=== PATIENT | male | born 1950 | race Caucasian/White ===

== ENCOUNTER 2017-09-17 20:32 | Inpatient (IN) | payer MEDICARE, MEDICAID ==
[~2017-09-17] VITALS: Ht 195.6 cm; Wt 112.0 kg
[2017-09-17 21:03] LABS: BASO # 0.1 x10^3/uL (0.0-0.2); BASO % 1 % (0-3); EOS # 0.5 x10^3/uL (0.0-0.7); EOS % 5 % (0-3); HEMATOCRIT 42.5 % (39.0-53.0); HEMOGLOBIN 14.5 g/dL (13.0-17.5); LYMPH # 2.2 x10^3/uL (1.0-4.8); LYMPH % 23 % (24-48); MEAN CORPUSCULAR HEMOGLOBIN 31 pg (25-35); MEAN CORPUSCULAR HGB CONC 34 g/dL (31-37); MEAN CORPUSCULAR VOLUME 91 fL (79-100); MONO # 0.6 x10^3/uL (0.0-1.1); MONO % 7 % (0-9); NEUT # 6.3 x10^3uL (1.8-7.7); NEUT % 65 % (31-73); PLATELET COUNT 213 x10^3/uL (140-400); RED BLOOD COUNT 4.66 x10^6/uL (4.30-5.70); RED CELL DISTRIBUTION WIDTH 15.5 % (11.5-14.5); WHITE BLOOD COUNT 9.8 x10^3/uL (4.0-11.0)
[2017-09-17 21:14] LABS: ALBUMIN 2.9 g/dL (3.4-5.0); ALBUMIN/GLOBULIN RATIO 0.7 (1.0-1.7); CALCIUM 9.3 mg/dL (8.5-10.1); GFR 74.3; POTASSIUM 4.1 mmol/L (3.5-5.1); TOTAL BILIRUBIN 0.5 mg/dL (0.2-1.0); TOTAL PROTEIN 7.3 g/dL (6.4-8.2)
[2017-09-17] MEDS ORDERED: BISA10SU2 RC (21:20)
[2017-09-17] MEDS ORDERED: APIX5TAB3 PO (21:20)
[2017-09-17] MEDS ORDERED: QUET25TA5 PO (21:20)
[2017-09-17] MEDS ORDERED: CARV25TA PO (21:20)
[2017-09-17] MEDS ORDERED: LISI-338 PO (21:20)
[2017-09-17] MEDS ORDERED: TRAM50TA PO (21:20)
[2017-09-17] MEDS ORDERED: MELA3TAB2 PO (21:20)
[2017-09-17] MEDS ORDERED: ACET325T9 PO (21:20)
[2017-09-17] MEDS ORDERED: POLY17PO5 PO (21:20)
[2017-09-17] MEDS ORDERED: LEXAPRO10 MG PO (21:20)
[2017-09-17] MEDS ORDERED: NA P133E2 RC (21:20)
[2017-09-17] MEDS ORDERED: CLOP75TA PO (21:20)
[2017-09-17] MEDS ORDERED: BACL10TA PO (21:20)
[2017-09-17] MEDS ORDERED: NYST60PO TP (21:20)
[2017-09-17] MEDS ORDERED: MULT-114 PO (21:20)
[2017-09-17] MEDS ORDERED: HYDR-971 PO (21:20)
[2017-09-17] MEDS ORDERED: SENN1TAB7 PO (21:20)
[2017-09-17] MEDS ORDERED: NITR0.4T SL (21:20)
[2017-09-17] MEDS ORDERED: ATOR10TA60 PO (21:20)
[2017-09-17] MEDS ORDERED: POTA20TA4 PO (21:20)
[2017-09-17] MEDS ORDERED: ZINC220T PO (21:20)
[2017-09-17] MEDS ORDERED: MAG355OR11 PO (21:20)
[2017-09-17] MEDS ORDERED: MAGN2400 PO (21:20)
[2017-09-17] MEDS ORDERED: AMIT50TA PO (21:20)
[2017-09-17] MEDS ORDERED: prostat PO (21:20)
[2017-09-17] MEDS ORDERED: ALLO300T PO (21:20)
[2017-09-17] MEDS ORDERED: [UNRECOGNIZED DRUG - CODE] PO (21:20)
[2017-09-17] MEDS ORDERED: FURO40TA4 PO (21:20)
--- NOTE | 2017-09-17 21:32 | PHYS DOC ---
Past History Past Medical History: A-Fib, Depression, Diabetes, High Cholesterol, Heart Disease, Hypertension, P.U.D, Other Past Surgical History: Other Alcohol Use: None Drug Use: None Adult General Chief Complaint Chief Complaint: PSYCH EVALUATION HPI HPI Patient is a 59-year-old gentleman who has a history significant for psychosis, insomnia, atrial fibrillation, delusional disorder, CVA with left sided residual weakness, epileptic spasms, presents here today secondary to need for medical clearance for evaluation by [facility]. Patient was sent from his nursing facility secondary to inappropriate sexual comments, refusing treatment and meds, increased agitation since admission, and verbalizing suicidal ideation with no plan. The patient currently without any other complaints. Patient has any fevers shakes chills nausea vomiting diarrhea. Review of systems: Constitutional: Denies fever or chills Eyes: Denies change in visual acuity, redness, or eye pain HENT: Denies nasal congestion or sore throat All other review systems are negative except as documented in the history of present illness portion. Physical exam: Constitutional: Well developed, well nourished, no acute distress, non-toxic appearance. HENT: Normocephalic, atraumatic, bilateral external ears normal, nose normal. Eyes: EOMI, conjunctiva normal, no discharge. Neck: Normal range of motion, no tenderness, supple, no stridor. Cardiovascular: Irregular rhythm Lungs & Thorax: Bilateral breath sounds clear to auscultation no respiratory distress Abdomen: Bowel sounds normal, soft, no tenderness, no masses, no pulsatile masses. Obese Skin: Warm, dry, no erythema, no rash. Back: No tenderness, no CVA tenderness. Extremities: No tenderness, no cyanosis, Neurologic: Alert and oriented X 3, Psychologic: Affect normal 59-year-old gentleman who presents here today secondary to need for medical clearance for [facility]. Patient's clinically and hemodynamically stable. Patient will be cleared for evaluation by [facility]. Patient is CBC, CMP which are both normal. Patient will have a UA is on EKG evaluated. Current Patient Data Vital Signs Vital Signs Date Time Temp Pulse Resp B/P (MAP) Pulse Ox O2 Delivery O2 Flow Rate FiO2 09/17/17 20:32 97.6 87 16 98 Room Air Lab Results Laboratory Tests Test 09/17/17 20:39 White Blood Count 9.8 x10^3/uL (4.0-11.0) Red Blood Count 4.66 x10^6/uL (4.30-5.70) Hemoglobin 14.5 g/dL (13.0-17.5) Hematocrit 42.5 % (39.0-53.0) Mean Corpuscular Volume 91 fL (79-100) Mean Corpuscular Hemoglobin 31 pg (25-35) Mean Corpuscular Hemoglobin Concent 34 g/dL (31-37) Red Cell Distribution Width 15.5 % (11.5-14.5) H Platelet Count 213 x10^3/uL (140-400) Neutrophils (%) (Auto) 65 % (31-73) Lymphocytes (%) (Auto) 23 % (24-48) L Monocytes (%) (Auto) 7 % (0-9) Eosinophils (%) (Auto) 5 % (0-3) H Basophils (%) (Auto) 1 % (0-3) Neutrophils # (Auto) 6.3 x10^3uL (1.8-7.7) Lymphocytes # (Auto) 2.2 x10^3/uL (1.0-4.8) Monocytes # (Auto) 0.6 x10^3/uL (0.0-1.1) Eosinophils # (Auto) 0.5 x10^3/uL (0.0-0.7) Basophils # (Auto) 0.1 x10^3/uL (0.0-0.2) Sodium Level 138 mmol/L (136-145) Potassium Level 4.1 mmol/L (3.5-5.1) Chloride Level 101 mmol/L (98-107) Carbon Dioxide Level 25 mmol/L (21-32) Anion Gap 12 (6-14) Blood Urea Nitrogen 18 mg/dL (8-26) Creatinine 1.0 mg/dL (0.7-1.3) Estimated GFR (Cockcroft-Gault) 74.3 BUN/Creatinine Ratio 18 (6-20) Glucose Level 174 mg/dL (70-99) H Calcium Level 9.3 mg/dL (8.5-10.1) Magnesium Level 2.0 mg/dL (1.8-2.4) Total Bilirubin 0.5 mg/dL (0.2-1.0) Aspartate Amino Transferase (AST) 23 U/L (15-37) Alanine Aminotransferase (ALT) 23 U/L (16-63) Alkaline Phosphatase 132 U/L (46-116) H Total Protein 7.3 g/dL (6.4-8.2) Albumin 2.9 g/dL (3.4-5.0) L Albumin/Globulin Ratio 0.7 (1.0-1.7) L EKG EKG [] Radiology/Procedures Radiology/Procedures [] Course & Med Decision Making Course & Med Decision Making Pertinent Labs and Imaging studies reviewed. (See chart for details) [] Dragon Disclaimer Dragon Disclaimer This electronic medical record was generated, in whole or in part, using a voice recognition dictation system. Departure Departure: Impression: Primary Impression: Depression Additional Impressions: Suicidal ideation Agitation Disposition: ADMITTED INPATIENT Condition: LEFT WITHOUT BEING SEEN Problem Qualifiers MOLLY FULTON MD Sep 17, 2017 21:32
[2017-09-17 21:57] LABS: BACTERIA,URINE 0 /HPF (0-FEW); BILIRUBIN,URINE NEG (NEG); CLARITY,URINE HAZY; COLOR,URINE YELLOW; GLUCOSE,URINE NEG (NEG); NITRITE,URINE NEG (NEG); SQUAMOUS EPITHELIAL CELL,UR FEW /LPF; UROBILINOGEN,URINE 1 mg/dL (0.2 mg/dL)
[2017-09-17 21:58] LABS: HYALINE CASTS, URINE FEW /HPF; YEAST,URINE PRESENT /HPF
[2017-09-17] MEDS ORDERED: CIPROFLOXACIN HCL 500 MG TABLET PO ONE ×2 (22:15→23:00)
[2017-09-17] MEDS ORDERED: METHYL SALICYLATE/MENTHOL TOPICAL OINTMENT 29GM TUBE. TP PRN (22:45)
[2017-09-17 22:57] VITALS: BP 130/78
[2017-09-18] MEDS: traMADol 50 MG TABLET PO SCH ×2 (00:03→20:58)
--- NOTE | 2017-09-18 00:57 | EKG ---
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
[2017-09-18] MEDS: MELATONIN 3 MG TABLET PO PRN ×2 (02:17→20:57)
[2017-09-18 05:52] VITALS: BP 129/70
[2017-09-18] MEDS ORDERED: BACLOFEN 10 MG TABLET PO PRN (08:15)
[2017-09-18] MEDS ORDERED: NYSTATIN TOPICAL POWDER 15GM BOTTLE. TP PRN (08:15)
[2017-09-18] MEDS ORDERED: NITROGLYCERIN SUBLINGUAL 0.4 MG BOTTLE OF 25. SL PRN (08:15)
[2017-09-18] MEDS ORDERED: SENNOSIDES/DOCUSATE 8.6/50MG TABLET. PO PRN (08:15)
[2017-09-18] MEDS ORDERED: SODIUM PHOSPHATES 19/7GM 133 ML ENEMA. RC PRN (08:15)
[2017-09-18] MEDS ORDERED: BISACODYL 10 MG SUPP.RECT RC PRN (08:15)
[2017-09-18] MEDS: APIXABAN 5 MG TABLET. PO SCH ×2 (09:58→17:08)
[2017-09-18] MEDS: CARVEDILOL 12.5 MG TABLET PO SCH ×2 (09:59→17:00)
[2017-09-18] MEDS: CLOPIDOGREL BISULFATE 75 MG TABLET PO SCH (09:59)
[2017-09-18] MEDS: FUROSEMIDE 40 MG TABLET PO SCH (09:59)
[2017-09-18] MEDS: QUEtiapine 25 MG TABLET. PO SCH ×2 (09:59→20:55)
[2017-09-18] MEDS: CITALOPRAM 20 MG TABLET. PO SCH (09:59)
[2017-09-18] MEDS: POLYETHYLENE GLYCOL 3350 17 GM PACKET. PO SCH (10:00)
[2017-09-18] MEDS: POTASSIUM CHLORIDE 20 MEQ TABLET.ER. PO SCH (10:00)
[2017-09-18] MEDS: ZINC SULFATE 220 MG CAPSULE. PO SCH (10:00)
[2017-09-18] MEDS: ALLOPURINOL 300 MG TABLET. PO SCH (10:00)
[2017-09-18] MEDS: LISINOPRIL 5 MG TABLET. PO SCH (10:00)
[2017-09-18] MEDS: ASCORBIC ACID 500 MG TABLET PO SCH (10:01)
[2017-09-18] MEDS: HYDROcodone/APAP 5/325MG 1 TAB TABLET PO PRN (10:30)
--- NOTE | 2017-09-18 11:50 | PDOC1 ---
History of Present Illness Reason for Visit: Behaviors History of Present Illness Pt sent from [facility] ER for evaluation in [facility] unit due to worsening depression, suicidal thoughts, inappropriate sexual comments. Pt has an extensive medical history. He is a max assist, wheelchair bound, and has a non stageable wound on his left heel and a wound on his sacral area as well (which pt says causes him quite a bit of pain). Pt has a hx of PE in June and afib, is on anticoagulation. Pt denies chest pain, SOA, coughing up blood, blood in stool, blood in urine, sore throat, dizziness, GARDNER, vision changes, abd pain, difficult swallowing, or skin rash. He tells me "I don't care what you do, but you're not cutting my toes or foot off, that's never happening." Chief Complaint: PSYCH EVALUATION Allergies: Coded Allergies: levofloxacin (Verified Allergy, Intermediate, 09/17/17) Past Medical History Cardiac: AFIB, HTN Pulmonary: Pulmonary embolus Psych: Depression Infectious disease: Human papilloma virus Dermatology: Other (Non-healing wounds) Past Surgical History: No pertinent history Family History: No pertinent hx Past Social History Smoke: No Lives: Detention Review of Systems Review Of Systems Fourteen system , review of systems has been reviewed. See HPI for pertinent positives and negative responses, other ortez all other systems are negative, non pertinent or non contributory Allergies: Coded Allergies: levofloxacin (Verified Allergy, Intermediate, 09/17/17) Medications Current Medications Ciprofloxacin (Cipro) 500 mg 1X ONCE PO ; Start 09/17/17 at 22:15; Stop at 22:30; Status DC Ciprofloxacin (Cipro) 500 mg 1X ONCE PO Last administered on 09/18/17at 00:08; Start 09/17/17 at 23:00; Stop 09/17/17 at 23:01; Status DC Multi-Ingredient Ointment (Analgesic [place]) 1 bob PRN QID PRN TP MUSCLE PAIN; Start 09/17/17 at 22:45 Amitriptyline HCl (Elavil) 50 mg HS PO ; Start 09/18/17 at 21:00 Quetiapine Fumarate (SEROquel) 25 mg BID PO Last administered on 09/18/17at 09: 59; Start 09/18/17 at 09:00 Citalopram Hydrobromide (CeleXA) 20 mg DAILY PO Last administered on 09/18/17at 09:59; Start 09/18/17 at 09:00 Melatonin 3 mg PRN QHS PRN PO INSOMNIA Last administered on 09/18/17at 02:17; Start 09/17/17 at 23:00 Tramadol HCl (Ultram) 100 mg QHS PO Last administered on 09/18/17at 00:03; Start 09/17/17 at 23:00 Acetaminophen (Tylenol) 650 mg PRN Q6HRS PRN PO PAIN / TEMP; Start 09/18/17 at 08:15 Allopurinol (Zyloprim) 300 mg DAILY PO Last administered on 09/18/17at 10:00; Start 09/18/17 at 09:00 Apixaban (Eliquis) 5 mg BIDWMEALS PO Last administered on 09/18/17at 09:58; Start 09/18/17 at 08:00 Ascorbic Acid (Vitamin C) 500 mg DAILY PO Last administered on 09/18/17at 10:01 ; Start 09/18/17 at 09:00 Atorvastatin Calcium (Lipitor) 10 mg QHS PO ; Start 09/18/17 at 21:00 Baclofen (Lioresal) 10 mg PRN Q6HRS PRN PO Epileptic Spasms; Start 09/18/17 at 08:15 Bisacodyl (Dulcolax Supp) 10 mg PRN DAILY PRN RC CONSTIPATION; Start 09/18/17 at 08:15 Clopidogrel Bisulfate (Plavix) 75 mg DAILY PO Last administered on 09/18/17at 09 :59; Start 09/18/17 at 09:00 Furosemide (Lasix) 40 mg DAILY PO Last administered on 09/18/17at 09:59; Start 09/18/17 at 09:00 Acetaminophen/ Hydrocodone Bitart (Lortab 5/325) 1 tab PRN Q6HRS PRN PO PAIN Last administered on 09/18/17at 10:30; Start 09/18/17 at 08:15 Lisinopril (Prinivil) 5 mg DAILY PO Last administered on 09/18/17at 10:00; Start 09/18/17 at 09:00 Sodium Biphosphate/ Sodium Phosphate (Fleet Adult) 133 ml PRN DAILY PRN RC CONSTIPATION; Start 09/18/17 at 08:15 Nitroglycerin (Nitrostat) 0.4 mg PRN Q5MIN PRN SL Unstable Angina; Start at 08:15 Nystatin (Nystop) 1 bob PRN BID PRN TP RASH; Start 09/18/17 at 08:15 Polyethylene Glycol (miraLAX) 17 gm DAILY PO Last administered on 09/18/17at 10: 00; Start 09/18/17 at 09:00 Potassium Chloride (Klor-Con) 20 meq DAILY PO Last administered on 09/18/17at 10 :00; Start 09/18/17 at 09:00 Senna/Docusate Sodium (Senna Plus) 2 tab PRN QHS PRN PO CONSTIPATION; Start at 08:15 Carvedilol (Coreg) 25 mg BIDWMEALS PO Last administered on 09/18/17at 09:59; Start 09/18/17 at 09:00 Zinc Sulfate (Orazinc) 220 mg DAILY PO Last administered on 09/18/17at 10:00; Start 09/18/17 at 09:00 Non-Formulary Medication ([prostat] ) 30 ml BIDWMEALS PO ; Start 09/18/17 at 17: 00; Status UNV Active Scripts Active Reported Furosemide 40 Mg Tablet 40 Mg PO DAILY Clopidogrel (Clopidogrel Bisulfate) 75 Mg Tablet 75 Mg PO DAILY Zinc Sulfate 220 Mg Tablet 220 Mg PO DAILY C-500 (Ascorbic Acid) 500 Mg Tablet 500 Mg PO DAILY Tylenol (Acetaminophen) 325 Mg Tablet 650 Mg PO PRN Q6HRS PRN Tramadol Hcl (Tramadol HCl) 50 Mg Tablet 100 Mg PO QHS Seroquel (Quetiapine Fumarate) 25 Mg Tablet 25 Mg PO BID Senna-Docusate Sodium Tablet (Sennosides/Docusate Sodium) 1 Each Tablet 2 Tab PO PRN QHS PRN [prostat] 30 Ml PO BIDWMEALS Klor-Con M20 (Potassium Chloride) 20 Meq Tab.er.prt 20 Meq PO DAILY Nystop (Nystatin) 60 Gm Powder 1 Bob TP PRN BID PRN [place] 5-325 Tablet (Hydrocodone Bit/Acetaminophen) 1 Each Tablet 1 Tab PO PRN Q6HRS PRN Nitrostat (Nitroglycerin) 0.4 Mg Tab.subl 0.4 Mg SL PRN Q5MIN PRN Maalox Advanced Suspension (Mag Hydrox/Aluminum Hyd/Simeth) 355 Ml Oral.susp 30 Ml PO PRN QID PRN Multivitamins With Minerals (Multivitamin With Minerals) 1 Each Tablet 1 Tab PO DAILY Miralax (Polyethylene Glycol 3350) 17 Gm Powd.pack 17 Gm PO DAILY Milk Of Magnesia (Magnesium Hydroxide) 2,400 Mg/10 Ml Oral.susp 2,400 Mg PO PRN QID PRN Melatonin 3 Mg Tablet 3 Mg PO PRN QHS PRN Lisinopril 5 Mg Tablet 5 Mg PO DAILY Lexapro (Escitalopram Oxalate) 10 Mg Tablet 10 Mg PO DAILY Fleet Enema (Na Phos,M-B/Na Phos,Di-Ba) 133 Ml Enema 133 Ml RC PRN DAILY PRN Eliquis (Apixaban) 5 Mg Tablet 5 Mg PO BIDWMEALS Coreg (Carvedilol) 25 Mg Tablet 25 Mg PO BIDWMEALS Bisacodyl 10 Mg Supp.rect 10 Mg RC PRN DAILY PRN Baclofen 10 Mg Tablet 10 Mg PO PRN Q6HRS PRN Atorvastatin Calcium 10 Mg Tablet 10 Mg PO QHS Amitriptyline Hcl 50 Mg Tablet 50 Mg PO HS Allopurinol 300 Mg Tablet 300 Mg PO DAILY Exam Vital Signs Vital Signs Date Time Temp Pulse Resp B/P (MAP) Pulse Ox O2 Delivery O2 Flow Rate FiO2 09/18/17 10:30 96 09/18/17 10:00 80 129/70 09/18/17 05:52 98.2 16 09/18/17 01:03 Room Air General Appearance: Alert, Oriented X3, Cooperative, No acute distress HEENT: Atraumatic, PERRLA, EOMI, Mucous membr. moist/pink, Other (Sclerae anicteric; Neck supple, no JVD, no LAD, ROM normal) Respiratory: Clear to auscultation, Normal air movement Heart: Other (Irregularly irregular, no murmur) Cardiac: AFIB Abdominal: Normal bowel sounds, Soft, No tenderness, No hepatospenomegaly, No masses Extremities: No edema, Other (DP pulses palpable but diminished bilaterally) Skin: No rashes (Wounds documented in chart, heel wound on left leg non stageable) Neuro: Normal speech, Cranial nerves 3-12 NL, Other (WC-bound) Psych/Mental Status: Other (Depressed, seems oriented) Assessment/Plan Assessment/Plan 1. Depression w/ abnormal behaviors/psychosis: Per Dr. Bell. 2. Afib: Rate controlled. COnt home meds. Cont NOAC for anticoagulation, pt high risk of stroke. 3. PE, hx oF: Cont NOAC. Monitor labs periodically. 4. Unstageable pressure ulcer left lower extremity: Wound care consult. padded heel cover. Pt w/ hx of osteomyelitis, unclear how long ago. Recently on Augmentin. WBC normal. Check ESR. Check left foot xray. 5. Sacral ulcer: Wound care consult. Frequent turning. padded chair. 6. Pyuria: 11-20 WBC's on UA but neg nitrite and 0 bacteria. No indication for abx. Pt given Cipro in ER, will not continue. COURSE Allergies Coded Allergies Type Severity Reaction Last Updated Verified levofloxacin Allergy Intermediate 09/17/17 Yes Laboratory Tests Test 09/17/17 20:39 09/17/17 20:57 09/18/17 07:48 White Blood Count 9.8 x10^3/uL (4.0-11.0) Red Blood Count 4.66 x10^6/uL (4.30-5.70) Hemoglobin 14.5 g/dL (13.0-17.5) Hematocrit 42.5 % (39.0-53.0) Mean Corpuscular Volume 91 fL (79-100) Mean Corpuscular Hemoglobin 31 pg (25-35) Mean Corpuscular Hemoglobin Concent 34 g/dL (31-37) Red Cell Distribution Width 15.5 % (11.5-14.5) Platelet Count 213 x10^3/uL (140-400) Neutrophils (%) (Auto) 65 % (31-73) Lymphocytes (%) (Auto) 23 % (24-48) Monocytes (%) (Auto) 7 % (0-9) Eosinophils (%) (Auto) 5 % (0-3) Basophils (%) (Auto) 1 % (0-3) Neutrophils # (Auto) 6.3 x10^3uL (1.8-7.7) Lymphocytes # (Auto) 2.2 x10^3/uL (1.0-4.8) Monocytes # (Auto) 0.6 x10^3/uL (0.0-1.1) Eosinophils # (Auto) 0.5 x10^3/uL (0.0-0.7) Basophils # (Auto) 0.1 x10^3/uL (0.0-0.2) Sodium Level 138 mmol/L (136-145) Potassium Level 4.1 mmol/L (3.5-5.1) Chloride Level 101 mmol/L (98-107) Carbon Dioxide Level 25 mmol/L (21-32) Anion Gap 12 (6-14) Blood Urea Nitrogen 18 mg/dL (8-26) Creatinine 1.0 mg/dL (0.7-1.3) Estimated GFR (Cockcroft-Gault) 74.3 BUN/Creatinine Ratio 18 (6-20) Glucose Level 174 mg/dL (70-99) Calcium Level 9.3 mg/dL (8.5-10.1) Magnesium Level 2.0 mg/dL (1.8-2.4) Total Bilirubin 0.5 mg/dL (0.2-1.0) Aspartate Amino Transf (AST/SGOT) 23 U/L (15-37) Alanine Aminotransferase (ALT/SGPT) 23 U/L (16-63) Alkaline Phosphatase 132 U/L (46-116) Total Protein 7.3 g/dL (6.4-8.2) Albumin 2.9 g/dL (3.4-5.0) Albumin/Globulin Ratio 0.7 (1.0-1.7) Urine Collection Type Unknown Urine Color Yellow Urine Clarity Hazy Urine pH 6.5 Urine Specific [place] 1.015 Urine Protein Trace (NEG-TRACE) Urine Glucose (UA) Neg mg/dL (NEG) Urine Ketones (Stick) Neg mg/dL (NEG) Urine Blood Neg (NEG) Urine Nitrite Neg (NEG) Urine Bilirubin Neg (NEG) Urine Urobilinogen Dipstick 1 mg/dL (0.2 mg/dL) Urine Leukocyte Esterase Trace (NEG) Urine RBC 1-2 /HPF (0-2) Urine WBC 11-20 /HPF (0-4) Urine Squamous Epithelial Cells Few /LPF Urine Bacteria 0 /HPF (0-FEW) Urine Hyaline Casts Few /HPF Urine Mucus Mod /LPF Urine Yeast Present /HPF Glucose (Fingerstick) 124 mg/dL (70-99) Current Medications Medications (Trade) Dose Ordered Sig/Shira Route PRN Reason Start Time Stop Time Status Last Admin Dose Admin Ciprofloxacin (Cipro) 500 mg 1X ONCE PO 09/17/17 22:15 09/17/17 22:30 DC Ciprofloxacin (Cipro) 500 mg 1X ONCE PO 09/17/17 23:00 09/17/17 23:01 DC 09/18/17 00:08 Multi-Ingredient Ointment (Analgesic [place]) 1 bob PRN QID PRN TP MUSCLE PAIN 09/17/17 22:45 Amitriptyline HCl (Elavil) 50 mg HS PO 09/18/17 21:00 Quetiapine Fumarate (SEROquel) 25 mg BID PO 09/18/17 09:00 09/18/17 09:59 Citalopram Hydrobromide (CeleXA) 20 mg DAILY PO 09/18/17 09:00 09/18/17 09:59 Melatonin 3 mg PRN QHS PRN PO INSOMNIA 09/17/17 23:00 09/18/17 02:17 Tramadol HCl (Ultram) 100 mg QHS PO 09/17/17 23:00 09/18/17 00:03 Acetaminophen (Tylenol) 650 mg PRN Q6HRS PRN PO PAIN / TEMP 09/18/17 08:15 Allopurinol (Zyloprim) 300 mg DAILY PO 09/18/17 09:00 09/18/17 10:00 Apixaban (Eliquis) 5 mg BIDWMEALS PO 09/18/17 08:00 09/18/17 09:58 Ascorbic Acid (Vitamin C) 500 mg DAILY PO 09/18/17 09:00 09/18/17 10:01 Atorvastatin Calcium (Lipitor) 10 mg QHS PO 09/18/17 21:00 Baclofen (Lioresal) 10 mg PRN Q6HRS PRN PO Epileptic Spasms 09/18/17 08:15 Bisacodyl (Dulcolax Supp) 10 mg PRN DAILY PRN RC CONSTIPATION 09/18/17 08:15 Clopidogrel Bisulfate (Plavix) 75 mg DAILY PO 09/18/17 09:00 09/18/17 09:59 Furosemide (Lasix) 40 mg DAILY PO 09/18/17 09:00 09/18/17 09:59 Acetaminophen/ Hydrocodone Bitart (Lortab 5/325) 1 tab PRN Q6HRS PRN PO PAIN 09/18/17 08:15 09/18/17 10:30 Lisinopril (Prinivil) 5 mg DAILY PO 09/18/17 09:00 09/18/17 10:00 Sodium Biphosphate/ Sodium Phosphate (Fleet Adult) 133 ml PRN DAILY PRN RC CONSTIPATION 09/18/17 08:15 Nitroglycerin (Nitrostat) 0.4 mg PRN Q5MIN PRN SL Unstable Angina 09/18/17 08:15 Nystatin (Nystop) 1 bob PRN BID PRN TP RASH 09/18/17 08:15 Polyethylene Glycol (miraLAX) 17 gm DAILY PO 09/18/17 09:00 09/18/17 10:00 Potassium Chloride (Klor-Con) 20 meq DAILY PO 09/18/17 09:00 09/18/17 10:00 Senna/Docusate Sodium (Senna Plus) 2 tab PRN QHS PRN PO CONSTIPATION 09/18/17 08:15 Carvedilol (Coreg) 25 mg BIDWMEALS PO 09/18/17 09:00 09/18/17 09:59 Zinc Sulfate (Orazinc) 220 mg DAILY PO 09/18/17 09:00 09/18/17 10:00 Non-Formulary Medication ([prostat] ) 30 ml BIDWMEALS PO 09/18/17 17:00 UNV Vital Signs Date Time Temp Pulse Resp B/P (MAP) Pulse Ox O2 Delivery O2 Flow Rate FiO2 09/18/17 10:30 96 09/18/17 10:00 80 129/70 09/18/17 05:52 98.2 16 09/18/17 01:03 Room Air EKG: Afib, no acute ischemia JUAN ABURTO MD Sep 18, 2017 11:50
[2017-09-18 12:16] LABS: THYROID STIM HORMONE (TSH) 0.634 uIU/mL (0.358-3.740)
[2017-09-18 16:03] VITALS: BP 92/58
--- NOTE | 2017-09-18 16:13 | RAD ---
Left foot, 3 views, 09/18/2017: History: Heel ulcer, infection, possible osteomyelitis Moderate patchy bony demineralization is evident. There is a mild hallux valgus deformity with moderate degenerative change at the first MTP joint. There are additional moderate scattered degenerative changes at interphalangeal joints and the midfoot level. No acute fracture or destructive bony lesion is seen. Extensive arterial calcifications are present. Surgical clips are evident medially at the ankle level. IMPRESSION: 1. Patchy bony demineralization. 2. Moderate degenerative changes. 3. No acute bony abnormality is detected.
[2017-09-18] MEDS ORDERED: PROSTAT PO SCH (17:00)
[2017-09-18 17:40] VITALS: BP 101/62
[2017-09-18 19:10] LABS: T3 TOTAL 88 ng/dL (71-180); THYROXINE 6.8 ug/dL (4.5-12.0)
[2017-09-18] MEDS: AMITRIPTYLINE HCL 50 MG TABLET PO SCH (20:57)
[2017-09-18] MEDS: ATORVASTATIN CALCIUM 10 MG TABLET. PO SCH (20:57)
--- NOTE | 2017-09-18 20:58 | PDOC ---
Exam Note: Bon Note: Please also refer to the separate dictated note~for this date of service dictated separately.~Patient seen individually. Discussed the patient with Nursing staff reviewed the chart.~Reviewed interim history and current functioning. Reviewed vital signs,~Labs/ Radiology~and current medications noted below. Continue current treatment with the changes noted in the dictated addendum note Assessment: Vital Signs: Vital Signs Date Time Temp Pulse Resp B/P (MAP) Pulse Ox O2 Delivery O2 Flow Rate FiO2 09/18/17 17:40 56 20 101/62 (75) Room Air 09/18/17 16:03 97.5 97 Labs: Laboratory Tests Test 09/18/17 07:48 09/18/17 15:40 Glucose (Fingerstick) 124 mg/dL (70-99) H Erythrocyte Sedimentation Rate 24 (0-15) H Current Medications: Meds: Current Medications Ciprofloxacin (Cipro) 500 mg 1X ONCE PO ; Start 09/17/17 at 22:15; Stop at 22:30; Status DC Ciprofloxacin (Cipro) 500 mg 1X ONCE PO Last administered on 09/18/17at 00:08; Start 09/17/17 at 23:00; Stop 09/17/17 at 23:01; Status DC Multi-Ingredient Ointment (Analgesic [place]) 1 bob PRN QID PRN TP MUSCLE PAIN; Start 09/17/17 at 22:45 Amitriptyline HCl (Elavil) 50 mg HS PO ; Start 09/18/17 at 21:00 Quetiapine Fumarate (SEROquel) 25 mg BID PO Last administered on 09/18/17at 09: 59; Start 09/18/17 at 09:00 Citalopram Hydrobromide (CeleXA) 20 mg DAILY PO Last administered on 09/18/17at 09:59; Start 09/18/17 at 09:00 Melatonin 3 mg PRN QHS PRN PO INSOMNIA Last administered on 09/18/17at 02:17; Start 09/17/17 at 23:00 Tramadol HCl (Ultram) 100 mg QHS PO Last administered on 09/18/17at 00:03; Start 09/17/17 at 23:00 Acetaminophen (Tylenol) 650 mg PRN Q6HRS PRN PO PAIN / TEMP; Start 09/18/17 at 08:15 Allopurinol (Zyloprim) 300 mg DAILY PO Last administered on 09/18/17at 10:00; Start 09/18/17 at 09:00 Apixaban (Eliquis) 5 mg BIDWMEALS PO Last administered on 09/18/17at 17:08; Start 09/18/17 at 08:00 Ascorbic Acid (Vitamin C) 500 mg DAILY PO Last administered on 09/18/17at 10:01 ; Start 09/18/17 at 09:00 Atorvastatin Calcium (Lipitor) 10 mg QHS PO ; Start 09/18/17 at 21:00 Baclofen (Lioresal) 10 mg PRN Q6HRS PRN PO Epileptic Spasms; Start 09/18/17 at 08:15 Bisacodyl (Dulcolax Supp) 10 mg PRN DAILY PRN RC CONSTIPATION; Start 09/18/17 at 08:15 Clopidogrel Bisulfate (Plavix) 75 mg DAILY PO Last administered on 09/18/17at 09 :59; Start 09/18/17 at 09:00 Furosemide (Lasix) 40 mg DAILY PO Last administered on 09/18/17at 09:59; Start 09/18/17 at 09:00 Acetaminophen/ Hydrocodone Bitart (Lortab 5/325) 1 tab PRN Q6HRS PRN PO PAIN Last administered on 09/18/17at 10:30; Start 09/18/17 at 08:15 Lisinopril (Prinivil) 5 mg DAILY PO Last administered on 09/18/17at 10:00; Start 09/18/17 at 09:00 Sodium Biphosphate/ Sodium Phosphate (Fleet Adult) 133 ml PRN DAILY PRN RC CONSTIPATION; Start 09/18/17 at 08:15 Nitroglycerin (Nitrostat) 0.4 mg PRN Q5MIN PRN SL Unstable Angina; Start at 08:15 Nystatin (Nystop) 1 bob PRN BID PRN TP RASH; Start 09/18/17 at 08:15 Polyethylene Glycol (miraLAX) 17 gm DAILY PO Last administered on 09/18/17at 10: 00; Start 09/18/17 at 09:00 Potassium Chloride (Klor-Con) 20 meq DAILY PO Last administered on 09/18/17at 10 :00; Start 09/18/17 at 09:00 Senna/Docusate Sodium (Senna Plus) 2 tab PRN QHS PRN PO CONSTIPATION; Start at 08:15 Carvedilol (Coreg) 25 mg BIDWMEALS PO Last administered on 09/18/17at 09:59; Start 09/18/17 at 09:00 Zinc Sulfate (Orazinc) 220 mg DAILY PO Last administered on 09/18/17at 10:00; Start 09/18/17 at 09:00 Non-Formulary Medication ([prostat] ) 30 ml BIDWMEALS PO ; Start 09/18/17 at 17: 00; Status UNV Active Scripts Active Reported Furosemide 40 Mg Tablet 40 Mg PO DAILY Clopidogrel (Clopidogrel Bisulfate) 75 Mg Tablet 75 Mg PO DAILY Zinc Sulfate 220 Mg Tablet 220 Mg PO DAILY C-500 (Ascorbic Acid) 500 Mg Tablet 500 Mg PO DAILY Tylenol (Acetaminophen) 325 Mg Tablet 650 Mg PO PRN Q6HRS PRN Tramadol Hcl (Tramadol HCl) 50 Mg Tablet 100 Mg PO QHS Seroquel (Quetiapine Fumarate) 25 Mg Tablet 25 Mg PO BID Senna-Docusate Sodium Tablet (Sennosides/Docusate Sodium) 1 Each Tablet 2 Tab PO PRN QHS PRN [prostat] 30 Ml PO BIDWMEALS Klor-Con M20 (Potassium Chloride) 20 Meq Tab.er.prt 20 Meq PO DAILY Nystop (Nystatin) 60 Gm Powder 1 Bob TP PRN BID PRN [place] 5-325 Tablet (Hydrocodone Bit/Acetaminophen) 1 Each Tablet 1 Tab PO PRN Q6HRS PRN Nitrostat (Nitroglycerin) 0.4 Mg Tab.subl 0.4 Mg SL PRN Q5MIN PRN Maalox Advanced Suspension (Mag Hydrox/Aluminum Hyd/Simeth) 355 Ml Oral.susp 30 Ml PO PRN QID PRN Multivitamins With Minerals (Multivitamin With Minerals) 1 Each Tablet 1 Tab PO DAILY Miralax (Polyethylene Glycol 3350) 17 Gm Powd.pack 17 Gm PO DAILY Milk Of Magnesia (Magnesium Hydroxide) 2,400 Mg/10 Ml Oral.susp 2,400 Mg PO PRN QID PRN Melatonin 3 Mg Tablet 3 Mg PO PRN QHS PRN Lisinopril 5 Mg Tablet 5 Mg PO DAILY Lexapro (Escitalopram Oxalate) 10 Mg Tablet 10 Mg PO DAILY Fleet Enema (Na Phos,M-B/Na Phos,Di-Ba) 133 Ml Enema 133 Ml RC PRN DAILY PRN Eliquis (Apixaban) 5 Mg Tablet 5 Mg PO BIDWMEALS Coreg (Carvedilol) 25 Mg Tablet 25 Mg PO BIDWMEALS Bisacodyl 10 Mg Supp.rect 10 Mg RC PRN DAILY PRN Baclofen 10 Mg Tablet 10 Mg PO PRN Q6HRS PRN Atorvastatin Calcium 10 Mg Tablet 10 Mg PO QHS Amitriptyline Hcl 50 Mg Tablet 50 Mg PO HS Allopurinol 300 Mg Tablet 300 Mg PO DAILY I have reviewed the current psychotropics carefully including drug interactions. Risk benefit ratio favors no change other than as noted in my dictated progress note. Diagnosis: Problems: (1) Anxiety disorder (2) Major depressive disorder, recurrent episode (3) Mild cognitive impairment MARILY LARSON MD Sep 18, 2017 20:58
[2017-09-19 03:18] LABS: HEMOGLOBIN A1C 5.3 % (4.8-5.6)
[2017-09-19 05:52] VITALS: BP 108/59
[2017-09-19] MEDS: ASCORBIC ACID 500 MG TABLET PO SCH (07:47)
[2017-09-19] MEDS: QUEtiapine 25 MG TABLET. PO SCH ×2 (07:47→19:57)
[2017-09-19] MEDS: POLYETHYLENE GLYCOL 3350 17 GM PACKET. PO SCH (07:47)
[2017-09-19] MEDS: CITALOPRAM 20 MG TABLET. PO SCH (07:49)
[2017-09-19] MEDS: CLOPIDOGREL BISULFATE 75 MG TABLET PO SCH (07:49)
[2017-09-19] MEDS: ZINC SULFATE 220 MG CAPSULE. PO SCH (07:49)
[2017-09-19] MEDS: FUROSEMIDE 40 MG TABLET PO SCH (07:49)
[2017-09-19] MEDS: ALLOPURINOL 300 MG TABLET. PO SCH (07:50)
[2017-09-19] MEDS: POTASSIUM CHLORIDE 20 MEQ TABLET.ER. PO SCH (07:50)
[2017-09-19] MEDS: APIXABAN 5 MG TABLET. PO SCH ×2 (07:50→17:36)
[2017-09-19] MEDS: LISINOPRIL 5 MG TABLET. PO SCH (08:25)
[2017-09-19] MEDS: CARVEDILOL 12.5 MG TABLET PO SCH ×2 (08:26→17:36)
[2017-09-19 08:27] VITALS: BP 125/70
--- NOTE | 2017-09-19 09:49 | HP ---
ADMIT DATE: 09/17/2017 This is a late entry of 09/18/2017 covers elements not covered in my initial note 09/18/2017. IDENTIFYING DATA: The patient is a 67-year-old male referred to us from [facility] by Dr. Hema Bonilla, his primary care physician and Dr. Sebastian, his psychiatrist on account of worsening suicidal ideation within the context of increased symptoms of depression, refusing medications and cares, being sexually inappropriate in his comments to staff. Agitation was increasing. He was unmanageable. The stress appeared to be possible suicide or accidental of his only son after the son fell off a scaffolding at the [employer] and the patient refuses to accept what they alleged was a suicide by the son. CHIEF COMPLAINT: "Yes, I am very depressed. I can't handle it. There is no point of living." HISTORY OF PRESENT ILLNESS: The patient has a history of worsening symptoms of depression for the past several weeks, much worse in the past several days. As noted, he admits to feeling helpless, hopeless, worthless with a suicidal repetitive thinking but without a plan. He admits to sleep and appetite changes, increased irritability, feeling there is nothing to look forward to. He is refusing his cares and treatments with worsening medical condition as a consequence of this including with respect to his wound care. He has also had worsening short term memory deficits. No clear symptoms of bipolar disorder or homicidal ideation. PAST PSYCHIATRIC HISTORY: As above. MEDICAL HISTORY: History of pulmonary embolism in 06/2017, history of BPH, hypertension, hyperlipidemia, osteomyelitis, status post TIA, CVA with left-sided weakness, diabetes mellitus, seizure disorder, atrial fibrillation, chronic pain, gout, dermatitis, malnutrition, ischemic cardiomyopathy, peripheral vascular disease, peripheral neuropathy, angina pectoris, pressure ulcer left heel which is unstageable. Accu-Cheks a.c. and at bedtime. CODE STATUS: DNR. ALLERGIES: LEVAQUIN. DIET: Regular, ADA. MEDICATIONS: Takes his medication whole when he does. Ambulates and wheelchair transfers needs ____ assist. No weightbearing on the left foot. UA was positive, 09/17/2017 in the ER, given Cipro x 1. The patient on the unit has been on a Broda chair and needs Clifford lift. CURRENT PSYCHOTROPICS: Amitriptyline 50 mg daily, melatonin 3 mg at bedtime p.r.n., Seroquel 25 mg b.i.d., melatonin p.r.n. In addition dietary as recommended, glucose control Boost in the morning and night in addition to his other diet prescribed. FAMILY HISTORY: Noncontributory. SOCIAL HISTORY: No alcohol, drug abuse, physical, sexual or elder abuse history is noted. He is not known to be a perpetrator, but has been making sexually inappropriate comments to nursing staff recently as noted above. 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 MENTAL STATUS EXAM: The patient was seen individually evening of 09/18/2017. He is in a Broda chair, oriented to self and situation, felt he had been here for 3 days whereas in fact he was admitted the previous evening. Speech has some latency, coherent. Abstraction fair, computation impaired, language function intact. Mood and affect is depressed. Admits to feeling helpless, hopeless and worthless. Denies active intent to hurt himself. Short-term memory is impaired. REVIEW OF SYSTEMS: Ambulation impaired, discomfort in his heel area. No CV, , pulmonary, eye system symptoms on review. IMPRESSION: Major depressive disorder, recurrent, severe with suicidal ideation. Major neurocognitive disorder, early vascular with depression, anxiety disorder unspecified, impulse control disorder unspecified. Rest unchanged from above. PLAN: Admit to Geropsychiatry unit at [facility]. I will see the patient daily individually from a psychiatric standpoint, medical followup per Dr. Dyer/Dr. Wellington. In fact, Dr. Bowman is covering this week. Continue current psychotropics, change the amitriptyline to bedtime, starting 09/19/2017 we will add Wellbutrin-XL 150 mg a day and increase gradually. Adjust further as clinically indicated. MAN Tatiana LARSON MD DR: ALEXSANDER/ana maria JOB#: [id number] / [id number]
[2017-09-19 16:11] VITALS: BP 112/68
[2017-09-19] MEDS: buPROPion XL 150 MG TAB.ER.24H PO SCH (17:36)
[2017-09-19] MEDS: ATORVASTATIN CALCIUM 10 MG TABLET. PO SCH (19:56)
[2017-09-19] MEDS: AMITRIPTYLINE HCL 50 MG TABLET PO SCH (19:56)
[2017-09-19] MEDS: traMADol 50 MG TABLET PO SCH (19:58)
--- NOTE | 2017-09-19 20:59 | PDOC ---
Exam Note: Bon Note: Please also refer to the separate dictated note~for this date of service dictated separately.~Patient seen individually. Discussed the patient with Nursing staff reviewed the chart.~Reviewed interim history and current functioning. Reviewed vital signs,~Labs/ Radiology~and current medications noted below. Continue current treatment with the changes noted in the dictated addendum note Assessment: Vital Signs: Vital Signs Date Time Temp Pulse Resp B/P (MAP) Pulse Ox O2 Delivery O2 Flow Rate FiO2 09/19/17 19:58 18 97 Room Air 09/19/17 17:36 66 112/68 09/19/17 16:11 97.7 I&O Intake and Output 09/19/17 07:00 Intake Total 1040 ml Balance 1040 ml Intake Oral 1040 ml Labs: Laboratory Tests Test 09/19/17 07:23 Glucose (Fingerstick) 117 mg/dL (70-99) H Current Medications: Meds: Current Medications Ciprofloxacin (Cipro) 500 mg 1X ONCE PO ; Start 09/17/17 at 22:15; Stop at 22:30; Status DC Ciprofloxacin (Cipro) 500 mg 1X ONCE PO Last administered on 09/18/17at 00:08; Start 09/17/17 at 23:00; Stop 09/17/17 at 23:01; Status DC Multi-Ingredient Ointment (Analgesic Mcgrann) 1 bob PRN QID PRN TP MUSCLE PAIN; Start 09/17/17 at 22:45 Amitriptyline HCl (Elavil) 50 mg HS PO Last administered on 09/19/17at 19:56; Start 09/18/17 at 21:00 Quetiapine Fumarate (SEROquel) 25 mg BID PO Last administered on 09/19/17at 19: 57; Start 09/18/17 at 09:00 Citalopram Hydrobromide (CeleXA) 20 mg DAILY PO Last administered on 09/19/17at 07:49; Start 09/18/17 at 09:00 Melatonin 3 mg PRN QHS PRN PO INSOMNIA Last administered on 09/18/17at 20:57; Start 09/17/17 at 23:00 Tramadol HCl (Ultram) 100 mg QHS PO Last administered on 09/19/17at 19:58; Start 09/17/17 at 23:00 Acetaminophen (Tylenol) 650 mg PRN Q6HRS PRN PO PAIN / TEMP; Start 09/18/17 at 08:15 Allopurinol (Zyloprim) 300 mg DAILY PO Last administered on 09/19/17 07:50; Start 09/18/17 at 09:00 Apixaban (Eliquis) 5 mg BIDWMEALS PO Last administered on 09/19/17 17:36; Start 09/18/17 at 08:00 Ascorbic Acid (Vitamin C) 500 mg DAILY PO Last administered on 09/19/17 07:47 ; Start 09/18/17 at 09:00 Atorvastatin Calcium (Lipitor) 10 mg QHS PO Last administered on 09/19/17 19: 56; Start 09/18/17 at 21:00 Baclofen (Lioresal) 10 mg PRN Q6HRS PRN PO Epileptic Spasms; Start 09/18/17 at 08:15 Bisacodyl (Dulcolax Supp) 10 mg PRN DAILY PRN RC CONSTIPATION; Start 09/18/17 at 08:15 Clopidogrel Bisulfate (Plavix) 75 mg DAILY PO Last administered on 09/19/17 07 :49; Start 09/18/17 at 09:00 Furosemide (Lasix) 40 mg DAILY PO Last administered on 09/19/17 07:49; Start 09/18/17 at 09:00 Acetaminophen/ Hydrocodone Bitart (Lortab 5/325) 1 tab PRN Q6HRS PRN PO PAIN Last administered on 09/18/17 10:30; Start 09/18/17 at 08:15 Lisinopril (Prinivil) 5 mg DAILY PO Last administered on 09/19/17at 08:25; Start 09/18/17 at 09:00 Sodium Biphosphate/ Sodium Phosphate (Fleet Adult) 133 ml PRN DAILY PRN RC CONSTIPATION; Start 09/18/17 at 08:15 Nitroglycerin (Nitrostat) 0.4 mg PRN Q5MIN PRN SL Unstable Angina; Start at 08:15 Nystatin (Nystop) 1 bob PRN BID PRN TP RASH; Start 09/18/17 at 08:15 Polyethylene Glycol (miraLAX) 17 gm DAILY PO Last administered on 09/19/17 07: 47; Start 09/18/17 at 09:00 Potassium Chloride (Klor-Con) 20 meq DAILY PO Last administered on 09/19/17at 07 :50; Start 09/18/17 at 09:00 Senna/Docusate Sodium (Senna Plus) 2 tab PRN QHS PRN PO CONSTIPATION; Start at 08:15 Carvedilol (Coreg) 25 mg BIDWMEALS PO Last administered on 09/19/17at 17:36; Start 09/18/17 at 09:00 Zinc Sulfate (Orazinc) 220 mg DAILY PO Last administered on 09/19/17at 07:49; Start 09/18/17 at 09:00 Non-Formulary Medication ([prostat] ) 30 ml BIDWMEALS PO ; Start 09/18/17 at 17: 00; Status UNV Bupropion HCl (Wellbutrin Xl) 150 mg DAILY PO Last administered on 09/19/17at 17 :36; Start 09/19/17 at 14:00 Active Scripts Active Reported Furosemide 40 Mg Tablet 40 Mg PO DAILY Clopidogrel (Clopidogrel Bisulfate) 75 Mg Tablet 75 Mg PO DAILY Zinc Sulfate 220 Mg Tablet 220 Mg PO DAILY C-500 (Ascorbic Acid) 500 Mg Tablet 500 Mg PO DAILY Tylenol (Acetaminophen) 325 Mg Tablet 650 Mg PO PRN Q6HRS PRN Tramadol Hcl (Tramadol HCl) 50 Mg Tablet 100 Mg PO QHS Seroquel (Quetiapine Fumarate) 25 Mg Tablet 25 Mg PO BID Senna-Docusate Sodium Tablet (Sennosides/Docusate Sodium) 1 Each Tablet 2 Tab PO PRN QHS PRN [prostat] 30 Ml PO BIDWMEALS Klor-Con M20 (Potassium Chloride) 20 Meq Tab.er.prt 20 Meq PO DAILY Nystop (Nystatin) 60 Gm Powder 1 Bob TP PRN BID PRN [place] 5-325 Tablet (Hydrocodone Bit/Acetaminophen) 1 Each Tablet 1 Tab PO PRN Q6HRS PRN Nitrostat (Nitroglycerin) 0.4 Mg Tab.subl 0.4 Mg SL PRN Q5MIN PRN Maalox Advanced Suspension (Mag Hydrox/Aluminum Hyd/Simeth) 355 Ml Oral.susp 30 Ml PO PRN QID PRN Multivitamins With Minerals (Multivitamin With Minerals) 1 Each Tablet 1 Tab PO DAILY Miralax (Polyethylene Glycol 3350) 17 Gm Powd.pack 17 Gm PO DAILY Milk Of Magnesia (Magnesium Hydroxide) 2,400 Mg/10 Ml Oral.susp 2,400 Mg PO PRN QID PRN Melatonin 3 Mg Tablet 3 Mg PO PRN QHS PRN Lisinopril 5 Mg Tablet 5 Mg PO DAILY Lexapro (Escitalopram Oxalate) 10 Mg Tablet 10 Mg PO DAILY Fleet Enema (Na Phos,M-B/Na Phos,Di-Ba) 133 Ml Enema 133 Ml RC PRN DAILY PRN Eliquis (Apixaban) 5 Mg Tablet 5 Mg PO BIDWMEALS Coreg (Carvedilol) 25 Mg Tablet 25 Mg PO BIDWMEALS Bisacodyl 10 Mg Supp.rect 10 Mg RC PRN DAILY PRN Baclofen 10 Mg Tablet 10 Mg PO PRN Q6HRS PRN Atorvastatin Calcium 10 Mg Tablet 10 Mg PO QHS Amitriptyline Hcl 50 Mg Tablet 50 Mg PO HS Allopurinol 300 Mg Tablet 300 Mg PO DAILY I have reviewed the current psychotropics carefully including drug interactions. Risk benefit ratio favors no change other than as noted in my dictated progress note. Diagnosis: Problems: (1) Anxiety disorder (2) Major depressive disorder, recurrent episode (3) Mild cognitive impairment MARILY LARSON MD Sep 19, 2017 20:59
[2017-09-20 05:49] VITALS: BP 110/67
[2017-09-20 07:01] LABS: BASO # 0.1 x10^3/uL (0.0-0.2); BASO % 1 % (0-3); EOS % 10 % (0-3); HEMOGLOBIN 13.9 g/dL (13.0-17.5); LYMPH # 2.2 x10^3/uL (1.0-4.8); LYMPH % 23 % (24-48); MEAN CORPUSCULAR HEMOGLOBIN 31 pg (25-35); MEAN CORPUSCULAR HGB CONC 34 g/dL (31-37); MEAN CORPUSCULAR VOLUME 90 fL (79-100); MONO # 0.7 x10^3/uL (0.0-1.1); MONO % 7 % (0-9); NEUT # 5.9 x10^3uL (1.8-7.7); NEUT % 60 % (31-73); PLATELET COUNT 196 x10^3/uL (140-400); RED BLOOD COUNT 4.54 x10^6/uL (4.30-5.70); RED CELL DISTRIBUTION WIDTH 15.2 % (11.5-14.5); WHITE BLOOD COUNT 9.9 x10^3/uL (4.0-11.0)
[2017-09-20 07:15] LABS: ALBUMIN/GLOBULIN RATIO 0.7 (1.0-1.7); CALCIUM 9.5 mg/dL (8.5-10.1); CREATININE 0.9 mg/dL (0.7-1.3); GFR 83.9; POTASSIUM 3.9 mmol/L (3.5-5.1); TOTAL BILIRUBIN 0.4 mg/dL (0.2-1.0); TOTAL PROTEIN 7.2 g/dL (6.4-8.2)
[2017-09-20] MEDS: POLYETHYLENE GLYCOL 3350 17 GM PACKET. PO SCH (07:35)
[2017-09-20] MEDS: ASCORBIC ACID 500 MG TABLET PO SCH (07:36)
[2017-09-20] MEDS: FUROSEMIDE 40 MG TABLET PO SCH (07:36)
[2017-09-20] MEDS: ZINC SULFATE 220 MG CAPSULE. PO SCH (07:36)
[2017-09-20] MEDS: CARVEDILOL 12.5 MG TABLET PO SCH ×2 (07:36→17:00)
[2017-09-20] MEDS: CLOPIDOGREL BISULFATE 75 MG TABLET PO SCH (07:36)
[2017-09-20] MEDS: LISINOPRIL 5 MG TABLET. PO SCH (07:36)
[2017-09-20] MEDS: ALLOPURINOL 300 MG TABLET. PO SCH (07:36)
[2017-09-20] MEDS: CITALOPRAM 20 MG TABLET. PO SCH (07:37)
[2017-09-20] MEDS: buPROPion XL 150 MG TAB.ER.24H PO SCH (07:37)
[2017-09-20] MEDS: APIXABAN 5 MG TABLET. PO SCH ×2 (07:37→17:52)
[2017-09-20] MEDS: QUEtiapine 25 MG TABLET. PO SCH ×2 (07:37→19:15)
[2017-09-20] MEDS: POTASSIUM CHLORIDE 20 MEQ TABLET.ER. PO SCH (07:37)
[2017-09-20 16:03] VITALS: BP 103/55
--- NOTE | 2017-09-20 17:56 | PN ---
DATE: 09/19/2017 PSYCHIATRIC PROGRESS NOTE This late entry 09/19/2017 covers elements not covered in my initial note of 09/19/2017. SUBJECTIVE: Met with the patient in the evening of 09/19/2017. Overall, the patient is doing a little better somewhat brighter in his affect and interactions. During the individual visit, he talked about the loss of her son and what it means to him very insightful. Oriented to month and year, but somewhat confused, believes he is here for his foot, dressing, and wound care, compliant with medications. REVIEW OF SYSTEMS: Ambulation is impaired, in Broda chair. No CV, , pulmonary, eye system symptoms on review. MENTAL STATUS EXAM: Reasonably oriented. Speech is coherent, has some latency. Abstraction fair, computation is impaired, language function intact, attention span short. Mood and affect still somewhat depressed. IMPRESSION: Major depressive disorder, recurrent, severe. Rest unchanged. PLAN: Continue Wellbutrin XL 150 mg a day, may increase gradually. Rest unchanged from initial note. MAN Tatiana LARSON MD DR: ALEXSANDER/ana maria JOB#: [id number] / [id number]
[2017-09-20] MEDS: ATORVASTATIN CALCIUM 10 MG TABLET. PO SCH (19:15)
[2017-09-20] MEDS: traMADol 50 MG TABLET PO SCH (19:15)
[2017-09-20] MEDS: AMITRIPTYLINE HCL 50 MG TABLET PO SCH (19:15)
[2017-09-20] MEDS: MELATONIN 3 MG TABLET PO PRN (19:16)
--- NOTE | 2017-09-20 22:02 | PDOC ---
Exam Note: Bon Note: Please also refer to the separate dictated note~for this date of service dictated separately.~Patient seen individually. Discussed the patient with Nursing staff reviewed the chart.~Reviewed interim history and current functioning. Reviewed vital signs,~Labs/ Radiology~and current medications noted below. Continue current treatment with the changes noted in the dictated addendum note Assessment: Vital Signs: Vital Signs Date Time Temp Pulse Resp B/P (MAP) Pulse Ox O2 Delivery O2 Flow Rate FiO2 09/20/17 17:00 81 103/55 09/20/17 16:03 97.7 18 97 09/19/17 20:58 Room Air I&O Intake and Output 09/20/17 07:00 Intake Total 1320 ml Balance 1320 ml Intake Oral 1320 ml Labs: Laboratory Tests Test 09/20/17 06:38 09/20/17 07:40 White Blood Count 9.9 x10^3/uL (4.0-11.0) Red Blood Count 4.54 x10^6/uL (4.30-5.70) Hemoglobin 13.9 g/dL (13.0-17.5) Hematocrit 41.0 % (39.0-53.0) Mean Corpuscular Volume 90 fL (79-100) Mean Corpuscular Hemoglobin 31 pg (25-35) Mean Corpuscular Hemoglobin Concent 34 g/dL (31-37) Red Cell Distribution Width 15.2 % (11.5-14.5) H Platelet Count 196 x10^3/uL (140-400) Neutrophils (%) (Auto) 60 % (31-73) Lymphocytes (%) (Auto) 23 % (24-48) L Monocytes (%) (Auto) 7 % (0-9) Eosinophils (%) (Auto) 10 % (0-3) H Basophils (%) (Auto) 1 % (0-3) Neutrophils # (Auto) 5.9 x10^3uL (1.8-7.7) Lymphocytes # (Auto) 2.2 x10^3/uL (1.0-4.8) Monocytes # (Auto) 0.7 x10^3/uL (0.0-1.1) Eosinophils # (Auto) 1.0 x10^3/uL (0.0-0.7) H Basophils # (Auto) 0.1 x10^3/uL (0.0-0.2) Sodium Level 140 mmol/L (136-145) Potassium Level 3.9 mmol/L (3.5-5.1) Chloride Level 103 mmol/L (98-107) Carbon Dioxide Level 29 mmol/L (21-32) Anion Gap 8 (6-14) Blood Urea Nitrogen 21 mg/dL (8-26) Creatinine 0.9 mg/dL (0.7-1.3) Estimated GFR (Cockcroft-Gault) 83.9 BUN/Creatinine Ratio 23 (6-20) H Glucose Level 115 mg/dL (70-99) H Calcium Level 9.5 mg/dL (8.5-10.1) Total Bilirubin 0.4 mg/dL (0.2-1.0) Aspartate Amino Transferase (AST) 19 U/L (15-37) Alanine Aminotransferase (ALT) 26 U/L (16-63) Alkaline Phosphatase 133 U/L (46-116) H Total Protein 7.2 g/dL (6.4-8.2) Albumin 3.0 g/dL (3.4-5.0) L Albumin/Globulin Ratio 0.7 (1.0-1.7) L Glucose (Fingerstick) 137 mg/dL (70-99) H Current Medications: Meds: Current Medications Ciprofloxacin (Cipro) 500 mg 1X ONCE PO ; Start 09/17/17 at 22:15; Stop at 22:30; Status DC Ciprofloxacin (Cipro) 500 mg 1X ONCE PO Last administered on 09/18/17at 00:08; Start 09/17/17 at 23:00; Stop 09/17/17 at 23:01; Status DC Multi-Ingredient Ointment (Analgesic Presto) 1 bob PRN QID PRN TP MUSCLE PAIN; Start 09/17/17 at 22:45 Amitriptyline HCl (Elavil) 50 mg HS PO Last administered on 09/20/17at 19:15; Start 09/18/17 at 21:00 Quetiapine Fumarate (SEROquel) 25 mg BID PO Last administered on 09/20/17at 19: 15; Start 09/18/17 at 09:00 Citalopram Hydrobromide (CeleXA) 20 mg DAILY PO Last administered on 09/20/17 07:37; Start 09/18/17 at 09:00 Melatonin 3 mg PRN QHS PRN PO INSOMNIA Last administered on 09/20/17 19:16; Start 09/17/17 at 23:00 Tramadol HCl (Ultram) 100 mg QHS PO Last administered on 09/20/17 19:15; Start 09/17/17 at 23:00 Acetaminophen (Tylenol) 650 mg PRN Q6HRS PRN PO PAIN / TEMP; Start 09/18/17 at 08:15 Allopurinol (Zyloprim) 300 mg DAILY PO Last administered on 09/20/17 07:36; Start 09/18/17 at 09:00 Apixaban (Eliquis) 5 mg BIDWMEALS PO Last administered on 09/20/17 17:52; Start 09/18/17 at 08:00 Ascorbic Acid (Vitamin C) 500 mg DAILY PO Last administered on 09/20/17 07:36 ; Start 09/18/17 at 09:00 Atorvastatin Calcium (Lipitor) 10 mg QHS PO Last administered on 09/20/17 19: 15; Start 09/18/17 at 21:00 Baclofen (Lioresal) 10 mg PRN Q6HRS PRN PO Epileptic Spasms; Start 09/18/17 at 08:15 Bisacodyl (Dulcolax Supp) 10 mg PRN DAILY PRN RC CONSTIPATION; Start 09/18/17 at 08:15 Clopidogrel Bisulfate (Plavix) 75 mg DAILY PO Last administered on 09/20/17 07 :36; Start 09/18/17 at 09:00 Furosemide (Lasix) 40 mg DAILY PO Last administered on 09/20/17 07:36; Start 09/18/17 at 09:00 Acetaminophen/ Hydrocodone Bitart (Lortab 5/325) 1 tab PRN Q6HRS PRN PO PAIN Last administered on 09/18/17 10:30; Start 09/18/17 at 08:15 Lisinopril (Prinivil) 5 mg DAILY PO Last administered on 09/20/17 07:36; Start 09/18/17 at 09:00 Sodium Biphosphate/ Sodium Phosphate (Fleet Adult) 133 ml PRN DAILY PRN RC CONSTIPATION; Start 09/18/17 at 08:15 Nitroglycerin (Nitrostat) 0.4 mg PRN Q5MIN PRN SL Unstable Angina; Start at 08:15 Nystatin (Nystop) 1 bob PRN BID PRN TP RASH; Start 09/18/17 at 08:15 Polyethylene Glycol (miraLAX) 17 gm DAILY PO Last administered on 09/20/17at 07: 35; Start 09/18/17 at 09:00 Potassium Chloride (Klor-Con) 20 meq DAILY PO Last administered on 09/20/17at 07 :37; Start 09/18/17 at 09:00 Senna/Docusate Sodium (Senna Plus) 2 tab PRN QHS PRN PO CONSTIPATION; Start at 08:15 Carvedilol (Coreg) 25 mg BIDWMEALS PO Last administered on 09/20/17at 07:36; Start 09/18/17 at 09:00 Zinc Sulfate (Orazinc) 220 mg DAILY PO Last administered on 09/20/17at 07:36; Start 09/18/17 at 09:00 Non-Formulary Medication ([prostat] ) 30 ml BIDWMEALS PO ; Start 09/18/17 at 17: 00; Status UNV Bupropion HCl (Wellbutrin Xl) 150 mg DAILY PO Last administered on 09/20/17at 07 :37; Start 09/19/17 at 14:00 Active Scripts Active Reported Furosemide 40 Mg Tablet 40 Mg PO DAILY Clopidogrel (Clopidogrel Bisulfate) 75 Mg Tablet 75 Mg PO DAILY Zinc Sulfate 220 Mg Tablet 220 Mg PO DAILY C-500 (Ascorbic Acid) 500 Mg Tablet 500 Mg PO DAILY Tylenol (Acetaminophen) 325 Mg Tablet 650 Mg PO PRN Q6HRS PRN Tramadol Hcl (Tramadol HCl) 50 Mg Tablet 100 Mg PO QHS Seroquel (Quetiapine Fumarate) 25 Mg Tablet 25 Mg PO BID Senna-Docusate Sodium Tablet (Sennosides/Docusate Sodium) 1 Each Tablet 2 Tab PO PRN QHS PRN [prostat] 30 Ml PO BIDWMEALS Klor-Con M20 (Potassium Chloride) 20 Meq Tab.er.prt 20 Meq PO DAILY Nystop (Nystatin) 60 Gm Powder 1 Bob TP PRN BID PRN [place] 5-325 Tablet (Hydrocodone Bit/Acetaminophen) 1 Each Tablet 1 Tab PO PRN Q6HRS PRN Nitrostat (Nitroglycerin) 0.4 Mg Tab.subl 0.4 Mg SL PRN Q5MIN PRN Maalox Advanced Suspension (Mag Hydrox/Aluminum Hyd/Simeth) 355 Ml Oral.susp 30 Ml PO PRN QID PRN Multivitamins With Minerals (Multivitamin With Minerals) 1 Each Tablet 1 Tab PO DAILY Miralax (Polyethylene Glycol 3350) 17 Gm Powd.pack 17 Gm PO DAILY Milk Of Magnesia (Magnesium Hydroxide) 2,400 Mg/10 Ml Oral.susp 2,400 Mg PO PRN QID PRN Melatonin 3 Mg Tablet 3 Mg PO PRN QHS PRN Lisinopril 5 Mg Tablet 5 Mg PO DAILY Lexapro (Escitalopram Oxalate) 10 Mg Tablet 10 Mg PO DAILY Fleet Enema (Na Phos,M-B/Na Phos,Di-Ba) 133 Ml Enema 133 Ml RC PRN DAILY PRN Eliquis (Apixaban) 5 Mg Tablet 5 Mg PO BIDWMEALS Coreg (Carvedilol) 25 Mg Tablet 25 Mg PO BIDWMEALS Bisacodyl 10 Mg Supp.rect 10 Mg RC PRN DAILY PRN Baclofen 10 Mg Tablet 10 Mg PO PRN Q6HRS PRN Atorvastatin Calcium 10 Mg Tablet 10 Mg PO QHS Amitriptyline Hcl 50 Mg Tablet 50 Mg PO HS Allopurinol 300 Mg Tablet 300 Mg PO DAILY I have reviewed the current psychotropics carefully including drug interactions. Risk benefit ratio favors no change other than as noted in my dictated progress note. Diagnosis: Problems: (1) Anxiety disorder (2) Major depressive disorder, recurrent episode (3) Mild cognitive impairment MARILY LARSON MD Sep 20, 2017 22:02
[2017-09-21] MEDS: HYDROcodone/APAP 5/325MG 1 TAB TABLET PO PRN ×2 (01:31→17:42)
[2017-09-21 05:50] VITALS: BP 111/54
[2017-09-21] MEDS: CARVEDILOL 12.5 MG TABLET PO SCH ×2 (07:58→17:00)
[2017-09-21] MEDS: CLOPIDOGREL BISULFATE 75 MG TABLET PO SCH (07:59)
[2017-09-21] MEDS: ZINC SULFATE 220 MG CAPSULE. PO SCH (07:59)
[2017-09-21] MEDS: POTASSIUM CHLORIDE 20 MEQ TABLET.ER. PO SCH (07:59)
[2017-09-21] MEDS: ASCORBIC ACID 500 MG TABLET PO SCH (07:59)
[2017-09-21] MEDS: QUEtiapine 25 MG TABLET. PO SCH ×2 (07:59→20:16)
[2017-09-21] MEDS: LISINOPRIL 5 MG TABLET. PO SCH (08:00)
[2017-09-21] MEDS: POLYETHYLENE GLYCOL 3350 17 GM PACKET. PO SCH (08:00)
[2017-09-21] MEDS: APIXABAN 5 MG TABLET. PO SCH ×2 (08:00→17:29)
[2017-09-21] MEDS: ALLOPURINOL 300 MG TABLET. PO SCH (08:00)
[2017-09-21] MEDS: CITALOPRAM 20 MG TABLET. PO SCH (08:00)
[2017-09-21] MEDS: buPROPion XL 150 MG TAB.ER.24H PO SCH (08:00)
[2017-09-21] MEDS: FUROSEMIDE 40 MG TABLET PO SCH (08:00)
[2017-09-21 16:08] VITALS: BP 98/64
[2017-09-21] MEDS: ATORVASTATIN CALCIUM 10 MG TABLET. PO SCH (20:16)
[2017-09-21] MEDS: AMITRIPTYLINE HCL 50 MG TABLET PO SCH (20:16)
[2017-09-21] MEDS: traMADol 50 MG TABLET PO SCH (20:25)
--- NOTE | 2017-09-21 21:00 | PDOC ---
Exam Note: Bon Note: Please also refer to the separate dictated note~for this date of service dictated separately.~Patient seen individually. Discussed the patient with Nursing staff reviewed the chart.~Reviewed interim history and current functioning. Reviewed vital signs,~Labs/ Radiology~and current medications noted below. Continue current treatment with the changes noted in the dictated addendum note Assessment: Vital Signs: Vital Signs Date Time Temp Pulse Resp B/P (MAP) Pulse Ox O2 Delivery O2 Flow Rate FiO2 09/21/17 18:51 18 92 Room Air 09/21/17 17:00 76 98/64 09/21/17 16:08 97.0 I&O Intake and Output 09/21/17 07:00 Intake Total 1560 ml Output Total 800 ml Balance 760 ml Intake Oral 1560 ml Output Urine Total 800 ml # Voids 1 Labs: Laboratory Tests Test 09/21/17 07:13 Glucose (Fingerstick) 101 mg/dL (70-99) H Current Medications: Meds: Current Medications Ciprofloxacin (Cipro) 500 mg 1X ONCE PO ; Start 09/17/17 at 22:15; Stop at 22:30; Status DC Ciprofloxacin (Cipro) 500 mg 1X ONCE PO Last administered on 09/18/17at 00:08; Start 09/17/17 at 23:00; Stop 09/17/17 at 23:01; Status DC Multi-Ingredient Ointment (Analgesic [place]) 1 bob PRN QID PRN TP MUSCLE PAIN; Start 09/17/17 at 22:45 Amitriptyline HCl (Elavil) 50 mg HS PO Last administered on 09/21/17at 20:16; Start 09/18/17 at 21:00 Quetiapine Fumarate (SEROquel) 25 mg BID PO Last administered on 09/21/17at 20: 16; Start 09/18/17 at 09:00 Citalopram Hydrobromide (CeleXA) 20 mg DAILY PO Last administered on 09/21/17at 08:00; Start 09/18/17 at 09:00 Melatonin 3 mg PRN QHS PRN PO INSOMNIA Last administered on 09/20/17at 19:16; Start 09/17/17 at 23:00 Tramadol HCl (Ultram) 100 mg QHS PO Last administered on 09/21/17at 20:25; Start 09/17/17 at 23:00 Acetaminophen (Tylenol) 650 mg PRN Q6HRS PRN PO PAIN / TEMP; Start 09/18/17 at 08:15 Allopurinol (Zyloprim) 300 mg DAILY PO Last administered on 09/21/17 08:00; Start 09/18/17 at 09:00 Apixaban (Eliquis) 5 mg BIDWMEALS PO Last administered on 09/21/17 17:29; Start 09/18/17 at 08:00 Ascorbic Acid (Vitamin C) 500 mg DAILY PO Last administered on 09/21/17 07:59 ; Start 09/18/17 at 09:00 Atorvastatin Calcium (Lipitor) 10 mg QHS PO Last administered on 09/21/17 20: 16; Start 09/18/17 at 21:00 Baclofen (Lioresal) 10 mg PRN Q6HRS PRN PO Epileptic Spasms; Start 09/18/17 at 08:15 Bisacodyl (Dulcolax Supp) 10 mg PRN DAILY PRN RC CONSTIPATION; Start 09/18/17 at 08:15 Clopidogrel Bisulfate (Plavix) 75 mg DAILY PO Last administered on 09/21/17 07 :59; Start 09/18/17 at 09:00 Furosemide (Lasix) 40 mg DAILY PO Last administered on 09/21/17 08:00; Start 09/18/17 at 09:00 Acetaminophen/ Hydrocodone Bitart (Lortab 5/325) 1 tab PRN Q6HRS PRN PO PAIN Last administered on 09/21/17 17:42; Start 09/18/17 at 08:15 Lisinopril (Prinivil) 5 mg DAILY PO Last administered on 09/21/17 08:00; Start 09/18/17 at 09:00 Sodium Biphosphate/ Sodium Phosphate (Fleet Adult) 133 ml PRN DAILY PRN RC CONSTIPATION; Start 09/18/17 at 08:15 Nitroglycerin (Nitrostat) 0.4 mg PRN Q5MIN PRN SL Unstable Angina; Start at 08:15 Nystatin (Nystop) 1 bob PRN BID PRN TP RASH; Start 09/18/17 at 08:15 Polyethylene Glycol (miraLAX) 17 gm DAILY PO Last administered on 09/21/17 08: 00; Start 09/18/17 at 09:00 Potassium Chloride (Klor-Con) 20 meq DAILY PO Last administered on 09/21/17at 07 :59; Start 09/18/17 at 09:00 Senna/Docusate Sodium (Senna Plus) 2 tab PRN QHS PRN PO CONSTIPATION; Start at 08:15 Carvedilol (Coreg) 25 mg BIDWMEALS PO Last administered on 09/21/17at 07:58; Start 09/18/17 at 09:00 Zinc Sulfate (Orazinc) 220 mg DAILY PO Last administered on 09/21/17 07:59; Start 09/18/17 at 09:00 Non-Formulary Medication ([prostat] ) 30 ml BIDWMEALS PO ; Start 09/18/17 at 17: 00; Status UNV Bupropion HCl (Wellbutrin Xl) 150 mg DAILY PO Last administered on 09/21/17at 08 :00; Start 09/19/17 at 14:00 Active Scripts Active Reported Furosemide 40 Mg Tablet 40 Mg PO DAILY Clopidogrel (Clopidogrel Bisulfate) 75 Mg Tablet 75 Mg PO DAILY Zinc Sulfate 220 Mg Tablet 220 Mg PO DAILY C-500 (Ascorbic Acid) 500 Mg Tablet 500 Mg PO DAILY Tylenol (Acetaminophen) 325 Mg Tablet 650 Mg PO PRN Q6HRS PRN Tramadol Hcl (Tramadol HCl) 50 Mg Tablet 100 Mg PO QHS Seroquel (Quetiapine Fumarate) 25 Mg Tablet 25 Mg PO BID Senna-Docusate Sodium Tablet (Sennosides/Docusate Sodium) 1 Each Tablet 2 Tab PO PRN QHS PRN [prostat] 30 Ml PO BIDWMEALS Klor-Con M20 (Potassium Chloride) 20 Meq Tab.er.prt 20 Meq PO DAILY Nystop (Nystatin) 60 Gm Powder 1 Bob TP PRN BID PRN [place] 5-325 Tablet (Hydrocodone Bit/Acetaminophen) 1 Each Tablet 1 Tab PO PRN Q6HRS PRN Nitrostat (Nitroglycerin) 0.4 Mg Tab.subl 0.4 Mg SL PRN Q5MIN PRN Maalox Advanced Suspension (Mag Hydrox/Aluminum Hyd/Simeth) 355 Ml Oral.susp 30 Ml PO PRN QID PRN Multivitamins With Minerals (Multivitamin With Minerals) 1 Each Tablet 1 Tab PO DAILY Miralax (Polyethylene Glycol 3350) 17 Gm Powd.pack 17 Gm PO DAILY Milk Of Magnesia (Magnesium Hydroxide) 2,400 Mg/10 Ml Oral.susp 2,400 Mg PO PRN QID PRN Melatonin 3 Mg Tablet 3 Mg PO PRN QHS PRN Lisinopril 5 Mg Tablet 5 Mg PO DAILY Lexapro (Escitalopram Oxalate) 10 Mg Tablet 10 Mg PO DAILY Fleet Enema (Na Phos,M-B/Na Phos,Di-Ba) 133 Ml Enema 133 Ml RC PRN DAILY PRN Eliquis (Apixaban) 5 Mg Tablet 5 Mg PO BIDWMEALS Coreg (Carvedilol) 25 Mg Tablet 25 Mg PO BIDWMEALS Bisacodyl 10 Mg Supp.rect 10 Mg RC PRN DAILY PRN Baclofen 10 Mg Tablet 10 Mg PO PRN Q6HRS PRN Atorvastatin Calcium 10 Mg Tablet 10 Mg PO QHS Amitriptyline Hcl 50 Mg Tablet 50 Mg PO HS Allopurinol 300 Mg Tablet 300 Mg PO DAILY I have reviewed the current psychotropics carefully including drug interactions. Risk benefit ratio favors no change other than as noted in my dictated progress note. Diagnosis: Problems: (1) Anxiety disorder (2) Major depressive disorder, recurrent episode (3) Mild cognitive impairment MARILY LARSON MD Sep 21, 2017 21:00
[2017-09-22 06:02] VITALS: BP 97/56
[2017-09-22] MEDS: ASCORBIC ACID 500 MG TABLET PO SCH (08:21)
[2017-09-22] MEDS: POLYETHYLENE GLYCOL 3350 17 GM PACKET. PO SCH (08:21)
[2017-09-22] MEDS: CLOPIDOGREL BISULFATE 75 MG TABLET PO SCH (08:21)
[2017-09-22] MEDS: QUEtiapine 25 MG TABLET. PO SCH ×2 (08:22→19:49)
[2017-09-22] MEDS: buPROPion XL 150 MG TAB.ER.24H PO SCH (08:22)
[2017-09-22] MEDS: APIXABAN 5 MG TABLET. PO SCH ×2 (08:22→17:23)
[2017-09-22] MEDS: CITALOPRAM 20 MG TABLET. PO SCH (08:22)
[2017-09-22] MEDS: POTASSIUM CHLORIDE 20 MEQ TABLET.ER. PO SCH (08:22)
[2017-09-22] MEDS: ALLOPURINOL 300 MG TABLET. PO SCH (08:22)
[2017-09-22] MEDS: ZINC SULFATE 220 MG CAPSULE. PO SCH (08:23)
[2017-09-22] MEDS: FUROSEMIDE 40 MG TABLET PO SCH (08:23)
[2017-09-22] MEDS: CARVEDILOL 12.5 MG TABLET PO SCH ×2 (08:25→17:23)
[2017-09-22] MEDS: LISINOPRIL 5 MG TABLET. PO SCH (08:26)
[2017-09-22] MEDS: HYDROcodone/APAP 5/325MG 1 TAB TABLET PO PRN (08:28)
[2017-09-22] MEDS: MAGNESIUM HYDROXIDE 2,400 MG/30 ML ORAL.SUSP. PO PRN (14:06)
[2017-09-22 16:07] VITALS: BP 106/70
[2017-09-22] MEDS: traMADol 50 MG TABLET PO SCH (19:49)
[2017-09-22] MEDS: ATORVASTATIN CALCIUM 10 MG TABLET. PO SCH (19:49)
[2017-09-22] MEDS: traZODone 100 MG TABLET. PO SCH (19:49)
[2017-09-22] MEDS: AMITRIPTYLINE HCL 50 MG TABLET PO SCH (19:49)
--- NOTE | 2017-09-22 20:57 | PDOC ---
Exam Note: Bon Note: Please also refer to the separate dictated note~for this date of service dictated separately.~Patient seen individually. Discussed the patient with Nursing staff reviewed the chart.~Reviewed interim history and current functioning. Reviewed vital signs,~Labs/ Radiology~and current medications noted below. Continue current treatment with the changes noted in the dictated addendum note Assessment: Vital Signs: Vital Signs Date Time Temp Pulse Resp B/P (MAP) Pulse Ox O2 Delivery O2 Flow Rate FiO2 09/22/17 19:49 92 09/22/17 17:23 70 106/70 09/22/17 16:07 97.9 18 09/22/17 09:40 Room Air I&O Intake and Output 09/22/17 07:00 Intake Total 1440 ml Balance 1440 ml Intake Oral 1440 ml Labs: Laboratory Tests Test 09/22/17 07:21 Glucose (Fingerstick) 116 mg/dL (70-99) H Current Medications: Meds: Current Medications Ciprofloxacin (Cipro) 500 mg 1X ONCE PO ; Start 09/17/17 at 22:15; Stop at 22:30; Status DC Ciprofloxacin (Cipro) 500 mg 1X ONCE PO Last administered on 09/18/17at 00:08; Start 09/17/17 at 23:00; Stop 09/17/17 at 23:01; Status DC Multi-Ingredient Ointment (Analgesic [place]) 1 bob PRN QID PRN TP MUSCLE PAIN; Start 09/17/17 at 22:45 Amitriptyline HCl (Elavil) 50 mg HS PO Last administered on 09/22/17 19:49; Start 09/18/17 at 21:00 Quetiapine Fumarate (SEROquel) 25 mg BID PO Last administered on 09/22/17 19: 49; Start 09/18/17 at 09:00 Citalopram Hydrobromide (CeleXA) 20 mg DAILY PO Last administered on 09/22/17at 08:22; Start 09/18/17 at 09:00 Melatonin 3 mg PRN QHS PRN PO INSOMNIA Last administered on 09/20/17 19:16; Start 09/17/17 at 23:00 Tramadol HCl (Ultram) 100 mg QHS PO Last administered on 09/22/17at 19:49; Start 09/17/17 at 23:00 Acetaminophen (Tylenol) 650 mg PRN Q6HRS PRN PO PAIN / TEMP; Start 09/18/17 at 08:15 Allopurinol (Zyloprim) 300 mg DAILY PO Last administered on 09/22/17 08:22; Start 09/18/17 at 09:00 Apixaban (Eliquis) 5 mg BIDWMEALS PO Last administered on 09/22/17 17:23; Start 09/18/17 at 08:00 Ascorbic Acid (Vitamin C) 500 mg DAILY PO Last administered on 09/22/17 08:21 ; Start 09/18/17 at 09:00 Atorvastatin Calcium (Lipitor) 10 mg QHS PO Last administered on 09/22/17 19: 49; Start 09/18/17 at 21:00 Baclofen (Lioresal) 10 mg PRN Q6HRS PRN PO Epileptic Spasms; Start 09/18/17 at 08:15 Bisacodyl (Dulcolax Supp) 10 mg PRN DAILY PRN RC CONSTIPATION; Start 09/18/17 at 08:15 Clopidogrel Bisulfate (Plavix) 75 mg DAILY PO Last administered on 09/22/17 08 :21; Start 09/18/17 at 09:00 Furosemide (Lasix) 40 mg DAILY PO Last administered on 09/22/17 08:23; Start 09/18/17 at 09:00 Acetaminophen/ Hydrocodone Bitart (Lortab 5/325) 1 tab PRN Q6HRS PRN PO PAIN Last administered on 09/22/17 08:28; Start 09/18/17 at 08:15 Lisinopril (Prinivil) 5 mg DAILY PO Last administered on 09/22/17 08:26; Start 09/18/17 at 09:00 Sodium Biphosphate/ Sodium Phosphate (Fleet Adult) 133 ml PRN DAILY PRN RC CONSTIPATION; Start 09/18/17 at 08:15 Nitroglycerin (Nitrostat) 0.4 mg PRN Q5MIN PRN SL Unstable Angina; Start at 08:15 Nystatin (Nystop) 1 bob PRN BID PRN TP RASH; Start 09/18/17 at 08:15 Polyethylene Glycol (miraLAX) 17 gm DAILY PO Last administered on 3/26/18at 08: 21; Start 09/18/17 at 09:00 Potassium Chloride (Klor-Con) 20 meq DAILY PO Last administered on 09/22/17at 08 :22; Start 09/18/17 at 09:00 Senna/Docusate Sodium (Senna Plus) 2 tab PRN QHS PRN PO CONSTIPATION; Start at 08:15 Carvedilol (Coreg) 25 mg BIDWMEALS PO Last administered on 09/22/17at 17:23; Start 09/18/17 at 09:00 Zinc Sulfate (Orazinc) 220 mg DAILY PO Last administered on 09/22/17 08:23; Start 09/18/17 at 09:00 Non-Formulary Medication ([prostat] ) 30 ml BIDWMEALS PO ; Start 09/18/17 at 17: 00; Status UNV Bupropion HCl (Wellbutrin Xl) 150 mg DAILY PO Last administered on 09/22/17at 08 :22; Start 09/19/17 at 14:00; Stop 09/22/17 at 18:55; Status DC Magnesium Hydroxide (Milk Of Magnesia) 2,400 mg PRN DAILY PRN PO CONSTIPATION Last administered on 09/22/17at 14:06; Start 09/22/17 at 13:00 Multivitamins/ Minerals ([place]) 1 tab DAILY PO ; Start 09/23/17 at 09:00 Bupropion HCl (Wellbutrin Xl) 300 mg DAILY PO ; Start 09/23/17 at 09:00 Trazodone HCl (Desyrel) 100 mg QHS PO Last administered on 09/22/17at 19:49; Start 09/22/17 at 21:00 Active Scripts Active Reported Furosemide 40 Mg Tablet 40 Mg PO DAILY Clopidogrel (Clopidogrel Bisulfate) 75 Mg Tablet 75 Mg PO DAILY Zinc Sulfate 220 Mg Tablet 220 Mg PO DAILY C-500 (Ascorbic Acid) 500 Mg Tablet 500 Mg PO DAILY Tylenol (Acetaminophen) 325 Mg Tablet 650 Mg PO PRN Q6HRS PRN Tramadol Hcl (Tramadol HCl) 50 Mg Tablet 100 Mg PO QHS Seroquel (Quetiapine Fumarate) 25 Mg Tablet 25 Mg PO BID Senna-Docusate Sodium Tablet (Sennosides/Docusate Sodium) 1 Each Tablet 2 Tab PO PRN QHS PRN [prostat] 30 Ml PO BIDWMEALS Klor-Con M20 (Potassium Chloride) 20 Meq Tab.er.prt 20 Meq PO DAILY Nystop (Nystatin) 60 Gm Powder 1 Bob TP PRN BID PRN [place] 5-325 Tablet (Hydrocodone Bit/Acetaminophen) 1 Each Tablet 1 Tab PO PRN Q6HRS PRN Nitrostat (Nitroglycerin) 0.4 Mg Tab.subl 0.4 Mg SL PRN Q5MIN PRN Maalox Advanced Suspension (Mag Hydrox/Aluminum Hyd/Simeth) 355 Ml Oral.susp 30 Ml PO PRN QID PRN Multivitamins With Minerals (Multivitamin With Minerals) 1 Each Tablet 1 Tab PO DAILY Miralax (Polyethylene Glycol 3350) 17 Gm Powd.pack 17 Gm PO DAILY Milk Of Magnesia (Magnesium Hydroxide) 2,400 Mg/10 Ml Oral.susp 2,400 Mg PO PRN QID PRN Melatonin 3 Mg Tablet 3 Mg PO PRN QHS PRN Lisinopril 5 Mg Tablet 5 Mg PO DAILY Lexapro (Escitalopram Oxalate) 10 Mg Tablet 10 Mg PO DAILY Fleet Enema (Na Phos,M-B/Na Phos,Di-Ba) 133 Ml Enema 133 Ml RC PRN DAILY PRN Eliquis (Apixaban) 5 Mg Tablet 5 Mg PO BIDWMEALS Coreg (Carvedilol) 25 Mg Tablet 25 Mg PO BIDWMEALS Bisacodyl 10 Mg Supp.rect 10 Mg RC PRN DAILY PRN Baclofen 10 Mg Tablet 10 Mg PO PRN Q6HRS PRN Atorvastatin Calcium 10 Mg Tablet 10 Mg PO QHS Amitriptyline Hcl 50 Mg Tablet 50 Mg PO HS Allopurinol 300 Mg Tablet 300 Mg PO DAILY I have reviewed the current psychotropics carefully including drug interactions. Risk benefit ratio favors no change other than as noted in my dictated progress note. Diagnosis: Problems: (1) Anxiety disorder (2) Major depressive disorder, recurrent episode (3) Mild cognitive impairment MARILY LARSON MD Sep 22, 2017 20:57
--- NOTE | 2017-09-22 22:45 | PN ---
DATE: 09/20/2017 This is a late entry for 09/20/2017 and covers the elements not covered in my initial note of 09/20/2017. SUBJECTIVE: I met with the patient in the evening of 09/20/2017. The patient slept 4-1/4 hours previous evening and does have short term memory deficits, remains depressed, but more interactive, verbal about the loss of his son. Gets somewhat delusional at night per nursing report. REVIEW OF SYSTEMS: Ambulation impaired. No CV, , pulmonary, eye system symptoms on review. MENTAL STATUS EXAM: Oriented to himself and situation. Speech has some latency, coherent. He is otherwise pleasant, interactive, abstraction fair, computation impaired, language function intact, attention span short. Mood and affect remains depressed, but improving. LABORATORY DATA: Reviewed. IMPRESSION: Major depressive disorder with possible psychotic features; cognitive disorder, unspecified. Rest unchanged. PLAN: Wellbutrin-XL start at 150 mg a day. We will increase gradually, remains on amitriptyline 50 mg at bedtime, Seroquel 25 mg b.i.d., melatonin p.r.n., adjust as indicated clinically. MAN Ttaiana LARSON MD DR: ALEXSANDER/ana maria JOB#: [id number] / [id number]
--- NOTE | 2017-09-22 23:32 | PN ---
DATE: 09/21/2017 This is a late entry for 09/21/2017 covers elements not covered in my initial note of 09/21/2017. SUBJECTIVE: I met with the patient in the evening of 09/21/2017. Overall, per nursing report, the patient is somewhat sexually inappropriate with female nursing staff. He has been talking about his mother dying, wanting to make a telephone call to a family member. In fact, as I entered the patient's room to visit with him, he was on the telephone with his ex- and wanted me to talk to his ex-. At the patient's request, I did talk to her and she wanted to know about how he was doing in his treatment and we addressed this and she will call the social service staff on 09/22/2017 for further information. REVIEW OF SYSTEMS: Ambulation impaired. No CV, , pulmonary, eye system symptoms on review. MENTAL STATUS EXAM: Reasonably oriented. Speech is coherent, abstraction fair, computation impaired, language function intact, attention span short. Mood and affect remains somewhat withdrawn, but less so than before. No active suicidal ideation. LABORATORY DATA: Reviewed. IMPRESSION: Major depressive disorder, recurrent, severe, in partial remission; anxiety disorder, unspecified; cognitive disorder, unspecified. PLAN: Continue current psychotropics, Wellbutrin-XL 150 mg a day. We will need to increase gradually. Rest unchanged from initial note. MAN Tatiana LARSON MD DR: ALEXSANDER/ana maria JOB#: [id number] / [id number]
[2017-09-23] MEDS: ALLOPURINOL 300 MG TABLET. PO SCH (05:42)
[2017-09-23 06:03] VITALS: BP 101/62
[2017-09-23] MEDS: HYDROcodone/APAP 5/325MG 1 TAB TABLET PO PRN ×2 (06:13→12:04)
[2017-09-23] MEDS: CLOPIDOGREL BISULFATE 75 MG TABLET PO SCH (08:18)
[2017-09-23] MEDS: POLYETHYLENE GLYCOL 3350 17 GM PACKET. PO SCH (08:18)
[2017-09-23] MEDS: QUEtiapine 25 MG TABLET. PO SCH ×2 (08:18→20:24)
[2017-09-23] MEDS: CITALOPRAM 20 MG TABLET. PO SCH (08:18)
[2017-09-23] MEDS: ZINC SULFATE 220 MG CAPSULE. PO SCH (08:19)
[2017-09-23] MEDS: LISINOPRIL 5 MG TABLET. PO SCH (08:19)
[2017-09-23] MEDS: APIXABAN 5 MG TABLET. PO SCH ×2 (08:19→16:37)
[2017-09-23] MEDS: FUROSEMIDE 40 MG TABLET PO SCH (08:19)
[2017-09-23] MEDS: POTASSIUM CHLORIDE 20 MEQ TABLET.ER. PO SCH (08:19)
[2017-09-23] MEDS: CARVEDILOL 12.5 MG TABLET PO SCH ×2 (08:19→16:53)
[2017-09-23] MEDS: ASCORBIC ACID 500 MG TABLET PO SCH (08:20)
[2017-09-23] MEDS: buPROPion XL 300 MG TAB.ER.24H. PO SCH (08:21)
[2017-09-23] MEDS: MULTIVITAMIN I-VITE TABLET. PO SCH (08:21)
[2017-09-23 16:08] VITALS: BP 91/60
[2017-09-23 16:52] VITALS: BP 108/68
[2017-09-23] MEDS: traZODone 100 MG TABLET. PO SCH (20:24)
[2017-09-23] MEDS: AMITRIPTYLINE HCL 50 MG TABLET PO SCH (20:24)
[2017-09-23] MEDS: ATORVASTATIN CALCIUM 10 MG TABLET. PO SCH (20:24)
[2017-09-23] MEDS: traMADol 50 MG TABLET PO SCH (20:26)
--- NOTE | 2017-09-23 20:50 | PDOC ---
Exam Note: Bon Note: Please also refer to the separate dictated note~for this date of service dictated separately.~Patient seen individually. Discussed the patient with Nursing staff reviewed the chart.~Reviewed interim history and current functioning. Reviewed vital signs,~Labs/ Radiology~and current medications noted below. Continue current treatment with the changes noted in the dictated addendum note Assessment: Vital Signs: Vital Signs Date Time Temp Pulse Resp B/P (MAP) Pulse Ox O2 Delivery O2 Flow Rate FiO2 09/23/17 20:26 18 98 Room Air 09/23/17 16:53 65 108/68 09/23/17 16:08 97.9 I&O Intake and Output 09/23/17 07:00 Intake Total 1080 ml Balance 1080 ml Intake Oral 1080 ml Labs: Laboratory Tests Test 09/23/17 07:12 Glucose (Fingerstick) 94 mg/dL (70-99) Current Medications: Meds: Current Medications Ciprofloxacin (Cipro) 500 mg 1X ONCE PO ; Start 09/17/17 at 22:15; Stop at 22:30; Status DC Ciprofloxacin (Cipro) 500 mg 1X ONCE PO Last administered on 09/18/17at 00:08; Start 09/17/17 at 23:00; Stop 09/17/17 at 23:01; Status DC Multi-Ingredient Ointment (Analgesic [place]) 1 bob PRN QID PRN TP MUSCLE PAIN; Start 09/17/17 at 22:45 Amitriptyline HCl (Elavil) 50 mg HS PO Last administered on 09/23/17at 20:24; Start 09/18/17 at 21:00 Quetiapine Fumarate (SEROquel) 25 mg BID PO Last administered on 09/23/17at 20: 24; Start 09/18/17 at 09:00 Citalopram Hydrobromide (CeleXA) 20 mg DAILY PO Last administered on 09/23/17at 08:18; Start 09/18/17 at 09:00 Melatonin 3 mg PRN QHS PRN PO INSOMNIA Last administered on 09/20/17at 19:16; Start 09/17/17 at 23:00 Tramadol HCl (Ultram) 100 mg QHS PO Last administered on 09/23/17at 20:26; Start 09/17/17 at 23:00 Acetaminophen (Tylenol) 650 mg PRN Q6HRS PRN PO PAIN / TEMP; Start 09/18/17 at 08:15 Allopurinol (Zyloprim) 300 mg DAILY PO Last administered on 09/23/17at 05:42; Start 09/18/17 at 09:00 Apixaban (Eliquis) 5 mg BIDWMEALS PO Last administered on 09/23/17 16:37; Start 09/18/17 at 08:00 Ascorbic Acid (Vitamin C) 500 mg DAILY PO Last administered on 09/23/17 08:20 ; Start 09/18/17 at 09:00 Atorvastatin Calcium (Lipitor) 10 mg QHS PO Last administered on 09/23/17at 20: 24; Start 09/18/17 at 21:00 Baclofen (Lioresal) 10 mg PRN Q6HRS PRN PO Epileptic Spasms; Start 09/18/17 at 08:15 Bisacodyl (Dulcolax Supp) 10 mg PRN DAILY PRN RC CONSTIPATION; Start 09/18/17 at 08:15 Clopidogrel Bisulfate (Plavix) 75 mg DAILY PO Last administered on 09/23/17at 08 :18; Start 09/18/17 at 09:00 Furosemide (Lasix) 40 mg DAILY PO Last administered on 09/23/17 08:19; Start 09/18/17 at 09:00 Acetaminophen/ Hydrocodone Bitart (Lortab 5/325) 1 tab PRN Q6HRS PRN PO PAIN Last administered on 09/23/17at 12:04; Start 09/18/17 at 08:15 Lisinopril (Prinivil) 5 mg DAILY PO Last administered on 09/23/17 08:19; Start 09/18/17 at 09:00 Sodium Biphosphate/ Sodium Phosphate (Fleet Adult) 133 ml PRN DAILY PRN RC CONSTIPATION; Start 09/18/17 at 08:15 Nitroglycerin (Nitrostat) 0.4 mg PRN Q5MIN PRN SL Unstable Angina; Start at 08:15 Nystatin (Nystop) 1 bob PRN BID PRN TP RASH; Start 09/18/17 at 08:15 Polyethylene Glycol (miraLAX) 17 gm DAILY PO Last administered on 09/23/17at 08: 18; Start 09/18/17 at 09:00 Potassium Chloride (Klor-Con) 20 meq DAILY PO Last administered on 09/23/17 08 :19; Start 09/18/17 at 09:00 Senna/Docusate Sodium (Senna Plus) 2 tab PRN QHS PRN PO CONSTIPATION; Start at 08:15 Carvedilol (Coreg) 25 mg BIDWMEALS PO Last administered on 09/23/17at 16:53; Start 09/18/17 at 09:00 Zinc Sulfate (Orazinc) 220 mg DAILY PO Last administered on 09/23/17 08:19; Start 09/18/17 at 09:00 Non-Formulary Medication ([prostat] ) 30 ml BIDWMEALS PO ; Start 09/18/17 at 17: 00; Status UNV Bupropion HCl (Wellbutrin Xl) 150 mg DAILY PO Last administered on 09/22/17at 08 :22; Start 09/19/17 at 14:00; Stop 09/22/17 at 18:55; Status DC Magnesium Hydroxide (Milk Of Magnesia) 2,400 mg PRN DAILY PRN PO CONSTIPATION Last administered on 09/22/17at 14:06; Start 09/22/17 at 13:00 Multivitamins/ Minerals ([place]) 1 tab DAILY PO Last administered on 09/23/17 08:21; Start 09/23/17 at 09:00 Bupropion HCl (Wellbutrin Xl) 300 mg DAILY PO Last administered on 09/23/17at 08 :21; Start 09/23/17 at 09:00; Stop 09/28/17 at 08:59 Trazodone HCl (Desyrel) 100 mg QHS PO Last administered on 09/23/17at 20:24; Start 09/22/17 at 21:00 Bupropion HCl (Wellbutrin Xl) 450 mg DAILY PO ; Start 09/28/17 at 09:00 Active Scripts Active Reported Furosemide 40 Mg Tablet 40 Mg PO DAILY Clopidogrel (Clopidogrel Bisulfate) 75 Mg Tablet 75 Mg PO DAILY Zinc Sulfate 220 Mg Tablet 220 Mg PO DAILY C-500 (Ascorbic Acid) 500 Mg Tablet 500 Mg PO DAILY Tylenol (Acetaminophen) 325 Mg Tablet 650 Mg PO PRN Q6HRS PRN Tramadol Hcl (Tramadol HCl) 50 Mg Tablet 100 Mg PO QHS Seroquel (Quetiapine Fumarate) 25 Mg Tablet 25 Mg PO BID Senna-Docusate Sodium Tablet (Sennosides/Docusate Sodium) 1 Each Tablet 2 Tab PO PRN QHS PRN [prostat] 30 Ml PO BIDWMEALS Klor-Con M20 (Potassium Chloride) 20 Meq Tab.er.prt 20 Meq PO DAILY Nystop (Nystatin) 60 Gm Powder 1 Bob TP PRN BID PRN [place] 5-325 Tablet (Hydrocodone Bit/Acetaminophen) 1 Each Tablet 1 Tab PO PRN Q6HRS PRN Nitrostat (Nitroglycerin) 0.4 Mg Tab.subl 0.4 Mg SL PRN Q5MIN PRN Maalox Advanced Suspension (Mag Hydrox/Aluminum Hyd/Simeth) 355 Ml Oral.susp 30 Ml PO PRN QID PRN Multivitamins With Minerals (Multivitamin With Minerals) 1 Each Tablet 1 Tab PO DAILY Miralax (Polyethylene Glycol 3350) 17 Gm Powd.pack 17 Gm PO DAILY Milk Of Magnesia (Magnesium Hydroxide) 2,400 Mg/10 Ml Oral.susp 2,400 Mg PO PRN QID PRN Melatonin 3 Mg Tablet 3 Mg PO PRN QHS PRN Lisinopril 5 Mg Tablet 5 Mg PO DAILY Lexapro (Escitalopram Oxalate) 10 Mg Tablet 10 Mg PO DAILY Fleet Enema (Na Phos,M-B/Na Phos,Di-Ba) 133 Ml Enema 133 Ml RC PRN DAILY PRN Eliquis (Apixaban) 5 Mg Tablet 5 Mg PO BIDWMEALS Coreg (Carvedilol) 25 Mg Tablet 25 Mg PO BIDWMEALS Bisacodyl 10 Mg Supp.rect 10 Mg RC PRN DAILY PRN Baclofen 10 Mg Tablet 10 Mg PO PRN Q6HRS PRN Atorvastatin Calcium 10 Mg Tablet 10 Mg PO QHS Amitriptyline Hcl 50 Mg Tablet 50 Mg PO HS Allopurinol 300 Mg Tablet 300 Mg PO DAILY I have reviewed the current psychotropics carefully including drug interactions. Risk benefit ratio favors no change other than as noted in my dictated progress note. Diagnosis: Problems: (1) Anxiety disorder (2) Major depressive disorder, recurrent episode (3) Mild cognitive impairment MARILY LARSON MD Sep 23, 2017 20:50
--- NOTE | 2017-09-24 02:21 | PN ---
DATE: 09/22/2017 PSYCHIATRIC PROGRESS NOTE This late entry 09/22/2017 covers elements not covered in my initial note of 09/22/2017. SUBJECTIVE: Met with the patient in the evening of 09/22/2017. The patient slept 2-3/4 hours previous evening, somewhat confused, feels he is here for his wound problems. Nursing report indicates he has lost 16 pounds since being here. Diet is no added salt, may contribute to some of this. We will refer to dietitian to make recommendations. REVIEW OF SYSTEMS: Ambulation is impaired, in Broda chair. No CV, , pulmonary, eye system symptoms on review. Complains of some discomfort from wound on his left foot and complains of some discomfort in bottom area. Discussed with nursing staff. MENTAL STATUS EXAM: Oriented to himself, situation. Speech has some latency, coherent. Abstraction fair, computation is impaired, language function intact, attention span short. Mood and affect remains somewhat depressed, anxious. Denies active suicidal ideation. LABORATORY DATA: Reviewed. IMPRESSION: Major depressive disorder with psychotic features; cognitive disorder, unspecified. Rest unchanged. PLAN: Start trazodone 100 mg at bedtime scheduled, october repeat x 1 p.r.n. insomnia. Increase Wellbutrin XL to 300 mg a day after he has been on 150 mg for 3 days. Rest unchanged per initial note. Wound Care is following the patient. MAN Tatiana LARSON MD DR: ALEXSANDER/ana maria JOB#: [id number] / [id number]
[2017-09-24] MEDS: HYDROcodone/APAP 5/325MG 1 TAB TABLET PO PRN ×2 (05:40→11:39)
[2017-09-24 06:02] VITALS: BP 97/56
[2017-09-24 06:03] VITALS: BP 97/56
[2017-09-24] MEDS: QUEtiapine 25 MG TABLET. PO SCH ×2 (08:12→19:26)
[2017-09-24] MEDS: APIXABAN 5 MG TABLET. PO SCH ×2 (08:12→17:20)
[2017-09-24] MEDS: CITALOPRAM 20 MG TABLET. PO SCH (08:12)
[2017-09-24] MEDS: buPROPion XL 300 MG TAB.ER.24H. PO SCH (08:12)
[2017-09-24] MEDS: CLOPIDOGREL BISULFATE 75 MG TABLET PO SCH (08:13)
[2017-09-24] MEDS: FUROSEMIDE 40 MG TABLET PO SCH (08:13)
[2017-09-24] MEDS: ASCORBIC ACID 500 MG TABLET PO SCH (08:13)
[2017-09-24] MEDS: ALLOPURINOL 300 MG TABLET. PO SCH (08:14)
[2017-09-24] MEDS: MULTIVITAMIN I-VITE TABLET. PO SCH (08:14)
[2017-09-24] MEDS: POLYETHYLENE GLYCOL 3350 17 GM PACKET. PO SCH (08:15)
[2017-09-24] MEDS: ZINC SULFATE 220 MG CAPSULE. PO SCH (08:15)
[2017-09-24] MEDS: POTASSIUM CHLORIDE 20 MEQ TABLET.ER. PO SCH (08:15)
[2017-09-24] MEDS: LISINOPRIL 5 MG TABLET. PO SCH (08:16)
[2017-09-24] MEDS: CARVEDILOL 12.5 MG TABLET PO SCH ×2 (08:17→17:20)
[2017-09-24] MEDS: ACETAMINOPHEN 325 MG TABLET PO PRN (09:29)
[2017-09-24] MEDS: MAGNESIUM HYDROXIDE 2,400 MG/30 ML ORAL.SUSP. PO PRN (12:06)
[2017-09-24 16:27] VITALS: BP 113/60
--- NOTE | 2017-09-24 17:13 | RAD ---
Indication: Left heel diabetic ulcer Technique: Grayscale, color Doppler and spectral waveform images of the left lower activity arteries. Comparison: None Findings: Biphasic waveform is seen in the BIOLOGY LECTURER with velocity of 54 cm/s. Biphasic waveform is seen in the profunda femoris artery with velocity of 47 cm/s. Biphasic waveform is seen in the proximal SFA with velocity of 57 cm/s. Triphasic waveform seen in the mid SFA with a velocity of 82 cm/s. Monophasic waveform is seen in the distal SFA with velocity of 64 cm/s. Monophasic waveform is seen in the popliteal artery with velocity of 48 cm/s. Monophasic waveform is seen in the anterior tibial artery with velocity of 41 cm/s. Monophasic waveform is seen in the dorsalis pedis artery with velocity of 31 cm/s. Monophasic waveform is seen in the posterior tibial artery with velocity of 41 cm/s. Impression: Diffuse atherosclerotic disease of the left lower extremity arteries without focal elevated velocity to suggest focal high-grade stenosis. Findings are likely secondary to diffuse peripheral vascular disease especially in the infrapopliteal arteries.
[2017-09-24] MEDS: ATORVASTATIN CALCIUM 10 MG TABLET. PO SCH (19:26)
[2017-09-24] MEDS: traZODone 100 MG TABLET. PO SCH (19:26)
[2017-09-24] MEDS: AMITRIPTYLINE HCL 50 MG TABLET PO SCH (19:26)
[2017-09-24] MEDS: traMADol 50 MG TABLET PO SCH (19:27)
--- NOTE | 2017-09-24 20:58 | PDOC ---
Exam Note: Bon Note: Please also refer to the separate dictated note~for this date of service dictated separately.~Patient seen individually. Discussed the patient with Nursing staff reviewed the chart.~Reviewed interim history and current functioning. Reviewed vital signs,~Labs/ Radiology~and current medications noted below. Continue current treatment with the changes noted in the dictated addendum note Assessment: Vital Signs: Vital Signs Date Time Temp Pulse Resp B/P (MAP) Pulse Ox O2 Delivery O2 Flow Rate FiO2 09/24/17 20:28 99 Room Air 09/24/17 19:27 18 09/24/17 17:20 70 113/60 09/24/17 16:27 97.7 I&O Intake and Output 09/24/17 07:00 Intake Total 1320 ml Output Total 300 ml Balance 1020 ml Intake Oral 1320 ml Output Urine Total 300 ml Labs: Laboratory Tests Test 09/24/17 07:18 Glucose (Fingerstick) 101 mg/dL (70-99) H Current Medications: Meds: Current Medications Ciprofloxacin (Cipro) 500 mg 1X ONCE PO ; Start 09/17/17 at 22:15; Stop at 22:30; Status DC Ciprofloxacin (Cipro) 500 mg 1X ONCE PO Last administered on 09/18/17at 00:08; Start 09/17/17 at 23:00; Stop 09/17/17 at 23:01; Status DC Multi-Ingredient Ointment (Analgesic [place]) 1 bob PRN QID PRN TP MUSCLE PAIN; Start 09/17/17 at 22:45 Amitriptyline HCl (Elavil) 50 mg HS PO Last administered on 09/24/17 19:26; Start 09/18/17 at 21:00 Quetiapine Fumarate (SEROquel) 25 mg BID PO Last administered on 09/24/17 19: 26; Start 09/18/17 at 09:00 Citalopram Hydrobromide (CeleXA) 20 mg DAILY PO Last administered on 09/24/17at 08:12; Start 09/18/17 at 09:00 Melatonin 3 mg PRN QHS PRN PO INSOMNIA Last administered on 09/20/17 19:16; Start 09/17/17 at 23:00 Tramadol HCl (Ultram) 100 mg QHS PO Last administered on 09/24/17 19:27; Start 09/17/17 at 23:00 Acetaminophen (Tylenol) 650 mg PRN Q6HRS PRN PO PAIN / TEMP; Start 09/18/17 at 08:15 Allopurinol (Zyloprim) 300 mg DAILY PO Last administered on 09/24/17 08:14; Start 09/18/17 at 09:00 Apixaban (Eliquis) 5 mg BIDWMEALS PO Last administered on 09/24/17 17:20; Start 09/18/17 at 08:00 Ascorbic Acid (Vitamin C) 500 mg DAILY PO Last administered on 09/24/17 08:13 ; Start 09/18/17 at 09:00 Atorvastatin Calcium (Lipitor) 10 mg QHS PO Last administered on 09/24/17 19: 26; Start 09/18/17 at 21:00 Baclofen (Lioresal) 10 mg PRN Q6HRS PRN PO Epileptic Spasms; Start 09/18/17 at 08:15 Bisacodyl (Dulcolax Supp) 10 mg PRN DAILY PRN RC CONSTIPATION; Start 09/18/17 at 08:15 Clopidogrel Bisulfate (Plavix) 75 mg DAILY PO Last administered on 09/24/17 08 :13; Start 09/18/17 at 09:00 Furosemide (Lasix) 40 mg DAILY PO Last administered on 09/24/17 08:13; Start 09/18/17 at 09:00 Acetaminophen/ Hydrocodone Bitart (Lortab 5/325) 1 tab PRN Q6HRS PRN PO PAIN Last administered on 09/24/17at 11:39; Start 09/18/17 at 08:15; Stop 09/24/17 at 15:38; Status DC Lisinopril (Prinivil) 5 mg DAILY PO Last administered on 09/24/17 08:16; Start 09/18/17 at 09:00 Sodium Biphosphate/ Sodium Phosphate (Fleet Adult) 133 ml PRN DAILY PRN RC CONSTIPATION; Start 09/18/17 at 08:15 Nitroglycerin (Nitrostat) 0.4 mg PRN Q5MIN PRN SL Unstable Angina; Start at 08:15 Nystatin (Nystop) 1 bob PRN BID PRN TP RASH; Start 09/18/17 at 08:15 Polyethylene Glycol (miraLAX) 17 gm DAILY PO Last administered on 09/24/17 08: 15; Start 09/18/17 at 09:00 Potassium Chloride (Klor-Con) 20 meq DAILY PO Last administered on 09/24/17 08 :15; Start 09/18/17 at 09:00 Senna/Docusate Sodium (Senna Plus) 2 tab PRN QHS PRN PO CONSTIPATION; Start at 08:15 Carvedilol (Coreg) 25 mg BIDWMEALS PO Last administered on 09/24/17 17:20; Start 09/18/17 at 09:00 Zinc Sulfate (Orazinc) 220 mg DAILY PO Last administered on 09/24/17 08:15; Start 09/18/17 at 09:00 Non-Formulary Medication ([prostat] ) 30 ml BIDWMEALS PO ; Start 09/18/17 at 17: 00; Status UNV Bupropion HCl (Wellbutrin Xl) 150 mg DAILY PO Last administered on 09/22/17 08 :22; Start 09/19/17 at 14:00; Stop 09/22/17 at 18:55; Status DC Magnesium Hydroxide (Milk Of Magnesia) 2,400 mg PRN DAILY PRN PO CONSTIPATION Last administered on 09/24/17 12:06; Start 09/22/17 at 13:00 Multivitamins/ Minerals ([place]) 1 tab DAILY PO Last administered on 09/24/17 08:14; Start 09/23/17 at 09:00 Bupropion HCl (Wellbutrin Xl) 300 mg DAILY PO Last administered on 09/24/17 08 :12; Start 09/23/17 at 09:00; Stop 09/28/17 at 08:59 Trazodone HCl (Desyrel) 100 mg QHS PO Last administered on 09/24/17 19:26; Start 09/22/17 at 21:00 Bupropion HCl (Wellbutrin Xl) 450 mg DAILY PO ; Start 09/28/17 at 09:00 Acetaminophen/ Hydrocodone Bitart (Lortab 5/325) 1 tab PRN Q4HRS PRN PO PAIN; Start 09/24/17 at 15:45 Active Scripts Active Reported Furosemide 40 Mg Tablet 40 Mg PO DAILY Clopidogrel (Clopidogrel Bisulfate) 75 Mg Tablet 75 Mg PO DAILY Zinc Sulfate 220 Mg Tablet 220 Mg PO DAILY C-500 (Ascorbic Acid) 500 Mg Tablet 500 Mg PO DAILY Tylenol (Acetaminophen) 325 Mg Tablet 650 Mg PO PRN Q6HRS PRN Tramadol Hcl (Tramadol HCl) 50 Mg Tablet 100 Mg PO QHS Seroquel (Quetiapine Fumarate) 25 Mg Tablet 25 Mg PO BID Senna-Docusate Sodium Tablet (Sennosides/Docusate Sodium) 1 Each Tablet 2 Tab PO PRN QHS PRN [prostat] 30 Ml PO BIDWMEALS Klor-Con M20 (Potassium Chloride) 20 Meq Tab.er.prt 20 Meq PO DAILY Nystop (Nystatin) 60 Gm Powder 1 Bob TP PRN BID PRN [place] 5-325 Tablet (Hydrocodone Bit/Acetaminophen) 1 Each Tablet 1 Tab PO PRN Q6HRS PRN Nitrostat (Nitroglycerin) 0.4 Mg Tab.subl 0.4 Mg SL PRN Q5MIN PRN Maalox Advanced Suspension (Mag Hydrox/Aluminum Hyd/Simeth) 355 Ml Oral.susp 30 Ml PO PRN QID PRN Multivitamins With Minerals (Multivitamin With Minerals) 1 Each Tablet 1 Tab PO DAILY Miralax (Polyethylene Glycol 3350) 17 Gm Powd.pack 17 Gm PO DAILY Milk Of Magnesia (Magnesium Hydroxide) 2,400 Mg/10 Ml Oral.susp 2,400 Mg PO PRN QID PRN Melatonin 3 Mg Tablet 3 Mg PO PRN QHS PRN Lisinopril 5 Mg Tablet 5 Mg PO DAILY Lexapro (Escitalopram Oxalate) 10 Mg Tablet 10 Mg PO DAILY Fleet Enema (Na Phos,M-B/Na Phos,Di-Ba) 133 Ml Enema 133 Ml RC PRN DAILY PRN Eliquis (Apixaban) 5 Mg Tablet 5 Mg PO BIDWMEALS Coreg (Carvedilol) 25 Mg Tablet 25 Mg PO BIDWMEALS Bisacodyl 10 Mg Supp.rect 10 Mg RC PRN DAILY PRN Baclofen 10 Mg Tablet 10 Mg PO PRN Q6HRS PRN Atorvastatin Calcium 10 Mg Tablet 10 Mg PO QHS Amitriptyline Hcl 50 Mg Tablet 50 Mg PO HS Allopurinol 300 Mg Tablet 300 Mg PO DAILY I have reviewed the current psychotropics carefully including drug interactions. Risk benefit ratio favors no change other than as noted in my dictated progress note. Diagnosis: Problems: (1) Anxiety disorder (2) Major depressive disorder, recurrent episode (3) Mild cognitive impairment MARILY LARSON MD Sep 24, 2017 20:58
--- NOTE | 2017-09-24 21:45 | PN ---
DATE: 09/23/2017 This late entry 09/23/2017 covers elements not covered in my initial note of 09/23/2017. I met with the patient evening of 09/23/2017. SUBJECTIVE: The patient slept 5-1/2 hours previous evening. He has been fairly pleasant, somewhat forgetful, attended exercise groups. He gets a little confused, felt he had been at the hospital for about 4 months and remarked to me. He was surprised to hear he had been just at the hospital for one week. REVIEW OF SYSTEMS: Ambulation impaired, in Broda chair. No CV, , pulmonary, eye, ENT system symptoms on review. Does have some complaints of discomfort in his lower extremity wound and coccyx area, nursing staff addressing this. MENTAL STATUS EXAM: Oriented to himself and situation. Speech has some latency, coherent. Abstraction fair, computation impaired, language function intact. Mood and affect showing improvement. He was very verbal, interactive as I met with him. Denies active suicidal ideation. LABORATORY DATA: Reviewed. IMPRESSION: Major depressive disorder, recurrent, major neurocognitive disorder, early Alzheimer, vascular with depression. Rest unchanged. PLAN: Gradually increase the Wellbutrin-XL to 450 mg a day after he has been on 300 mg a day for 5 days. Continue Rest unchanged per initial note. MARILY LARSON MD DR: ALEXSANDER/ana maria JOB#: [id number] / [id number]
[2017-09-25 05:42] VITALS: BP 102/52
[2017-09-25] MEDS: CARVEDILOL 12.5 MG TABLET PO SCH ×2 (07:52→17:13)
[2017-09-25] MEDS: POLYETHYLENE GLYCOL 3350 17 GM PACKET. PO SCH (07:52)
[2017-09-25] MEDS: ASCORBIC ACID 500 MG TABLET PO SCH (07:52)
[2017-09-25] MEDS: APIXABAN 5 MG TABLET. PO SCH ×2 (07:52→17:13)
[2017-09-25] MEDS: ALLOPURINOL 300 MG TABLET. PO SCH (07:52)
[2017-09-25] MEDS: FUROSEMIDE 40 MG TABLET PO SCH (07:52)
[2017-09-25] MEDS: CITALOPRAM 20 MG TABLET. PO SCH (07:52)
[2017-09-25] MEDS: QUEtiapine 25 MG TABLET. PO SCH ×2 (07:53→20:55)
[2017-09-25] MEDS: POTASSIUM CHLORIDE 20 MEQ TABLET.ER. PO SCH (07:53)
[2017-09-25] MEDS: CLOPIDOGREL BISULFATE 75 MG TABLET PO SCH (07:53)
[2017-09-25] MEDS: ZINC SULFATE 220 MG CAPSULE. PO SCH (07:53)
[2017-09-25] MEDS: buPROPion XL 300 MG TAB.ER.24H. PO SCH (07:53)
[2017-09-25] MEDS: MULTIVITAMIN I-VITE TABLET. PO SCH (07:54)
[2017-09-25] MEDS: LISINOPRIL 5 MG TABLET. PO SCH (07:54)
[2017-09-25] MEDS: HYDROcodone/APAP 5/325MG 1 TAB TABLET PO PRN (15:09)
[2017-09-25 16:02] VITALS: BP 122/67
--- NOTE | 2017-09-25 20:51 | PDOC ---
Exam Note: Bon Note: Please also refer to the separate dictated note~for this date of service dictated separately.~Patient seen individually. Discussed the patient with Nursing staff reviewed the chart.~Reviewed interim history and current functioning. Reviewed vital signs,~Labs/ Radiology~and current medications noted below. Continue current treatment with the changes noted in the dictated addendum note Assessment: Vital Signs: Vital Signs Date Time Temp Pulse Resp B/P (MAP) Pulse Ox O2 Delivery O2 Flow Rate FiO2 09/25/17 17:13 69 122/67 09/25/17 16:30 18 98 Room Air 09/25/17 16:02 97.9 I&O Intake and Output 09/25/17 07:00 Intake Total 1200 ml Balance 1200 ml Intake Oral 1200 ml Labs: Laboratory Tests Test 09/25/17 07:50 Glucose (Fingerstick) 121 mg/dL (70-99) H Current Medications: Meds: Current Medications Ciprofloxacin (Cipro) 500 mg 1X ONCE PO ; Start 09/17/17 at 22:15; Stop at 22:30; Status DC Ciprofloxacin (Cipro) 500 mg 1X ONCE PO Last administered on 09/18/17at 00:08; Start 09/17/17 at 23:00; Stop 09/17/17 at 23:01; Status DC Multi-Ingredient Ointment (Analgesic [place]) 1 bob PRN QID PRN TP MUSCLE PAIN; Start 09/17/17 at 22:45 Amitriptyline HCl (Elavil) 50 mg HS PO Last administered on 09/24/17at 19:26; Start 09/18/17 at 21:00 Quetiapine Fumarate (SEROquel) 25 mg BID PO Last administered on 09/25/17at 07: 53; Start 09/18/17 at 09:00 Citalopram Hydrobromide (CeleXA) 20 mg DAILY PO Last administered on 09/25/17at 07:52; Start 09/18/17 at 09:00 Melatonin 3 mg PRN QHS PRN PO INSOMNIA Last administered on 09/20/17at 19:16; Start 09/17/17 at 23:00 Tramadol HCl (Ultram) 100 mg QHS PO Last administered on 09/24/17at 19:27; Start 09/17/17 at 23:00 Acetaminophen (Tylenol) 650 mg PRN Q6HRS PRN PO PAIN / TEMP; Start 09/18/17 at 08:15 Allopurinol (Zyloprim) 300 mg DAILY PO Last administered on 09/25/17at 07:52; Start 09/18/17 at 09:00 Apixaban (Eliquis) 5 mg BIDWMEALS PO Last administered on 09/25/17 17:13; Start 09/18/17 at 08:00 Ascorbic Acid (Vitamin C) 500 mg DAILY PO Last administered on 09/25/17 07:52 ; Start 09/18/17 at 09:00 Atorvastatin Calcium (Lipitor) 10 mg QHS PO Last administered on 09/24/17at 19: 26; Start 09/18/17 at 21:00 Baclofen (Lioresal) 10 mg PRN Q6HRS PRN PO Epileptic Spasms; Start 09/18/17 at 08:15 Bisacodyl (Dulcolax Supp) 10 mg PRN DAILY PRN RC CONSTIPATION Last administered on 09/25/17at 10:15; Start 09/18/17 at 08:15 Clopidogrel Bisulfate (Plavix) 75 mg DAILY PO Last administered on 09/25/17at 07 :53; Start 09/18/17 at 09:00 Furosemide (Lasix) 40 mg DAILY PO Last administered on 09/25/17 07:52; Start 09/18/17 at 09:00 Acetaminophen/ Hydrocodone Bitart (Lortab 5/325) 1 tab PRN Q6HRS PRN PO PAIN Last administered on 09/24/17at 11:39; Start 09/18/17 at 08:15; Stop 09/24/17 at 15:38; Status DC Lisinopril (Prinivil) 5 mg DAILY PO Last administered on 09/25/17at 07:54; Start 09/18/17 at 09:00 Sodium Biphosphate/ Sodium Phosphate (Fleet Adult) 133 ml PRN DAILY PRN RC CONSTIPATION; Start 09/18/17 at 08:15 Nitroglycerin (Nitrostat) 0.4 mg PRN Q5MIN PRN SL Unstable Angina; Start at 08:15 Nystatin (Nystop) 1 bob PRN BID PRN TP RASH; Start 09/18/17 at 08:15 Polyethylene Glycol (miraLAX) 17 gm DAILY PO Last administered on 09/25/17 07: 52; Start 09/18/17 at 09:00 Potassium Chloride (Klor-Con) 20 meq DAILY PO Last administered on 09/25/17 07 :53; Start 09/18/17 at 09:00 Senna/Docusate Sodium (Senna Plus) 2 tab PRN QHS PRN PO CONSTIPATION; Start at 08:15 Carvedilol (Coreg) 25 mg BIDWMEALS PO Last administered on 09/25/17 17:13; Start 09/18/17 at 09:00 Zinc Sulfate (Orazinc) 220 mg DAILY PO Last administered on 09/25/17 07:53; Start 09/18/17 at 09:00 Non-Formulary Medication ([prostat] ) 30 ml BIDWMEALS PO ; Start 09/18/17 at 17: 00; Status UNV Bupropion HCl (Wellbutrin Xl) 150 mg DAILY PO Last administered on 09/22/17 08 :22; Start 09/19/17 at 14:00; Stop 09/22/17 at 18:55; Status DC Magnesium Hydroxide (Milk Of Magnesia) 2,400 mg PRN DAILY PRN PO CONSTIPATION Last administered on 09/24/17 12:06; Start 09/22/17 at 13:00 Multivitamins/ Minerals ([place]) 1 tab DAILY PO Last administered on 09/25/17 07:54; Start 09/23/17 at 09:00 Bupropion HCl (Wellbutrin Xl) 300 mg DAILY PO Last administered on 09/25/17 07 :53; Start 09/23/17 at 09:00; Stop 09/28/17 at 08:59 Trazodone HCl (Desyrel) 100 mg QHS PO Last administered on 09/24/17 19:26; Start 09/22/17 at 21:00 Bupropion HCl (Wellbutrin Xl) 450 mg DAILY PO ; Start 09/28/17 at 09:00 Acetaminophen/ Hydrocodone Bitart (Lortab 5/325) 1 tab PRN Q4HRS PRN PO PAIN Last administered on 09/25/17 15:09; Start 09/24/17 at 15:45 Active Scripts Active Reported Furosemide 40 Mg Tablet 40 Mg PO DAILY Clopidogrel (Clopidogrel Bisulfate) 75 Mg Tablet 75 Mg PO DAILY Zinc Sulfate 220 Mg Tablet 220 Mg PO DAILY C-500 (Ascorbic Acid) 500 Mg Tablet 500 Mg PO DAILY Tylenol (Acetaminophen) 325 Mg Tablet 650 Mg PO PRN Q6HRS PRN Tramadol Hcl (Tramadol HCl) 50 Mg Tablet 100 Mg PO QHS Seroquel (Quetiapine Fumarate) 25 Mg Tablet 25 Mg PO BID Senna-Docusate Sodium Tablet (Sennosides/Docusate Sodium) 1 Each Tablet 2 Tab PO PRN QHS PRN [prostat] 30 Ml PO BIDWMEALS Klor-Con M20 (Potassium Chloride) 20 Meq Tab.er.prt 20 Meq PO DAILY Nystop (Nystatin) 60 Gm Powder 1 Bob TP PRN BID PRN [place] 5-325 Tablet (Hydrocodone Bit/Acetaminophen) 1 Each Tablet 1 Tab PO PRN Q6HRS PRN Nitrostat (Nitroglycerin) 0.4 Mg Tab.subl 0.4 Mg SL PRN Q5MIN PRN Maalox Advanced Suspension (Mag Hydrox/Aluminum Hyd/Simeth) 355 Ml Oral.susp 30 Ml PO PRN QID PRN Multivitamins With Minerals (Multivitamin With Minerals) 1 Each Tablet 1 Tab PO DAILY Miralax (Polyethylene Glycol 3350) 17 Gm Powd.pack 17 Gm PO DAILY Milk Of Magnesia (Magnesium Hydroxide) 2,400 Mg/10 Ml Oral.susp 2,400 Mg PO PRN QID PRN Melatonin 3 Mg Tablet 3 Mg PO PRN QHS PRN Lisinopril 5 Mg Tablet 5 Mg PO DAILY Lexapro (Escitalopram Oxalate) 10 Mg Tablet 10 Mg PO DAILY Fleet Enema (Na Phos,M-B/Na Phos,Di-Ba) 133 Ml Enema 133 Ml RC PRN DAILY PRN Eliquis (Apixaban) 5 Mg Tablet 5 Mg PO BIDWMEALS Coreg (Carvedilol) 25 Mg Tablet 25 Mg PO BIDWMEALS Bisacodyl 10 Mg Supp.rect 10 Mg RC PRN DAILY PRN Baclofen 10 Mg Tablet 10 Mg PO PRN Q6HRS PRN Atorvastatin Calcium 10 Mg Tablet 10 Mg PO QHS Amitriptyline Hcl 50 Mg Tablet 50 Mg PO HS Allopurinol 300 Mg Tablet 300 Mg PO DAILY I have reviewed the current psychotropics carefully including drug interactions. Risk benefit ratio favors no change other than as noted in my dictated progress note. Diagnosis: Problems: (1) Anxiety disorder (2) Major depressive disorder, recurrent episode (3) Mild cognitive impairment MARILY LARSON MD Sep 25, 2017 20:51
[2017-09-25] MEDS: traZODone 100 MG TABLET. PO SCH (20:55)
[2017-09-25] MEDS: AMITRIPTYLINE HCL 50 MG TABLET PO SCH (20:55)
[2017-09-25] MEDS: ATORVASTATIN CALCIUM 10 MG TABLET. PO SCH (20:55)
[2017-09-25] MEDS: traMADol 50 MG TABLET PO SCH (20:56)
[2017-09-26 06:07] VITALS: BP 95/56
[2017-09-26] MEDS: HYDROcodone/APAP 5/325MG 1 TAB TABLET PO PRN ×3 (08:46→16:35)
[2017-09-26] MEDS: APIXABAN 5 MG TABLET. PO SCH ×2 (08:46→16:52)
[2017-09-26] MEDS: buPROPion XL 300 MG TAB.ER.24H. PO SCH (08:46)
[2017-09-26] MEDS: QUEtiapine 25 MG TABLET. PO SCH ×2 (08:47→19:58)
[2017-09-26] MEDS: CITALOPRAM 20 MG TABLET. PO SCH (08:47)
[2017-09-26] MEDS: CARVEDILOL 12.5 MG TABLET PO SCH ×2 (08:47→16:52)
[2017-09-26] MEDS: CLOPIDOGREL BISULFATE 75 MG TABLET PO SCH (08:47)
[2017-09-26] MEDS: MULTIVITAMIN I-VITE TABLET. PO SCH (08:47)
[2017-09-26] MEDS: ASCORBIC ACID 500 MG TABLET PO SCH (08:47)
[2017-09-26] MEDS: ZINC SULFATE 220 MG CAPSULE. PO SCH (08:48)
[2017-09-26] MEDS: LISINOPRIL 5 MG TABLET. PO SCH (08:48)
[2017-09-26] MEDS: POLYETHYLENE GLYCOL 3350 17 GM PACKET. PO SCH (08:48)
[2017-09-26] MEDS: FUROSEMIDE 40 MG TABLET PO SCH (08:48)
[2017-09-26] MEDS: POTASSIUM CHLORIDE 20 MEQ TABLET.ER. PO SCH (08:48)
[2017-09-26] MEDS: ALLOPURINOL 300 MG TABLET. PO SCH (08:48)
[2017-09-26 16:16] VITALS: BP 99/66
[2017-09-26] MEDS: CHOLECALCIFEROL (VITAMIN D3) 50,000 UNIT CAPSULE PO SCH (16:35)
[2017-09-26] MEDS ORDERED: LORazepam 0.5 MG TABLET PO PRN (18:15)
[2017-09-26] MEDS: traZODone 100 MG TABLET. PO SCH (19:55)
[2017-09-26] MEDS: ATORVASTATIN CALCIUM 10 MG TABLET. PO SCH (19:57)
[2017-09-26] MEDS: traMADol 50 MG TABLET PO SCH (19:57)
[2017-09-26] MEDS: AMITRIPTYLINE HCL 50 MG TABLET PO SCH (19:59)
--- NOTE | 2017-09-26 20:55 | PDOC ---
Exam Note: Bon Note: Please also refer to the separate dictated note~for this date of service dictated separately.~Patient seen individually. Discussed the patient with Nursing staff reviewed the chart.~Reviewed interim history and current functioning. Reviewed vital signs,~Labs/ Radiology~and current medications noted below. Continue current treatment with the changes noted in the dictated addendum note Assessment: Vital Signs: Vital Signs Date Time Temp Pulse Resp B/P (MAP) Pulse Ox O2 Delivery O2 Flow Rate FiO2 09/26/17 19:57 18 09/26/17 18:23 96 Room Air 09/26/17 16:52 71 99/66 09/26/17 16:16 97.3 I&O Intake and Output 09/26/17 07:00 Intake Total 1680 ml Output Total 600 ml Balance 1080 ml Intake Oral 1680 ml Output Urine Total 600 ml # Bowel Movements 1 Labs: Laboratory Tests Test 09/26/17 07:28 Glucose (Fingerstick) 95 mg/dL (70-99) Current Medications: Meds: Current Medications Ciprofloxacin (Cipro) 500 mg 1X ONCE PO ; Start 09/17/17 at 22:15; Stop at 22:30; Status DC Ciprofloxacin (Cipro) 500 mg 1X ONCE PO Last administered on 09/18/17at 00:08; Start 09/17/17 at 23:00; Stop 09/17/17 at 23:01; Status DC Multi-Ingredient Ointment (Analgesic [place]) 1 bob PRN QID PRN TP MUSCLE PAIN; Start 09/17/17 at 22:45 Amitriptyline HCl (Elavil) 50 mg HS PO Last administered on 09/26/17at 19:59; Start 09/18/17 at 21:00 Quetiapine Fumarate (SEROquel) 25 mg BID PO Last administered on 09/26/17at 19: 58; Start 09/18/17 at 09:00 Citalopram Hydrobromide (CeleXA) 20 mg DAILY PO Last administered on 09/26/17at 08:47; Start 09/18/17 at 09:00 Melatonin 3 mg PRN QHS PRN PO INSOMNIA Last administered on 09/20/17 19:16; Start 09/17/17 at 23:00 Tramadol HCl (Ultram) 100 mg QHS PO Last administered on 09/26/17 19:57; Start 09/17/17 at 23:00 Acetaminophen (Tylenol) 650 mg PRN Q6HRS PRN PO PAIN / TEMP; Start 09/18/17 at 08:15 Allopurinol (Zyloprim) 300 mg DAILY PO Last administered on 09/26/17 08:48; Start 09/18/17 at 09:00 Apixaban (Eliquis) 5 mg BIDWMEALS PO Last administered on 09/26/17 16:52; Start 09/18/17 at 08:00 Ascorbic Acid (Vitamin C) 500 mg DAILY PO Last administered on 09/26/17 08:47 ; Start 09/18/17 at 09:00 Atorvastatin Calcium (Lipitor) 10 mg QHS PO Last administered on 09/26/17 19: 57; Start 09/18/17 at 21:00 Baclofen (Lioresal) 10 mg PRN Q6HRS PRN PO Epileptic Spasms; Start 09/18/17 at 08:15 Bisacodyl (Dulcolax Supp) 10 mg PRN DAILY PRN RC CONSTIPATION Last administered on 09/25/17 10:15; Start 09/18/17 at 08:15 Clopidogrel Bisulfate (Plavix) 75 mg DAILY PO Last administered on 09/26/17 08 :47; Start 09/18/17 at 09:00 Furosemide (Lasix) 40 mg DAILY PO Last administered on 09/26/17 08:48; Start 09/18/17 at 09:00 Acetaminophen/ Hydrocodone Bitart (Lortab 5/325) 1 tab PRN Q6HRS PRN PO PAIN Last administered on 09/24/17 11:39; Start 09/18/17 at 08:15; Stop 09/24/17 at 15:38; Status DC Lisinopril (Prinivil) 5 mg DAILY PO Last administered on 09/26/17 08:48; Start 09/18/17 at 09:00 Sodium Biphosphate/ Sodium Phosphate (Fleet Adult) 133 ml PRN DAILY PRN RC CONSTIPATION; Start 09/18/17 at 08:15 Nitroglycerin (Nitrostat) 0.4 mg PRN Q5MIN PRN SL Unstable Angina; Start at 08:15 Nystatin (Nystop) 1 bob PRN BID PRN TP RASH; Start 09/18/17 at 08:15 Polyethylene Glycol (miraLAX) 17 gm DAILY PO Last administered on 09/26/17 08: 48; Start 09/18/17 at 09:00 Potassium Chloride (Klor-Con) 20 meq DAILY PO Last administered on 09/26/17 08 :48; Start 09/18/17 at 09:00 Senna/Docusate Sodium (Senna Plus) 2 tab PRN QHS PRN PO CONSTIPATION; Start at 08:15 Carvedilol (Coreg) 25 mg BIDWMEALS PO Last administered on 09/26/17 16:52; Start 09/18/17 at 09:00 Zinc Sulfate (Orazinc) 220 mg DAILY PO Last administered on 09/26/17 08:48; Start 09/18/17 at 09:00 Non-Formulary Medication ([prostat] ) 30 ml BIDWMEALS PO ; Start 09/18/17 at 17: 00; Status UNV Bupropion HCl (Wellbutrin Xl) 150 mg DAILY PO Last administered on 09/22/17 08 :22; Start 09/19/17 at 14:00; Stop 09/22/17 at 18:55; Status DC Magnesium Hydroxide (Milk Of Magnesia) 2,400 mg PRN DAILY PRN PO CONSTIPATION Last administered on 09/24/17 12:06; Start 09/22/17 at 13:00 Multivitamins/ Minerals ([place]) 1 tab DAILY PO Last administered on 09/26/17 08:47; Start 09/23/17 at 09:00 Bupropion HCl (Wellbutrin Xl) 300 mg DAILY PO Last administered on 09/26/17 08 :46; Start 09/23/17 at 09:00; Stop 09/28/17 at 08:59 Trazodone HCl (Desyrel) 100 mg QHS PO Last administered on 09/26/17 19:55; Start 09/22/17 at 21:00 Bupropion HCl (Wellbutrin Xl) 450 mg DAILY PO ; Start 09/28/17 at 09:00 Acetaminophen/ Hydrocodone Bitart (Lortab 5/325) 1 tab PRN Q4HRS PRN PO PAIN Last administered on 3/30/18at 16:35; Start 09/24/17 at 15:45 Vitamin D (Vitamin D3) 50,000 unit WEEKLY PO Last administered on 09/26/17at 16: 35; Start 09/26/17 at 16:00 Lorazepam (Ativan) 0.25 mg PRN Q4HRS PRN PO ANXIETY / AGITATION; Start at 18:15 Active Scripts Active Reported Furosemide 40 Mg Tablet 40 Mg PO DAILY Clopidogrel (Clopidogrel Bisulfate) 75 Mg Tablet 75 Mg PO DAILY Zinc Sulfate 220 Mg Tablet 220 Mg PO DAILY C-500 (Ascorbic Acid) 500 Mg Tablet 500 Mg PO DAILY Tylenol (Acetaminophen) 325 Mg Tablet 650 Mg PO PRN Q6HRS PRN Tramadol Hcl (Tramadol HCl) 50 Mg Tablet 100 Mg PO QHS Seroquel (Quetiapine Fumarate) 25 Mg Tablet 25 Mg PO BID Senna-Docusate Sodium Tablet (Sennosides/Docusate Sodium) 1 Each Tablet 2 Tab PO PRN QHS PRN [prostat] 30 Ml PO BIDWMEALS Klor-Con M20 (Potassium Chloride) 20 Meq Tab.er.prt 20 Meq PO DAILY Nystop (Nystatin) 60 Gm Powder 1 Bob TP PRN BID PRN [place] 5-325 Tablet (Hydrocodone Bit/Acetaminophen) 1 Each Tablet 1 Tab PO PRN Q6HRS PRN Nitrostat (Nitroglycerin) 0.4 Mg Tab.subl 0.4 Mg SL PRN Q5MIN PRN Maalox Advanced Suspension (Mag Hydrox/Aluminum Hyd/Simeth) 355 Ml Oral.susp 30 Ml PO PRN QID PRN Multivitamins With Minerals (Multivitamin With Minerals) 1 Each Tablet 1 Tab PO DAILY Miralax (Polyethylene Glycol 3350) 17 Gm Powd.pack 17 Gm PO DAILY Milk Of Magnesia (Magnesium Hydroxide) 2,400 Mg/10 Ml Oral.susp 2,400 Mg PO PRN QID PRN Melatonin 3 Mg Tablet 3 Mg PO PRN QHS PRN Lisinopril 5 Mg Tablet 5 Mg PO DAILY Lexapro (Escitalopram Oxalate) 10 Mg Tablet 10 Mg PO DAILY Fleet Enema (Na Phos,M-B/Na Phos,Di-Ba) 133 Ml Enema 133 Ml RC PRN DAILY PRN Eliquis (Apixaban) 5 Mg Tablet 5 Mg PO BIDWMEALS Coreg (Carvedilol) 25 Mg Tablet 25 Mg PO BIDWMEALS Bisacodyl 10 Mg Supp.rect 10 Mg RC PRN DAILY PRN Baclofen 10 Mg Tablet 10 Mg PO PRN Q6HRS PRN Atorvastatin Calcium 10 Mg Tablet 10 Mg PO QHS Amitriptyline Hcl 50 Mg Tablet 50 Mg PO HS Allopurinol 300 Mg Tablet 300 Mg PO DAILY I have reviewed the current psychotropics carefully including drug interactions. Risk benefit ratio favors no change other than as noted in my dictated progress note. Diagnosis: Problems: (1) Anxiety disorder (2) Major depressive disorder, recurrent episode (3) Mild cognitive impairment MARILY LARSON MD Sep 26, 2017 20:55
--- NOTE | 2017-09-26 23:49 | PN ---
DATE: 09/25/2017 PSYCHIATRIC PROGRESS NOTE This late entry 09/25/2017 covers elements not covered in my initial note of 09/25/2017. SUBJECTIVE: Met with the patient in the evening of 09/25/2017. The patient has done better during the day. Has complained of some pain in his bottom area, making some sexually inappropriate comments. Remains somewhat forgetful. He received Lortab for the pain per Dr. [place]. Not been aggressive. He is somewhat confused about the date. Doppler was done. Lower extremity is unremarkable. REVIEW OF SYSTEMS: Ambulation impaired, in Broda chair. No CV, , pulmonary, eye system symptoms on review. Complains of pain in coccygeal area. MENTAL STATUS EXAM: Oriented to himself and situation. Speech is coherent, has some latency. Abstraction fair, computation is impaired, language function intact, attention span short. Mood and affect is still somewhat depressed, but showing improvement. LABORATORY DATA: Reviewed. IMPRESSION: Major depressive disorder with psychotic features; anxiety disorder, unspecified; cognitive disorder, unspecified. PLAN: Continue current psychotropics, increase Wellbutrin XL to 450 mg a day after he has been on 300 mg a day for 5 days. Rest to be continued unchanged. MARILY LARSON MD DR: ALEXSANDER/ana maria JOB#: [id number] / [id number]
--- NOTE | 2017-09-27 01:19 | PN ---
DATE: 09/25/2017 This late entry 09/25/2017 covers elements not covered in my initial note 09/25/2017. Met with the patient in the evening of 09/25/2017. Staffed at a treatment team meeting with the entire team morning of 09/25/2017. Appetite 100%, sleeping average 5 hours, slept 6 hours previous evening, compliant with medications, pleasant, has a sense of humor, funny at times. He is quite insistent on going home when he is discharged. Given his level of functioning, this is of concern, but he states he will get the people from [facility] to help him. Discussed at treatment team meeting that we should invite the people from [facility] that would be helping him to come here and look at him and see if they would be able to provide adequately for him at home as he expects them to. He will also be given a printed list of his medications and given the responsibility of getting to the nursing staff to ask for his medications at the appropriate time following the list. All of this in an attempt to see if he can really function at home by himself, which seems somewhat tenuous and we addressed this with social service staff. There is also some contact with his ex-, but he is not available to assist him around the clock at home, however. REVIEW OF SYSTEMS: Ambulation impaired, in wheelchair and states his wheelchair is too small for him. Physical therapy staffs are addressing this. No CV, , pulmonary, eye, ENT system symptoms on review. MENTAL STATUS EXAM: Oriented to himself and situation. Speech has some latency, coherent. Abstraction fair, computation impaired, language function intact, attention span short. Mood and affect still somewhat depressed, withdrawn. No suicidal ideation. LABORATORY DATA: Reviewed. IMPRESSION: Major depressive disorder with psychotic features in partial remission; cognitive disorder, unspecified. Rest unchanged from initial note. PLAN: Continue psychotropics mentioned in my initial note. We will adjust further as clinically indicated. MAN Tatiana LARSON MD DR: ALEXSANDER/ana maria JOB#: [id number] / [id number]
[2017-09-27 05:53] VITALS: BP 110/67
[2017-09-27 07:13] LABS: BASO # 0.1 x10^3/uL (0.0-0.2); BASO % 1 % (0-3); EOS # 0.9 x10^3/uL (0.0-0.7); EOS % 10 % (0-3); HEMATOCRIT 38.8 % (39.0-53.0); LYMPH # 1.9 x10^3/uL (1.0-4.8); LYMPH % 22 % (24-48); MEAN CORPUSCULAR HEMOGLOBIN 30 pg (25-35); MEAN CORPUSCULAR HGB CONC 34 g/dL (31-37); MEAN CORPUSCULAR VOLUME 90 fL (79-100); MONO # 0.6 x10^3/uL (0.0-1.1); MONO % 7 % (0-9); NEUT # 5.3 x10^3uL (1.8-7.7); NEUT % 61 % (31-73); PLATELET COUNT 140 x10^3/uL (140-400); RED BLOOD COUNT 4.29 x10^6/uL (4.30-5.70); RED CELL DISTRIBUTION WIDTH 15.4 % (11.5-14.5); WHITE BLOOD COUNT 8.8 x10^3/uL (4.0-11.0)
[2017-09-27 07:27] LABS: ALBUMIN 2.8 g/dL (3.4-5.0); ALBUMIN/GLOBULIN RATIO 0.8 (1.0-1.7); CALCIUM 9.2 mg/dL (8.5-10.1); CREATININE 0.9 mg/dL (0.7-1.3); GFR 83.9; TOTAL BILIRUBIN 0.3 mg/dL (0.2-1.0); TOTAL PROTEIN 6.5 g/dL (6.4-8.2)
[2017-09-27] MEDS: QUEtiapine 25 MG TABLET. PO SCH ×2 (07:56→19:37)
[2017-09-27] MEDS: ASCORBIC ACID 500 MG TABLET PO SCH (07:56)
[2017-09-27] MEDS: CITALOPRAM 20 MG TABLET. PO SCH (07:56)
[2017-09-27] MEDS: ZINC SULFATE 220 MG CAPSULE. PO SCH (07:56)
[2017-09-27] MEDS: POTASSIUM CHLORIDE 20 MEQ TABLET.ER. PO SCH (07:56)
[2017-09-27] MEDS: buPROPion XL 300 MG TAB.ER.24H. PO SCH (07:57)
[2017-09-27] MEDS: FUROSEMIDE 40 MG TABLET PO SCH (07:57)
[2017-09-27] MEDS: APIXABAN 5 MG TABLET. PO SCH ×2 (07:57→17:28)
[2017-09-27] MEDS: CARVEDILOL 12.5 MG TABLET PO SCH ×2 (07:57→17:00)
[2017-09-27] MEDS: CLOPIDOGREL BISULFATE 75 MG TABLET PO SCH (07:58)
[2017-09-27] MEDS: LISINOPRIL 5 MG TABLET. PO SCH (07:58)
[2017-09-27] MEDS: ALLOPURINOL 300 MG TABLET. PO SCH (07:58)
[2017-09-27] MEDS: POLYETHYLENE GLYCOL 3350 17 GM PACKET. PO SCH (07:58)
[2017-09-27] MEDS: MULTIVITAMIN I-VITE TABLET. PO SCH (07:58)
[2017-09-27] MEDS: HYDROcodone/APAP 5/325MG 1 TAB TABLET PO PRN (09:12)
[2017-09-27 15:46] VITALS: BP 97/50
[2017-09-27] MEDS: ATORVASTATIN CALCIUM 10 MG TABLET. PO SCH (19:36)
[2017-09-27] MEDS: traZODone 100 MG TABLET. PO SCH (19:36)
[2017-09-27] MEDS: AMITRIPTYLINE HCL 50 MG TABLET PO SCH (19:37)
[2017-09-27] MEDS: traMADol 50 MG TABLET PO SCH (19:38)
--- NOTE | 2017-09-27 22:47 | PDOC ---
Exam Note: Bon Note: Please also refer to the separate dictated note~for this date of service dictated separately.~Patient seen individually. Discussed the patient with Nursing staff reviewed the chart.~Reviewed interim history and current functioning. Reviewed vital signs,~Labs/ Radiology~and current medications noted below. Continue current treatment with the changes noted in the dictated addendum note Assessment: Vital Signs: Vital Signs Date Time Temp Pulse Resp B/P (MAP) Pulse Ox O2 Delivery O2 Flow Rate FiO2 09/27/17 19:38 20 09/27/17 17:00 66 97/50 09/27/17 15:46 97.7 09/27/17 10:12 97 Room Air I&O Intake and Output 09/27/17 07:00 Intake Total 1200 ml Output Total 500 ml Balance 700 ml Intake Oral 1200 ml Output Urine Total 500 ml Labs: Laboratory Tests Test 09/27/17 06:45 09/27/17 07:06 White Blood Count 8.8 x10^3/uL (4.0-11.0) Red Blood Count 4.29 x10^6/uL (4.30-5.70) L Hemoglobin 13.0 g/dL (13.0-17.5) Hematocrit 38.8 % (39.0-53.0) L Mean Corpuscular Volume 90 fL (79-100) Mean Corpuscular Hemoglobin 30 pg (25-35) Mean Corpuscular Hemoglobin Concent 34 g/dL (31-37) Red Cell Distribution Width 15.4 % (11.5-14.5) H Platelet Count 140 x10^3/uL (140-400) Neutrophils (%) (Auto) 61 % (31-73) Lymphocytes (%) (Auto) 22 % (24-48) L Monocytes (%) (Auto) 7 % (0-9) Eosinophils (%) (Auto) 10 % (0-3) H Basophils (%) (Auto) 1 % (0-3) Neutrophils # (Auto) 5.3 x10^3uL (1.8-7.7) Lymphocytes # (Auto) 1.9 x10^3/uL (1.0-4.8) Monocytes # (Auto) 0.6 x10^3/uL (0.0-1.1) Eosinophils # (Auto) 0.9 x10^3/uL (0.0-0.7) H Basophils # (Auto) 0.1 x10^3/uL (0.0-0.2) Sodium Level 142 mmol/L (136-145) Potassium Level 4.0 mmol/L (3.5-5.1) Chloride Level 106 mmol/L (98-107) Carbon Dioxide Level 29 mmol/L (21-32) Anion Gap 7 (6-14) Blood Urea Nitrogen 19 mg/dL (8-26) Creatinine 0.9 mg/dL (0.7-1.3) Estimated GFR (Cockcroft-Gault) 83.9 BUN/Creatinine Ratio 21 (6-20) H Glucose Level 85 mg/dL (70-99) Uric Acid 3.9 mg/dL (3.5-7.2) Calcium Level 9.2 mg/dL (8.5-10.1) Total Bilirubin 0.3 mg/dL (0.2-1.0) Aspartate Amino Transferase (AST) 21 U/L (15-37) Alanine Aminotransferase (ALT) 23 U/L (16-63) Alkaline Phosphatase 126 U/L (46-116) H Total Protein 6.5 g/dL (6.4-8.2) Albumin 2.8 g/dL (3.4-5.0) L Albumin/Globulin Ratio 0.8 (1.0-1.7) L Glucose (Fingerstick) 94 mg/dL (70-99) Current Medications: Meds: Current Medications Ciprofloxacin (Cipro) 500 mg 1X ONCE PO ; Start 09/17/17 at 22:15; Stop at 22:30; Status DC Ciprofloxacin (Cipro) 500 mg 1X ONCE PO Last administered on 09/18/17at 00:08; Start 09/17/17 at 23:00; Stop 09/17/17 at 23:01; Status DC Multi-Ingredient Ointment (Analgesic [place]) 1 bob PRN QID PRN TP MUSCLE PAIN; Start 09/17/17 at 22:45 Amitriptyline HCl (Elavil) 50 mg HS PO Last administered on 09/27/17at 19:37; Start 09/18/17 at 21:00 Quetiapine Fumarate (SEROquel) 25 mg BID PO Last administered on 09/27/17at 19: 37; Start 09/18/17 at 09:00 Citalopram Hydrobromide (CeleXA) 20 mg DAILY PO Last administered on 09/27/17 07:56; Start 09/18/17 at 09:00 Melatonin 3 mg PRN QHS PRN PO INSOMNIA Last administered on 09/20/17 19:16; Start 09/17/17 at 23:00 Tramadol HCl (Ultram) 100 mg QHS PO Last administered on 09/27/17 19:38; Start 09/17/17 at 23:00 Acetaminophen (Tylenol) 650 mg PRN Q6HRS PRN PO PAIN / TEMP; Start 09/18/17 at 08:15 Allopurinol (Zyloprim) 300 mg DAILY PO Last administered on 09/27/17 07:58; Start 09/18/17 at 09:00 Apixaban (Eliquis) 5 mg BIDWMEALS PO Last administered on 09/27/17 17:28; Start 09/18/17 at 08:00 Ascorbic Acid (Vitamin C) 500 mg DAILY PO Last administered on 09/27/17 07:56 ; Start 09/18/17 at 09:00 Atorvastatin Calcium (Lipitor) 10 mg QHS PO Last administered on 09/27/17 19: 36; Start 09/18/17 at 21:00 Baclofen (Lioresal) 10 mg PRN Q6HRS PRN PO Epileptic Spasms; Start 09/18/17 at 08:15 Bisacodyl (Dulcolax Supp) 10 mg PRN DAILY PRN RC CONSTIPATION Last administered on 09/25/17at 10:15; Start 09/18/17 at 08:15 Clopidogrel Bisulfate (Plavix) 75 mg DAILY PO Last administered on 09/27/17 07 :58; Start 09/18/17 at 09:00 Furosemide (Lasix) 40 mg DAILY PO Last administered on 09/27/17 07:57; Start 09/18/17 at 09:00 Acetaminophen/ Hydrocodone Bitart (Lortab 5/325) 1 tab PRN Q6HRS PRN PO PAIN Last administered on 09/24/17 11:39; Start 09/18/17 at 08:15; Stop 09/24/17 at 15:38; Status DC Lisinopril (Prinivil) 5 mg DAILY PO Last administered on 09/27/17 07:58; Start 09/18/17 at 09:00 Sodium Biphosphate/ Sodium Phosphate (Fleet Adult) 133 ml PRN DAILY PRN RC CONSTIPATION; Start 09/18/17 at 08:15 Nitroglycerin (Nitrostat) 0.4 mg PRN Q5MIN PRN SL Unstable Angina; Start at 08:15 Nystatin (Nystop) 1 bob PRN BID PRN TP RASH; Start 09/18/17 at 08:15 Polyethylene Glycol (miraLAX) 17 gm DAILY PO Last administered on 09/27/17 07: 58; Start 09/18/17 at 09:00 Potassium Chloride (Klor-Con) 20 meq DAILY PO Last administered on 09/27/17 07 :56; Start 09/18/17 at 09:00 Senna/Docusate Sodium (Senna Plus) 2 tab PRN QHS PRN PO CONSTIPATION; Start at 08:15 Carvedilol (Coreg) 25 mg BIDWMEALS PO Last administered on 09/27/17 07:57; Start 09/18/17 at 09:00 Zinc Sulfate (Orazinc) 220 mg DAILY PO Last administered on 09/27/17 07:56; Start 09/18/17 at 09:00 Non-Formulary Medication ([prostat] ) 30 ml BIDWMEALS PO ; Start 09/18/17 at 17: 00; Status UNV Bupropion HCl (Wellbutrin Xl) 150 mg DAILY PO Last administered on 09/22/17at 08 :22; Start 09/19/17 at 14:00; Stop 09/22/17 at 18:55; Status DC Magnesium Hydroxide (Milk Of Magnesia) 2,400 mg PRN DAILY PRN PO CONSTIPATION Last administered on 09/24/17at 12:06; Start 09/22/17 at 13:00 Multivitamins/ Minerals ([place]) 1 tab DAILY PO Last administered on 09/27/17 07:58; Start 09/23/17 at 09:00 Bupropion HCl (Wellbutrin Xl) 300 mg DAILY PO Last administered on 09/27/17 07 :57; Start 09/23/17 at 09:00; Stop 09/28/17 at 08:59 Trazodone HCl (Desyrel) 100 mg QHS PO Last administered on 09/27/17at 19:36; Start 09/22/17 at 21:00 Bupropion HCl (Wellbutrin Xl) 450 mg DAILY PO ; Start 09/28/17 at 09:00 Acetaminophen/ Hydrocodone Bitart (Lortab 5/325) 1 tab PRN Q4HRS PRN PO PAIN Last administered on 09/27/17at 09:12; Start 09/24/17 at 15:45 Vitamin D (Vitamin D3) 50,000 unit WEEKLY PO Last administered on 09/26/17at 16: 35; Start 09/26/17 at 16:00 Lorazepam (Ativan) 0.25 mg PRN Q4HRS PRN PO ANXIETY / AGITATION; Start at 18:15 Active Scripts Active Reported Furosemide 40 Mg Tablet 40 Mg PO DAILY Clopidogrel (Clopidogrel Bisulfate) 75 Mg Tablet 75 Mg PO DAILY Zinc Sulfate 220 Mg Tablet 220 Mg PO DAILY C-500 (Ascorbic Acid) 500 Mg Tablet 500 Mg PO DAILY Tylenol (Acetaminophen) 325 Mg Tablet 650 Mg PO PRN Q6HRS PRN Tramadol Hcl (Tramadol HCl) 50 Mg Tablet 100 Mg PO QHS Seroquel (Quetiapine Fumarate) 25 Mg Tablet 25 Mg PO BID Senna-Docusate Sodium Tablet (Sennosides/Docusate Sodium) 1 Each Tablet 2 Tab PO PRN QHS PRN [prostat] 30 Ml PO BIDWMEALS Klor-Con M20 (Potassium Chloride) 20 Meq Tab.er.prt 20 Meq PO DAILY Nystop (Nystatin) 60 Gm Powder 1 Bob TP PRN BID PRN [place] 5-325 Tablet (Hydrocodone Bit/Acetaminophen) 1 Each Tablet 1 Tab PO PRN Q6HRS PRN Nitrostat (Nitroglycerin) 0.4 Mg Tab.subl 0.4 Mg SL PRN Q5MIN PRN Maalox Advanced Suspension (Mag Hydrox/Aluminum Hyd/Simeth) 355 Ml Oral.susp 30 Ml PO PRN QID PRN Multivitamins With Minerals (Multivitamin With Minerals) 1 Each Tablet 1 Tab PO DAILY Miralax (Polyethylene Glycol 3350) 17 Gm Powd.pack 17 Gm PO DAILY Milk Of Magnesia (Magnesium Hydroxide) 2,400 Mg/10 Ml Oral.susp 2,400 Mg PO PRN QID PRN Melatonin 3 Mg Tablet 3 Mg PO PRN QHS PRN Lisinopril 5 Mg Tablet 5 Mg PO DAILY Lexapro (Escitalopram Oxalate) 10 Mg Tablet 10 Mg PO DAILY Fleet Enema (Na Phos,M-B/Na Phos,Di-Ba) 133 Ml Enema 133 Ml RC PRN DAILY PRN Eliquis (Apixaban) 5 Mg Tablet 5 Mg PO BIDWMEALS Coreg (Carvedilol) 25 Mg Tablet 25 Mg PO BIDWMEALS Bisacodyl 10 Mg Supp.rect 10 Mg RC PRN DAILY PRN Baclofen 10 Mg Tablet 10 Mg PO PRN Q6HRS PRN Atorvastatin Calcium 10 Mg Tablet 10 Mg PO QHS Amitriptyline Hcl 50 Mg Tablet 50 Mg PO HS Allopurinol 300 Mg Tablet 300 Mg PO DAILY I have reviewed the current psychotropics carefully including drug interactions. Risk benefit ratio favors no change other than as noted in my dictated progress note. Diagnosis: Problems: (1) Anxiety disorder (2) Major depressive disorder, recurrent episode (3) Mild cognitive impairment MARILY LARSON MD Sep 27, 2017 22:47
[2017-09-28 05:56] VITALS: BP 108/54
[2017-09-28] MEDS: HYDROcodone/APAP 5/325MG 1 TAB TABLET PO PRN ×2 (06:12→16:31)
[2017-09-28] MEDS: APIXABAN 5 MG TABLET. PO SCH ×2 (07:33→16:32)
[2017-09-28] MEDS: CLOPIDOGREL BISULFATE 75 MG TABLET PO SCH (07:33)
[2017-09-28] MEDS: CITALOPRAM 20 MG TABLET. PO SCH (07:33)
[2017-09-28] MEDS: POLYETHYLENE GLYCOL 3350 17 GM PACKET. PO SCH (07:33)
[2017-09-28] MEDS: CARVEDILOL 12.5 MG TABLET PO SCH ×3 (07:33→19:40)
[2017-09-28] MEDS: FUROSEMIDE 40 MG TABLET PO SCH (07:33)
[2017-09-28] MEDS: LISINOPRIL 5 MG TABLET. PO SCH (07:34)
[2017-09-28] MEDS: ZINC SULFATE 220 MG CAPSULE. PO SCH (07:34)
[2017-09-28] MEDS: ASCORBIC ACID 500 MG TABLET PO SCH (07:34)
[2017-09-28] MEDS: QUEtiapine 25 MG TABLET. PO SCH ×2 (07:34→19:35)
[2017-09-28] MEDS: MULTIVITAMIN I-VITE TABLET. PO SCH (07:34)
[2017-09-28] MEDS: ALLOPURINOL 300 MG TABLET. PO SCH (07:34)
[2017-09-28] MEDS: POTASSIUM CHLORIDE 20 MEQ TABLET.ER. PO SCH (07:34)
[2017-09-28] MEDS: buPROPion XL 150 MG TAB.ER.24H PO SCH (07:38)
[2017-09-28 15:24] VITALS: BP 96/70
--- NOTE | 2017-09-28 16:33 | PN ---
DATE: 09/26/2017 PSYCHIATRIC PROGRESS NOTE This is a late entry 09/26/2017, covers elements not covered in my initial note 09/26/2017. SUBJECTIVE: I met with the patient the evening of 09/26/2017. Per nursing report, the patient has been more demanding, irritable, wanting more pain meds, anxious. REVIEW OF SYSTEMS: Positive for pain in his bottom and heel area. Ambulation impaired, in wheelchair. No CV, , pulmonary, eye, ENT system symptoms on review. MENTAL STATUS EXAM: Reasonably oriented. Speech coherent, abstraction fair, computation impaired. Short term memory has impairment. No suicidal or homicidal ideation. Mood is depressed. Affect, mood can congruent. LABORATORY DATA: Reviewed. IMPRESSION: Major depressive disorder, cognitive disorder, unspecified. Rest unchanged. PLAN: Start Ativan 0.25 mg q. 4 hours p.r.n. anxiety, 1 mg in 24 hours, continue, rest unchanged including Wellbutrin XL 300 mg a day. MAN Tatiana LARSON MD DR: ALEXSANDER/ana maria JOB#: [id number] / [id number]
[2017-09-28] MEDS: ATORVASTATIN CALCIUM 10 MG TABLET. PO SCH (19:31)
[2017-09-28] MEDS: traZODone 100 MG TABLET. PO SCH (19:31)
[2017-09-28] MEDS: AMITRIPTYLINE HCL 50 MG TABLET PO SCH (19:34)
[2017-09-28] MEDS: MELATONIN 3 MG TABLET PO PRN (19:35)
[2017-09-28] MEDS: traMADol 50 MG TABLET PO SCH (19:39)
--- NOTE | 2017-09-28 21:57 | PDOC ---
Exam Note: Bon Note: Please also refer to the separate dictated note~for this date of service dictated separately.~Patient seen individually. Discussed the patient with Nursing staff reviewed the chart.~Reviewed interim history and current functioning. Reviewed vital signs,~Labs/ Radiology~and current medications noted below. Continue current treatment with the changes noted in the dictated addendum note Assessment: Vital Signs: Vital Signs Date Time Temp Pulse Resp B/P (MAP) Pulse Ox O2 Delivery O2 Flow Rate FiO2 09/28/17 19:40 74 96/70 09/28/17 17:31 20 98 Room Air 09/28/17 15:24 97.7 I&O Intake and Output 09/28/17 07:00 Intake Total 1800 ml Balance 1800 ml Intake Oral 1800 ml Labs: Laboratory Tests Test 09/28/17 07:24 Glucose (Fingerstick) 107 mg/dL (70-99) H Current Medications: Meds: Current Medications Ciprofloxacin (Cipro) 500 mg 1X ONCE PO ; Start 09/17/17 at 22:15; Stop at 22:30; Status DC Ciprofloxacin (Cipro) 500 mg 1X ONCE PO Last administered on 09/18/17at 00:08; Start 09/17/17 at 23:00; Stop 09/17/17 at 23:01; Status DC Multi-Ingredient Ointment (Analgesic [place]) 1 bob PRN QID PRN TP MUSCLE PAIN; Start 09/17/17 at 22:45 Amitriptyline HCl (Elavil) 50 mg HS PO Last administered on 09/28/17at 19:34; Start 09/18/17 at 21:00 Quetiapine Fumarate (SEROquel) 25 mg BID PO Last administered on 09/28/17at 19:35 ; Start 09/18/17 at 09:00 Citalopram Hydrobromide (CeleXA) 20 mg DAILY PO Last administered on 09/28/17at 07:33; Start 09/18/17 at 09:00 Melatonin 3 mg PRN QHS PRN PO INSOMNIA Last administered on 09/28/17at 19:35; Start 09/17/17 at 23:00 Tramadol HCl (Ultram) 100 mg QHS PO Last administered on 09/28/17at 19:39; Start 09/17/17 at 23:00 Acetaminophen (Tylenol) 650 mg PRN Q6HRS PRN PO PAIN / TEMP; Start 09/18/17 at 08:15 Allopurinol (Zyloprim) 300 mg DAILY PO Last administered on 09/28/17 07:34; Start 09/18/17 at 09:00 Apixaban (Eliquis) 5 mg BIDWMEALS PO Last administered on 09/28/17 16:32; Start 09/18/17 at 08:00 Ascorbic Acid (Vitamin C) 500 mg DAILY PO Last administered on 09/28/17 07:34; Start 09/18/17 at 09:00 Atorvastatin Calcium (Lipitor) 10 mg QHS PO Last administered on 09/28/17 19:31 ; Start 09/18/17 at 21:00 Baclofen (Lioresal) 10 mg PRN Q6HRS PRN PO Epileptic Spasms; Start 09/18/17 at 08:15 Bisacodyl (Dulcolax Supp) 10 mg PRN DAILY PRN RC CONSTIPATION Last administered on 09/25/17at 10:15; Start 09/18/17 at 08:15 Clopidogrel Bisulfate (Plavix) 75 mg DAILY PO Last administered on 09/28/17at 07: 33; Start 09/18/17 at 09:00 Furosemide (Lasix) 40 mg DAILY PO Last administered on 09/28/17 07:33; Start at 09:00 Acetaminophen/ Hydrocodone Bitart (Lortab 5/325) 1 tab PRN Q6HRS PRN PO PAIN Last administered on 09/24/17at 11:39; Start 09/18/17 at 08:15; Stop 09/24/17 at 15:38; Status DC Lisinopril (Prinivil) 5 mg DAILY PO Last administered on 09/28/17 07:34; Start 09/18/17 at 09:00 Sodium Biphosphate/ Sodium Phosphate (Fleet Adult) 133 ml PRN DAILY PRN RC CONSTIPATION; Start 09/18/17 at 08:15 Nitroglycerin (Nitrostat) 0.4 mg PRN Q5MIN PRN SL Unstable Angina; Start at 08:15 Nystatin (Nystop) 1 bob PRN BID PRN TP RASH; Start 09/18/17 at 08:15 Polyethylene Glycol (miraLAX) 17 gm DAILY PO Last administered on 09/28/17 07: 33; Start 09/18/17 at 09:00 Potassium Chloride (Klor-Con) 20 meq DAILY PO Last administered on 09/28/17 07: 34; Start 09/18/17 at 09:00 Senna/Docusate Sodium (Senna Plus) 2 tab PRN QHS PRN PO CONSTIPATION; Start at 08:15 Carvedilol (Coreg) 25 mg BIDWMEALS PO Last administered on 09/28/17 07:33; Start 09/18/17 at 09:00 Zinc Sulfate (Orazinc) 220 mg DAILY PO Last administered on 09/28/17 07:34; Start 09/18/17 at 09:00 Non-Formulary Medication ([prostat] ) 30 ml BIDWMEALS PO ; Start 09/18/17 at 17: 00; Status UNV Bupropion HCl (Wellbutrin Xl) 150 mg DAILY PO Last administered on 09/22/17 08 :22; Start 09/19/17 at 14:00; Stop 09/22/17 at 18:55; Status DC Magnesium Hydroxide (Milk Of Magnesia) 2,400 mg PRN DAILY PRN PO CONSTIPATION Last administered on 09/24/17 12:06; Start 09/22/17 at 13:00 Multivitamins/ Minerals (I-[place]) 1 tab DAILY PO Last administered on 09/28/17 07:34; Start 09/23/17 at 09:00 Bupropion HCl (Wellbutrin Xl) 300 mg DAILY PO Last administered on 09/27/17 07 :57; Start 09/23/17 at 09:00; Stop 09/28/17 at 09:00; Status DC Trazodone HCl (Desyrel) 100 mg QHS PO Last administered on 09/28/17 19:31; Start 09/22/17 at 21:00 Bupropion HCl (Wellbutrin Xl) 450 mg DAILY PO Last administered on 09/28/17 07: 38; Start 09/28/17 at 09:00 Acetaminophen/ Hydrocodone Bitart (Lortab 5/325) 1 tab PRN Q4HRS PRN PO PAIN Last administered on 09/28/17 16:31; Start 09/24/17 at 15:45 Vitamin D (Vitamin D3) 50,000 unit WEEKLY PO Last administered on 09/26/17at 16: 35; Start 09/26/17 at 16:00 Lorazepam (Ativan) 0.25 mg PRN Q4HRS PRN PO ANXIETY / AGITATION; Start at 18:15 Active Scripts Active Reported Furosemide 40 Mg Tablet 40 Mg PO DAILY Clopidogrel (Clopidogrel Bisulfate) 75 Mg Tablet 75 Mg PO DAILY Zinc Sulfate 220 Mg Tablet 220 Mg PO DAILY C-500 (Ascorbic Acid) 500 Mg Tablet 500 Mg PO DAILY Tylenol (Acetaminophen) 325 Mg Tablet 650 Mg PO PRN Q6HRS PRN Tramadol Hcl (Tramadol HCl) 50 Mg Tablet 100 Mg PO QHS Seroquel (Quetiapine Fumarate) 25 Mg Tablet 25 Mg PO BID Senna-Docusate Sodium Tablet (Sennosides/Docusate Sodium) 1 Each Tablet 2 Tab PO PRN QHS PRN [prostat] 30 Ml PO BIDWMEALS Klor-Con M20 (Potassium Chloride) 20 Meq Tab.er.prt 20 Meq PO DAILY Nystop (Nystatin) 60 Gm Powder 1 Bob TP PRN BID PRN [place] 5-325 Tablet (Hydrocodone Bit/Acetaminophen) 1 Each Tablet 1 Tab PO PRN Q6HRS PRN Nitrostat (Nitroglycerin) 0.4 Mg Tab.subl 0.4 Mg SL PRN Q5MIN PRN Maalox Advanced Suspension (Mag Hydrox/Aluminum Hyd/Simeth) 355 Ml Oral.susp 30 Ml PO PRN QID PRN Multivitamins With Minerals (Multivitamin With Minerals) 1 Each Tablet 1 Tab PO DAILY Miralax (Polyethylene Glycol 3350) 17 Gm Powd.pack 17 Gm PO DAILY Milk Of Magnesia (Magnesium Hydroxide) 2,400 Mg/10 Ml Oral.susp 2,400 Mg PO PRN QID PRN Melatonin 3 Mg Tablet 3 Mg PO PRN QHS PRN Lisinopril 5 Mg Tablet 5 Mg PO DAILY Lexapro (Escitalopram Oxalate) 10 Mg Tablet 10 Mg PO DAILY Fleet Enema (Na Phos,M-B/Na Phos,Di-Ba) 133 Ml Enema 133 Ml RC PRN DAILY PRN Eliquis (Apixaban) 5 Mg Tablet 5 Mg PO BIDWMEALS Coreg (Carvedilol) 25 Mg Tablet 25 Mg PO BIDWMEALS Bisacodyl 10 Mg Supp.rect 10 Mg RC PRN DAILY PRN Baclofen 10 Mg Tablet 10 Mg PO PRN Q6HRS PRN Atorvastatin Calcium 10 Mg Tablet 10 Mg PO QHS Amitriptyline Hcl 50 Mg Tablet 50 Mg PO HS Allopurinol 300 Mg Tablet 300 Mg PO DAILY I have reviewed the current psychotropics carefully including drug interactions. Risk benefit ratio favors no change other than as noted in my dictated progress note. Diagnosis: Problems: (1) Anxiety disorder (2) Major depressive disorder, recurrent episode (3) Mild cognitive impairment MARILY LARSON MD Sep 28, 2017 21:57
[2017-09-29 06:16] VITALS: BP 108/51
[2017-09-29] MEDS: ZINC SULFATE 220 MG CAPSULE. PO SCH (08:39)
[2017-09-29] MEDS: MULTIVITAMIN I-VITE TABLET. PO SCH (08:39)
[2017-09-29] MEDS: POLYETHYLENE GLYCOL 3350 17 GM PACKET. PO SCH (08:39)
[2017-09-29] MEDS: ASCORBIC ACID 500 MG TABLET PO SCH (08:40)
[2017-09-29] MEDS: QUEtiapine 25 MG TABLET. PO SCH ×2 (08:40→19:16)
[2017-09-29] MEDS: APIXABAN 5 MG TABLET. PO SCH ×2 (08:40→17:43)
[2017-09-29] MEDS: POTASSIUM CHLORIDE 20 MEQ TABLET.ER. PO SCH (08:40)
[2017-09-29] MEDS: CLOPIDOGREL BISULFATE 75 MG TABLET PO SCH (08:40)
[2017-09-29] MEDS: ALLOPURINOL 300 MG TABLET. PO SCH (08:40)
[2017-09-29] MEDS: buPROPion XL 150 MG TAB.ER.24H PO SCH (08:42)
[2017-09-29] MEDS: FUROSEMIDE 40 MG TABLET PO SCH (08:42)
[2017-09-29] MEDS: CITALOPRAM 20 MG TABLET. PO SCH (08:42)
[2017-09-29] MEDS: LISINOPRIL 5 MG TABLET. PO SCH (08:43)
--- NOTE | 2017-09-29 15:48 | PN ---
DATE: 09/27/2017 This late entry, 09/27/2017, covers elements not covered in my initial note of 09/27/2017. SUBJECTIVE: I met with the patient the evening of 09/27/2017. Earlier in the day in the morning, the patient had trouble with his meds. He was chewing them rather than swallowing them. In the afternoon, the nursing staff crushed his meds in chocolate pudding. He is quite upset about it. His ex- visited him and wants him discharged to skilled facility and social work staff coordinating this. Initially the patient was insistent on going home and we are starting a protocol to assist with this, though this did not seem to correct disposition and I am happy that he is convinced by his ex- to go to a skilled facility. Earlier in the day, he was also whistling at the nursing staff and telling them "you are hot." Ex- stated this is nothing different from what" all old man do." REVIEW OF SYSTEMS: Ambulation impaired, in Broda chair. Complains of some discomfort in his coccyx area. No CV, , pulmonary, eye, ENT system symptoms on review. MENTAL STATUS EXAM: Reasonably oriented. Speech coherent, very pleasant, verbally interactive with me. Abstraction fair, computation somewhat impaired, language function intact. Mood and affect is improved. LABORATORY DATA: Reviewed. IMPRESSION: Major depressive disorder, recurrent; cognitive disorder, unspecified. PLAN: Continue psychotropics mentioned in my initial note, Wellbutrin XL at 300 mg a day, may increase further prior to discharge. MAN Tatiana LARSON MD DR: ALEXSANDER/ana maria JOB#: [id number] / [id number]
[2017-09-29 15:51] VITALS: BP 119/67
[2017-09-29] MEDS: CARVEDILOL 12.5 MG TABLET PO SCH (17:43)
[2017-09-29] MEDS: traZODone 100 MG TABLET. PO SCH (19:16)
[2017-09-29] MEDS: ATORVASTATIN CALCIUM 10 MG TABLET. PO SCH (19:16)
[2017-09-29] MEDS: traMADol 50 MG TABLET PO SCH (19:19)
[2017-09-29] MEDS: AMITRIPTYLINE HCL 25 MG TABLET PO SCH (19:46)
--- NOTE | 2017-09-29 20:57 | PDOC ---
Exam Note: Bon Note: Please also refer to the separate dictated note~for this date of service dictated separately.~Patient seen individually. Discussed the patient with Nursing staff reviewed the chart.~Reviewed interim history and current functioning. Reviewed vital signs,~Labs/ Radiology~and current medications noted below. Continue current treatment with the changes noted in the dictated addendum note Assessment: Vital Signs: Vital Signs Date Time Temp Pulse Resp B/P (MAP) Pulse Ox O2 Delivery O2 Flow Rate FiO2 09/29/17 19:19 18 97 Room Air 09/29/17 17:43 77 119/67 09/29/17 15:51 97.8 I&O Intake and Output 09/29/17 07:00 Intake Total 720 ml Output Total 500 ml Balance 220 ml Intake Oral 720 ml Output Urine Total 500 ml # Voids 1 Labs: Laboratory Tests Test 09/29/17 07:24 Glucose (Fingerstick) 81 mg/dL (70-99) Current Medications: Meds: Current Medications Ciprofloxacin (Cipro) 500 mg 1X ONCE PO ; Start 09/17/17 at 22:15; Stop at 22:30; Status DC Ciprofloxacin (Cipro) 500 mg 1X ONCE PO Last administered on 09/18/17at 00:08; Start 09/17/17 at 23:00; Stop 09/17/17 at 23:01; Status DC Multi-Ingredient Ointment (Analgesic [place]) 1 bob PRN QID PRN TP MUSCLE PAIN; Start 09/17/17 at 22:45 Amitriptyline HCl (Elavil) 50 mg HS PO Last administered on 09/28/17at 19:34; Start 09/18/17 at 21:00; Stop 09/28/17 at 22:19; Status DC Quetiapine Fumarate (SEROquel) 25 mg BID PO Last administered on 09/29/17at 19:16 ; Start 09/18/17 at 09:00 Citalopram Hydrobromide (CeleXA) 20 mg DAILY PO Last administered on 09/29/17at 08:42; Start 09/18/17 at 09:00 Melatonin 3 mg PRN QHS PRN PO INSOMNIA Last administered on 09/28/17at 19:35; Start 09/17/17 at 23:00 Tramadol HCl (Ultram) 100 mg QHS PO Last administered on 09/29/17 19:19; Start 09/17/17 at 23:00 Acetaminophen (Tylenol) 650 mg PRN Q6HRS PRN PO PAIN / TEMP; Start 09/18/17 at 08:15 Allopurinol (Zyloprim) 300 mg DAILY PO Last administered on 09/29/17 08:40; Start 09/18/17 at 09:00 Apixaban (Eliquis) 5 mg BIDWMEALS PO Last administered on 09/29/17 17:43; Start 09/18/17 at 08:00 Ascorbic Acid (Vitamin C) 500 mg DAILY PO Last administered on 09/29/17 08:40; Start 09/18/17 at 09:00 Atorvastatin Calcium (Lipitor) 10 mg QHS PO Last administered on 09/29/17 19:16 ; Start 09/18/17 at 21:00 Baclofen (Lioresal) 10 mg PRN Q6HRS PRN PO Epileptic Spasms; Start 09/18/17 at 08:15 Bisacodyl (Dulcolax Supp) 10 mg PRN DAILY PRN RC CONSTIPATION Last administered on 09/25/17at 10:15; Start 09/18/17 at 08:15 Clopidogrel Bisulfate (Plavix) 75 mg DAILY PO Last administered on 09/29/17 08: 40; Start 09/18/17 at 09:00 Furosemide (Lasix) 40 mg DAILY PO Last administered on 09/29/17 08:42; Start at 09:00 Acetaminophen/ Hydrocodone Bitart (Lortab 5/325) 1 tab PRN Q6HRS PRN PO PAIN Last administered on 09/24/17at 11:39; Start 09/18/17 at 08:15; Stop 09/24/17 at 15:38; Status DC Lisinopril (Prinivil) 5 mg DAILY PO Last administered on 09/28/17 07:34; Start 09/18/17 at 09:00 Sodium Biphosphate/ Sodium Phosphate (Fleet Adult) 133 ml PRN DAILY PRN RC CONSTIPATION; Start 09/18/17 at 08:15 Nitroglycerin (Nitrostat) 0.4 mg PRN Q5MIN PRN SL Unstable Angina; Start at 08:15 Nystatin (Nystop) 1 bob PRN BID PRN TP RASH; Start 09/18/17 at 08:15 Polyethylene Glycol (miraLAX) 17 gm DAILY PO Last administered on 09/29/17 08: 39; Start 09/18/17 at 09:00 Potassium Chloride (Klor-Con) 20 meq DAILY PO Last administered on 09/29/17 08: 40; Start 09/18/17 at 09:00 Senna/Docusate Sodium (Senna Plus) 2 tab PRN QHS PRN PO CONSTIPATION; Start at 08:15 Carvedilol (Coreg) 25 mg BIDWMEALS PO Last administered on 09/29/17 17:43; Start 09/18/17 at 09:00 Zinc Sulfate (Orazinc) 220 mg DAILY PO Last administered on 09/29/17 08:39; Start 09/18/17 at 09:00 Non-Formulary Medication ([prostat] ) 30 ml BIDWMEALS PO ; Start 09/18/17 at 17: 00; Status UNV Bupropion HCl (Wellbutrin Xl) 150 mg DAILY PO Last administered on 09/22/17 08 :22; Start 09/19/17 at 14:00; Stop 09/22/17 at 18:55; Status DC Magnesium Hydroxide (Milk Of Magnesia) 2,400 mg PRN DAILY PRN PO CONSTIPATION Last administered on 09/24/17 12:06; Start 09/22/17 at 13:00 Multivitamins/ Minerals ([place]) 1 tab DAILY PO Last administered on 09/29/17 08:39; Start 09/23/17 at 09:00 Bupropion HCl (Wellbutrin Xl) 300 mg DAILY PO Last administered on 09/27/17 07 :57; Start 09/23/17 at 09:00; Stop 09/28/17 at 09:00; Status DC Trazodone HCl (Desyrel) 100 mg QHS PO Last administered on 09/29/17 19:16; Start 09/22/17 at 21:00 Bupropion HCl (Wellbutrin Xl) 450 mg DAILY PO Last administered on 09/29/17 08: 42; Start 09/28/17 at 09:00 Acetaminophen/ Hydrocodone Bitart (Lortab 5/325) 1 tab PRN Q4HRS PRN PO PAIN Last administered on 09/28/17at 16:31; Start 09/24/17 at 15:45 Vitamin D (Vitamin D3) 50,000 unit WEEKLY PO Last administered on 09/26/17at 16: 35; Start 09/26/17 at 16:00 Lorazepam (Ativan) 0.25 mg PRN Q4HRS PRN PO ANXIETY / AGITATION; Start at 18:15 Amitriptyline HCl (Elavil) 25 mg HS PO Last administered on 09/29/17at 19:46; Start 09/29/17 at 21:00 Active Scripts Active Reported Furosemide 40 Mg Tablet 40 Mg PO DAILY Clopidogrel (Clopidogrel Bisulfate) 75 Mg Tablet 75 Mg PO DAILY Zinc Sulfate 220 Mg Tablet 220 Mg PO DAILY C-500 (Ascorbic Acid) 500 Mg Tablet 500 Mg PO DAILY Tylenol (Acetaminophen) 325 Mg Tablet 650 Mg PO PRN Q6HRS PRN Tramadol Hcl (Tramadol HCl) 50 Mg Tablet 100 Mg PO QHS Seroquel (Quetiapine Fumarate) 25 Mg Tablet 25 Mg PO BID Senna-Docusate Sodium Tablet (Sennosides/Docusate Sodium) 1 Each Tablet 2 Tab PO PRN QHS PRN [prostat] 30 Ml PO BIDWMEALS Klor-Con M20 (Potassium Chloride) 20 Meq Tab.er.prt 20 Meq PO DAILY Nystop (Nystatin) 60 Gm Powder 1 Bob TP PRN BID PRN [place] 5-325 Tablet (Hydrocodone Bit/Acetaminophen) 1 Each Tablet 1 Tab PO PRN Q6HRS PRN Nitrostat (Nitroglycerin) 0.4 Mg Tab.subl 0.4 Mg SL PRN Q5MIN PRN Maalox Advanced Suspension (Mag Hydrox/Aluminum Hyd/Simeth) 355 Ml Oral.susp 30 Ml PO PRN QID PRN Multivitamins With Minerals (Multivitamin With Minerals) 1 Each Tablet 1 Tab PO DAILY Miralax (Polyethylene Glycol 3350) 17 Gm Powd.pack 17 Gm PO DAILY Milk Of Magnesia (Magnesium Hydroxide) 2,400 Mg/10 Ml Oral.susp 2,400 Mg PO PRN QID PRN Melatonin 3 Mg Tablet 3 Mg PO PRN QHS PRN Lisinopril 5 Mg Tablet 5 Mg PO DAILY Lexapro (Escitalopram Oxalate) 10 Mg Tablet 10 Mg PO DAILY Fleet Enema (Na Phos,M-B/Na Phos,Di-Ba) 133 Ml Enema 133 Ml RC PRN DAILY PRN Eliquis (Apixaban) 5 Mg Tablet 5 Mg PO BIDWMEALS Coreg (Carvedilol) 25 Mg Tablet 25 Mg PO BIDWMEALS Bisacodyl 10 Mg Supp.rect 10 Mg RC PRN DAILY PRN Baclofen 10 Mg Tablet 10 Mg PO PRN Q6HRS PRN Atorvastatin Calcium 10 Mg Tablet 10 Mg PO QHS Amitriptyline Hcl 50 Mg Tablet 50 Mg PO HS Allopurinol 300 Mg Tablet 300 Mg PO DAILY I have reviewed the current psychotropics carefully including drug interactions. Risk benefit ratio favors no change other than as noted in my dictated progress note. Diagnosis: Problems: (1) Anxiety disorder (2) Major depressive disorder, recurrent episode (3) Mild cognitive impairment MARILY LARSON MD Sep 29, 2017 20:57
--- NOTE | 2017-09-30 03:11 | PN ---
DATE: 09/28/2017 PSYCHIATRIC PROGRESS NOTE This is a late entry for 09/28/2016, covers elements not covered in my initial note of 09/28/2016. SUBJECTIVE: I met with the patient the evening of 09/28/2017. The patient has been doing better, still somewhat withdrawn, at times anxious, but he was very pleased that his heel is better. He is quite circumstantial about this. REVIEW OF SYSTEMS: Ambulation impaired, in Broda chair. No CV, , pulmonary, eye, ENT system symptoms on review. MENTAL STATUS EXAM: Oriented to himself and situation. Speech coherent, abstraction fair, computation impaired, language function intact, attention span short. Mood and affect remain somewhat depressed, but improved. LABORATORY DATA: Reviewed. IMPRESSION: Major depressive disorder with partial remission; anxiety disorder, unspecified; cognitive disorder, unspecified. PLAN: Continue psychotropics mentioned in my initial note. He is on Celexa along with Wellbutrin, the latter to augment the Celexa and amitriptyline 50 mg at bedtime. The amitriptyline is mainly for insomnia. We may drop the amitriptyline down to 25 mg at bedtime to see how he does and then decide if he needs it at all or not. MARILY LARSON MD DR: ALEXSANDER/ana maria JOB#: [id number] / [id number]
[2017-09-30 06:00] VITALS: BP 109/59
[2017-09-30] MEDS: MULTIVITAMIN I-VITE TABLET. PO SCH (08:07)
[2017-09-30] MEDS: POLYETHYLENE GLYCOL 3350 17 GM PACKET. PO SCH ×2 (08:07→08:34)
[2017-09-30] MEDS: POTASSIUM CHLORIDE 20 MEQ TABLET.ER. PO SCH (08:08)
[2017-09-30] MEDS: CITALOPRAM 20 MG TABLET. PO SCH (08:08)
[2017-09-30] MEDS: ALLOPURINOL 300 MG TABLET. PO SCH (08:08)
[2017-09-30] MEDS: APIXABAN 5 MG TABLET. PO SCH ×2 (08:08→17:16)
[2017-09-30] MEDS: ZINC SULFATE 220 MG CAPSULE. PO SCH (08:08)
[2017-09-30] MEDS: CLOPIDOGREL BISULFATE 75 MG TABLET PO SCH (08:09)
[2017-09-30] MEDS: FUROSEMIDE 40 MG TABLET PO SCH (08:09)
[2017-09-30] MEDS: QUEtiapine 25 MG TABLET. PO SCH ×2 (08:09→19:18)
[2017-09-30] MEDS: ASCORBIC ACID 500 MG TABLET PO SCH (08:09)
[2017-09-30] MEDS: LISINOPRIL 5 MG TABLET. PO SCH (08:09)
[2017-09-30] MEDS: CARVEDILOL 12.5 MG TABLET PO SCH ×2 (08:10→17:16)
[2017-09-30] MEDS: ACETAMINOPHEN 325 MG TABLET PO PRN (08:12)
[2017-09-30] MEDS: buPROPion XL 150 MG TAB.ER.24H PO SCH (08:12)
[2017-09-30] MEDS: HYDROcodone/APAP 5/325MG 1 TAB TABLET PO PRN (13:45)
[2017-09-30 15:35] VITALS: BP 104/70
[2017-09-30] MEDS: AMITRIPTYLINE HCL 25 MG TABLET PO SCH (19:17)
[2017-09-30] MEDS: ATORVASTATIN CALCIUM 10 MG TABLET. PO SCH (19:18)
[2017-09-30] MEDS: traZODone 100 MG TABLET. PO SCH (19:18)
[2017-09-30] MEDS: traMADol 50 MG TABLET PO SCH (19:20)
--- NOTE | 2017-09-30 20:55 | PDOC ---
Exam Note: Bon Note: Please also refer to the separate dictated note~for this date of service dictated separately.~Patient seen individually. Discussed the patient with Nursing staff reviewed the chart.~Reviewed interim history and current functioning. Reviewed vital signs,~Labs/ Radiology~and current medications noted below. Continue current treatment with the changes noted in the dictated addendum note Assessment: Vital Signs: Vital Signs Date Time Temp Pulse Resp B/P (MAP) Pulse Ox O2 Delivery O2 Flow Rate FiO2 09/30/17 19:20 18 97 Room Air 09/30/17 17:16 76 104/70 09/30/17 15:35 97.9 I&O Intake and Output 09/30/17 07:00 Intake Total 600 ml Output Total 600 ml Balance 0 ml Intake Oral 600 ml Output Urine Total 600 ml # Voids 1 Labs: Laboratory Tests Test 09/30/17 07:43 Glucose (Fingerstick) 85 mg/dL (70-99) Current Medications: Meds: Current Medications Ciprofloxacin (Cipro) 500 mg 1X ONCE PO ; Start 09/17/17 at 22:15; Stop at 22:30; Status DC Ciprofloxacin (Cipro) 500 mg 1X ONCE PO Last administered on 09/18/17at 00:08; Start 09/17/17 at 23:00; Stop 09/17/17 at 23:01; Status DC Multi-Ingredient Ointment (Analgesic [place]) 1 bob PRN QID PRN TP MUSCLE PAIN; Start 09/17/17 at 22:45 Amitriptyline HCl (Elavil) 50 mg HS PO Last administered on 09/28/17at 19:34; Start 09/18/17 at 21:00; Stop 09/28/17 at 22:19; Status DC Quetiapine Fumarate (SEROquel) 25 mg BID PO Last administered on 09/30/17at 19:18 ; Start 09/18/17 at 09:00 Citalopram Hydrobromide (CeleXA) 20 mg DAILY PO Last administered on 09/30/17at 08:08; Start 09/18/17 at 09:00 Melatonin 3 mg PRN QHS PRN PO INSOMNIA Last administered on 09/28/17at 19:35; Start 09/17/17 at 23:00 Tramadol HCl (Ultram) 100 mg QHS PO Last administered on 09/30/17 19:20; Start 09/17/17 at 23:00 Acetaminophen (Tylenol) 650 mg PRN Q6HRS PRN PO PAIN / TEMP Last administered on 09/30/17 08:12; Start 09/18/17 at 08:15 Allopurinol (Zyloprim) 300 mg DAILY PO Last administered on 09/30/17 08:08; Start 09/18/17 at 09:00 Apixaban (Eliquis) 5 mg BIDWMEALS PO Last administered on 09/30/17 17:16; Start 09/18/17 at 08:00 Ascorbic Acid (Vitamin C) 500 mg DAILY PO Last administered on 09/30/17 08:09; Start 09/18/17 at 09:00 Atorvastatin Calcium (Lipitor) 10 mg QHS PO Last administered on 09/30/17 19:18 ; Start 09/18/17 at 21:00 Baclofen (Lioresal) 10 mg PRN Q6HRS PRN PO Epileptic Spasms; Start 09/18/17 at 08:15 Bisacodyl (Dulcolax Supp) 10 mg PRN DAILY PRN RC CONSTIPATION Last administered on 09/25/17 10:15; Start 09/18/17 at 08:15 Clopidogrel Bisulfate (Plavix) 75 mg DAILY PO Last administered on 09/30/17 08: 09; Start 09/18/17 at 09:00 Furosemide (Lasix) 40 mg DAILY PO Last administered on 09/30/17 08:09; Start at 09:00 Acetaminophen/ Hydrocodone Bitart (Lortab 5/325) 1 tab PRN Q6HRS PRN PO PAIN Last administered on 09/24/17 11:39; Start 09/18/17 at 08:15; Stop 09/24/17 at 15:38; Status DC Lisinopril (Prinivil) 5 mg DAILY PO Last administered on 09/30/17 08:09; Start 09/18/17 at 09:00 Sodium Biphosphate/ Sodium Phosphate (Fleet Adult) 133 ml PRN DAILY PRN RC CONSTIPATION; Start 09/18/17 at 08:15 Nitroglycerin (Nitrostat) 0.4 mg PRN Q5MIN PRN SL Unstable Angina; Start at 08:15 Nystatin (Nystop) 1 bob PRN BID PRN TP RASH; Start 09/18/17 at 08:15 Polyethylene Glycol (miraLAX) 17 gm DAILY PO Last administered on 09/29/17 08: 39; Start 09/18/17 at 09:00 Potassium Chloride (Klor-Con) 20 meq DAILY PO Last administered on 09/30/17 08: 08; Start 09/18/17 at 09:00 Senna/Docusate Sodium (Senna Plus) 2 tab PRN QHS PRN PO CONSTIPATION; Start at 08:15 Carvedilol (Coreg) 25 mg BIDWMEALS PO Last administered on 09/30/17 17:16; Start 09/18/17 at 09:00 Zinc Sulfate (Orazinc) 220 mg DAILY PO Last administered on 09/30/17 08:08; Start 09/18/17 at 09:00 Non-Formulary Medication ([prostat] ) 30 ml BIDWMEALS PO ; Start 09/18/17 at 17: 00; Status UNV Bupropion HCl (Wellbutrin Xl) 150 mg DAILY PO Last administered on 09/22/17 08 :22; Start 09/19/17 at 14:00; Stop 09/22/17 at 18:55; Status DC Magnesium Hydroxide (Milk Of Magnesia) 2,400 mg PRN DAILY PRN PO CONSTIPATION Last administered on 09/24/17 12:06; Start 09/22/17 at 13:00 Multivitamins/ Minerals ([place]) 1 tab DAILY PO Last administered on 09/30/17 08:07; Start 09/23/17 at 09:00 Bupropion HCl (Wellbutrin Xl) 300 mg DAILY PO Last administered on 09/27/17 07 :57; Start 09/23/17 at 09:00; Stop 09/28/17 at 09:00; Status DC Trazodone HCl (Desyrel) 100 mg QHS PO Last administered on 09/30/17 19:18; Start 09/22/17 at 21:00 Bupropion HCl (Wellbutrin Xl) 450 mg DAILY PO Last administered on 09/30/17 08: 12; Start 09/28/17 at 09:00 Acetaminophen/ Hydrocodone Bitart (Lortab 5/325) 1 tab PRN Q4HRS PRN PO PAIN Last administered on 09/30/17at 13:45; Start 09/24/17 at 15:45 Vitamin D (Vitamin D3) 50,000 unit WEEKLY PO Last administered on 09/26/17at 16: 35; Start 09/26/17 at 16:00 Lorazepam (Ativan) 0.25 mg PRN Q4HRS PRN PO ANXIETY / AGITATION; Start at 18:15 Amitriptyline HCl (Elavil) 25 mg HS PO Last administered on 09/30/17at 19:17; Start 09/29/17 at 21:00 Active Scripts Active Reported Furosemide 40 Mg Tablet 40 Mg PO DAILY Clopidogrel (Clopidogrel Bisulfate) 75 Mg Tablet 75 Mg PO DAILY Zinc Sulfate 220 Mg Tablet 220 Mg PO DAILY C-500 (Ascorbic Acid) 500 Mg Tablet 500 Mg PO DAILY Tylenol (Acetaminophen) 325 Mg Tablet 650 Mg PO PRN Q6HRS PRN Tramadol Hcl (Tramadol HCl) 50 Mg Tablet 100 Mg PO QHS Seroquel (Quetiapine Fumarate) 25 Mg Tablet 25 Mg PO BID Senna-Docusate Sodium Tablet (Sennosides/Docusate Sodium) 1 Each Tablet 2 Tab PO PRN QHS PRN [prostat] 30 Ml PO BIDWMEALS Klor-Con M20 (Potassium Chloride) 20 Meq Tab.er.prt 20 Meq PO DAILY Nystop (Nystatin) 60 Gm Powder 1 Bob TP PRN BID PRN [place] 5-325 Tablet (Hydrocodone Bit/Acetaminophen) 1 Each Tablet 1 Tab PO PRN Q6HRS PRN Nitrostat (Nitroglycerin) 0.4 Mg Tab.subl 0.4 Mg SL PRN Q5MIN PRN Maalox Advanced Suspension (Mag Hydrox/Aluminum Hyd/Simeth) 355 Ml Oral.susp 30 Ml PO PRN QID PRN Multivitamins With Minerals (Multivitamin With Minerals) 1 Each Tablet 1 Tab PO DAILY Miralax (Polyethylene Glycol 3350) 17 Gm Powd.pack 17 Gm PO DAILY Milk Of Magnesia (Magnesium Hydroxide) 2,400 Mg/10 Ml Oral.susp 2,400 Mg PO PRN QID PRN Melatonin 3 Mg Tablet 3 Mg PO PRN QHS PRN Lisinopril 5 Mg Tablet 5 Mg PO DAILY Lexapro (Escitalopram Oxalate) 10 Mg Tablet 10 Mg PO DAILY Fleet Enema (Na Phos,M-B/Na Phos,Di-Ba) 133 Ml Enema 133 Ml RC PRN DAILY PRN Eliquis (Apixaban) 5 Mg Tablet 5 Mg PO BIDWMEALS Coreg (Carvedilol) 25 Mg Tablet 25 Mg PO BIDWMEALS Bisacodyl 10 Mg Supp.rect 10 Mg RC PRN DAILY PRN Baclofen 10 Mg Tablet 10 Mg PO PRN Q6HRS PRN Atorvastatin Calcium 10 Mg Tablet 10 Mg PO QHS Amitriptyline Hcl 50 Mg Tablet 50 Mg PO HS Allopurinol 300 Mg Tablet 300 Mg PO DAILY I have reviewed the current psychotropics carefully including drug interactions. Risk benefit ratio favors no change other than as noted in my dictated progress note. Diagnosis: Problems: (1) Anxiety disorder (2) Major depressive disorder, recurrent episode (3) Mild cognitive impairment MARILY LARSON MD Sep 30, 2017 20:55
--- NOTE | 2017-09-30 21:22 | PN ---
DATE: 09/29/2017 This is a late entry for 09/29/2017 covers elements not covered in my initial note of 09/29/2017. SUBJECTIVE: I met with the patient in the evening of 09/29/2017. The patient slept 6-1/2 hours previous evening, somewhat sarcastic, labile, anxious, sexually inappropriate with nursing staff in the morning, demanding and snarky per nursing report. REVIEW OF SYSTEMS: Ambulation impaired, in Broda chair. No CV, , pulmonary, eye system symptoms on review. Complains of some discomfort in lower extremity, but improved. MENTAL STATUS EXAM: Oriented to himself and situation. Speech is coherent, abstraction fair, computation somewhat impaired, language function intact, attention span short. Mood and affect is improved. LABORATORY DATA: Reviewed. 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 Rest unchanged. PLAN: Continue psychotropics mentioned in my initial note. MAN Tatiana LARSON MD DR: ALEXSANDER/ana maria JOB#: [id number] / [id number]
[2017-10-01] MEDS: CARVEDILOL 12.5 MG TABLET PO SCH ×2 (08:00→17:00)
[2017-10-01] MEDS: ASCORBIC ACID 500 MG TABLET PO SCH (08:39)
[2017-10-01] MEDS: QUEtiapine 25 MG TABLET. PO SCH ×2 (08:39→19:46)
[2017-10-01] MEDS: MULTIVITAMIN I-VITE TABLET. PO SCH (08:39)
[2017-10-01] MEDS: FUROSEMIDE 40 MG TABLET PO SCH (08:39)
[2017-10-01] MEDS: ZINC SULFATE 220 MG CAPSULE. PO SCH (08:39)
[2017-10-01] MEDS: CLOPIDOGREL BISULFATE 75 MG TABLET PO SCH (08:39)
[2017-10-01] MEDS: POTASSIUM CHLORIDE 20 MEQ TABLET.ER. PO SCH (08:39)
[2017-10-01] MEDS: CITALOPRAM 20 MG TABLET. PO SCH (08:40)
[2017-10-01] MEDS: POLYETHYLENE GLYCOL 3350 17 GM PACKET. PO SCH (08:40)
[2017-10-01] MEDS: APIXABAN 5 MG TABLET. PO SCH ×2 (08:40→17:40)
[2017-10-01] MEDS: ALLOPURINOL 300 MG TABLET. PO SCH (08:42)
[2017-10-01] MEDS: LISINOPRIL 5 MG TABLET. PO SCH (08:46)
[2017-10-01] MEDS: buPROPion XL 150 MG TAB.ER.24H PO SCH (08:46)
[2017-10-01] MEDS: HYDROcodone/APAP 5/325MG 1 TAB TABLET PO PRN (08:48)
[2017-10-01 09:00] VITALS: BP 115/60
[2017-10-01 16:04] VITALS: BP 105/67
[2017-10-01] MEDS: AMITRIPTYLINE HCL 25 MG TABLET PO SCH (19:46)
[2017-10-01] MEDS: traZODone 100 MG TABLET. PO SCH (19:46)
[2017-10-01] MEDS: ATORVASTATIN CALCIUM 10 MG TABLET. PO SCH (19:46)
[2017-10-01] MEDS: traMADol 50 MG TABLET PO SCH (19:47)
--- NOTE | 2017-10-01 20:50 | PN ---
DATE: 09/30/2017 PSYCHIATRIC PROGRESS NOTE This late entry of 09/30/2017 covers elements not covered in my initial note of 09/30/2017. I met with the patient evening of 09/30/2017. SUBJECTIVE: The patient slept 5 hours previous evening, compliant with his medications, somewhat sarcastic with nursing staff, making sexually inappropriate comments, demanding regarding different needs, but compliant with his medications. REVIEW OF SYSTEMS: Ambulation impaired, in Broda chair. Complains of some pain in his bottom. No CV, , pulmonary, eye system symptoms on review. MENTAL STATUS EXAM: Reasonably oriented. Speech is coherent, has some latency. Abstraction fair, computation impaired, language function intact, attention span short. Mood and affect still somewhat dysphoric, anxious, showing improvement. LABORATORY DATA: Reviewed. IMPRESSION: Major depressive disorder, in partial remission; cognitive disorder, unspecified. PLAN: Continue current psychotropics, Wellbutrin is being used to augment the Celexa and amitriptyline is essentially for insomnia and anxiety symptoms. Adjust further as clinically indicated. MAN Tatiana LARSON MD DR: ALEXSANDER/ana maria JOB#: [id number] / [id number]
--- NOTE | 2017-10-01 20:54 | PDOC ---
Exam Note: Bon Note: Please also refer to the separate dictated note~for this date of service dictated separately.~Patient seen individually. Discussed the patient with Nursing staff reviewed the chart.~Reviewed interim history and current functioning. Reviewed vital signs,~Labs/ Radiology~and current medications noted below. Continue current treatment with the changes noted in the dictated addendum note Assessment: Vital Signs: Vital Signs Date Time Temp Pulse Resp B/P (MAP) Pulse Ox O2 Delivery O2 Flow Rate FiO2 10/01/17 19:47 18 96 Room Air 10/01/17 17:00 73 105/67 10/01/17 16:04 97.5 I&O Intake and Output 10/01/17 07:00 Intake Total 1200 ml Balance 1200 ml Intake Oral 1200 ml # Voids 1 Labs: Laboratory Tests Test 10/01/17 07:06 Glucose (Fingerstick) 95 mg/dL (70-99) Current Medications: Meds: Current Medications Ciprofloxacin (Cipro) 500 mg 1X ONCE PO ; Start 09/17/17 at 22:15; Stop at 22:30; Status DC Ciprofloxacin (Cipro) 500 mg 1X ONCE PO Last administered on 09/18/17at 00:08; Start 09/17/17 at 23:00; Stop 09/17/17 at 23:01; Status DC Multi-Ingredient Ointment (Analgesic [place]) 1 bob PRN QID PRN TP MUSCLE PAIN; Start 09/17/17 at 22:45 Amitriptyline HCl (Elavil) 50 mg HS PO Last administered on 09/28/17 19:34; Start 09/18/17 at 21:00; Stop 09/28/17 at 22:19; Status DC Quetiapine Fumarate (SEROquel) 25 mg BID PO Last administered on 10/01/17 19:46 ; Start 09/18/17 at 09:00 Citalopram Hydrobromide (CeleXA) 20 mg DAILY PO Last administered on 10/01/17 08:40; Start 09/18/17 at 09:00 Melatonin 3 mg PRN QHS PRN PO INSOMNIA Last administered on 09/28/17 19:35; Start 09/17/17 at 23:00 Tramadol HCl (Ultram) 100 mg QHS PO Last administered on 4/4/18at 19:47; Start 09/17/17 at 23:00 Acetaminophen (Tylenol) 650 mg PRN Q6HRS PRN PO PAIN / TEMP Last administered on 09/30/17 08:12; Start 09/18/17 at 08:15 Allopurinol (Zyloprim) 300 mg DAILY PO Last administered on 10/01/17 08:42; Start 09/18/17 at 09:00 Apixaban (Eliquis) 5 mg BIDWMEALS PO Last administered on 10/01/17 17:40; Start 09/18/17 at 08:00 Ascorbic Acid (Vitamin C) 500 mg DAILY PO Last administered on 10/01/17 08:39; Start 09/18/17 at 09:00 Atorvastatin Calcium (Lipitor) 10 mg QHS PO Last administered on 10/01/17 19:46 ; Start 09/18/17 at 21:00 Baclofen (Lioresal) 10 mg PRN Q6HRS PRN PO Epileptic Spasms; Start 09/18/17 at 08:15 Bisacodyl (Dulcolax Supp) 10 mg PRN DAILY PRN RC CONSTIPATION Last administered on 09/25/17 10:15; Start 09/18/17 at 08:15 Clopidogrel Bisulfate (Plavix) 75 mg DAILY PO Last administered on 10/01/17 08: 39; Start 09/18/17 at 09:00 Furosemide (Lasix) 40 mg DAILY PO Last administered on 10/01/17 08:39; Start at 09:00 Acetaminophen/ Hydrocodone Bitart (Lortab 5/325) 1 tab PRN Q6HRS PRN PO PAIN Last administered on 09/24/17 11:39; Start 09/18/17 at 08:15; Stop 09/24/17 at 15:38; Status DC Lisinopril (Prinivil) 5 mg DAILY PO Last administered on 10/01/17 08:46; Start 09/18/17 at 09:00 Sodium Biphosphate/ Sodium Phosphate (Fleet Adult) 133 ml PRN DAILY PRN RC CONSTIPATION; Start 09/18/17 at 08:15 Nitroglycerin (Nitrostat) 0.4 mg PRN Q5MIN PRN SL Unstable Angina; Start at 08:15 Nystatin (Nystop) 1 bob PRN BID PRN TP RASH; Start 09/18/17 at 08:15 Polyethylene Glycol (miraLAX) 17 gm DAILY PO Last administered on 10/01/17 08: 40; Start 09/18/17 at 09:00 Potassium Chloride (Klor-Con) 20 meq DAILY PO Last administered on 10/01/17 08: 39; Start 09/18/17 at 09:00 Senna/Docusate Sodium (Senna Plus) 2 tab PRN QHS PRN PO CONSTIPATION; Start at 08:15 Carvedilol (Coreg) 25 mg BIDWMEALS PO Last administered on 09/30/17 17:16; Start 09/18/17 at 09:00 Zinc Sulfate (Orazinc) 220 mg DAILY PO Last administered on 10/01/17 08:39; Start 09/18/17 at 09:00 Non-Formulary Medication ([prostat] ) 30 ml BIDWMEALS PO ; Start 09/18/17 at 17: 00; Status UNV Bupropion HCl (Wellbutrin Xl) 150 mg DAILY PO Last administered on 09/22/17 08 :22; Start 09/19/17 at 14:00; Stop 09/22/17 at 18:55; Status DC Magnesium Hydroxide (Milk Of Magnesia) 2,400 mg PRN DAILY PRN PO CONSTIPATION Last administered on 09/24/17 12:06; Start 09/22/17 at 13:00 Multivitamins/ Minerals ([place]) 1 tab DAILY PO Last administered on 10/01/17 08:39; Start 09/23/17 at 09:00 Bupropion HCl (Wellbutrin Xl) 300 mg DAILY PO Last administered on 09/27/17 07 :57; Start 09/23/17 at 09:00; Stop 09/28/17 at 09:00; Status DC Trazodone HCl (Desyrel) 100 mg QHS PO Last administered on 10/01/17 19:46; Start 09/22/17 at 21:00 Bupropion HCl (Wellbutrin Xl) 450 mg DAILY PO Last administered on 10/01/17 08: 46; Start 09/28/17 at 09:00 Acetaminophen/ Hydrocodone Bitart (Lortab 5/325) 1 tab PRN Q4HRS PRN PO PAIN Last administered on 10/01/17at 08:48; Start 09/24/17 at 15:45 Vitamin D (Vitamin D3) 50,000 unit WEEKLY PO Last administered on 09/26/17at 16: 35; Start 09/26/17 at 16:00 Lorazepam (Ativan) 0.25 mg PRN Q4HRS PRN PO ANXIETY / AGITATION; Start at 18:15 Amitriptyline HCl (Elavil) 25 mg HS PO Last administered on 10/01/17at 19:46; Start 09/29/17 at 21:00 Active Scripts Active Reported Furosemide 40 Mg Tablet 40 Mg PO DAILY Clopidogrel (Clopidogrel Bisulfate) 75 Mg Tablet 75 Mg PO DAILY Zinc Sulfate 220 Mg Tablet 220 Mg PO DAILY C-500 (Ascorbic Acid) 500 Mg Tablet 500 Mg PO DAILY Tylenol (Acetaminophen) 325 Mg Tablet 650 Mg PO PRN Q6HRS PRN Tramadol Hcl (Tramadol HCl) 50 Mg Tablet 100 Mg PO QHS Seroquel (Quetiapine Fumarate) 25 Mg Tablet 25 Mg PO BID Senna-Docusate Sodium Tablet (Sennosides/Docusate Sodium) 1 Each Tablet 2 Tab PO PRN QHS PRN [prostat] 30 Ml PO BIDWMEALS Klor-Con M20 (Potassium Chloride) 20 Meq Tab.er.prt 20 Meq PO DAILY Nystop (Nystatin) 60 Gm Powder 1 Bob TP PRN BID PRN [place] 5-325 Tablet (Hydrocodone Bit/Acetaminophen) 1 Each Tablet 1 Tab PO PRN Q6HRS PRN Nitrostat (Nitroglycerin) 0.4 Mg Tab.subl 0.4 Mg SL PRN Q5MIN PRN Maalox Advanced Suspension (Mag Hydrox/Aluminum Hyd/Simeth) 355 Ml Oral.susp 30 Ml PO PRN QID PRN Multivitamins With Minerals (Multivitamin With Minerals) 1 Each Tablet 1 Tab PO DAILY Miralax (Polyethylene Glycol 3350) 17 Gm Powd.pack 17 Gm PO DAILY Milk Of Magnesia (Magnesium Hydroxide) 2,400 Mg/10 Ml Oral.susp 2,400 Mg PO PRN QID PRN Melatonin 3 Mg Tablet 3 Mg PO PRN QHS PRN Lisinopril 5 Mg Tablet 5 Mg PO DAILY Lexapro (Escitalopram Oxalate) 10 Mg Tablet 10 Mg PO DAILY Fleet Enema (Na Phos,M-B/Na Phos,Di-Ba) 133 Ml Enema 133 Ml RC PRN DAILY PRN Eliquis (Apixaban) 5 Mg Tablet 5 Mg PO BIDWMEALS Coreg (Carvedilol) 25 Mg Tablet 25 Mg PO BIDWMEALS Bisacodyl 10 Mg Supp.rect 10 Mg RC PRN DAILY PRN Baclofen 10 Mg Tablet 10 Mg PO PRN Q6HRS PRN Atorvastatin Calcium 10 Mg Tablet 10 Mg PO QHS Amitriptyline Hcl 50 Mg Tablet 50 Mg PO HS Allopurinol 300 Mg Tablet 300 Mg PO DAILY I have reviewed the current psychotropics carefully including drug interactions. Risk benefit ratio favors no change other than as noted in my dictated progress note. Diagnosis: Problems: (1) Anxiety disorder (2) Major depressive disorder, recurrent episode (3) Mild cognitive impairment MARILY LARSON MD Oct 01, 2017 20:54
[2017-10-02] MEDS ORDERED: LORA0.5T PO (00:59)
[2017-10-02] MEDS ORDERED: CHOL500021 PO (00:59)
[2017-10-02] MEDS ORDERED: METH29OI TP (01:00)
[2017-10-02] MEDS ORDERED: TRAZ-90 PO (01:01)
[2017-10-02] MEDS ORDERED: BUPR300T4 PO (01:01)
[2017-10-02] MEDS ORDERED: AMIT25TA PO (01:02)
[2017-10-02 05:46] VITALS: BP 106/66
[2017-10-02] MEDS: CLOPIDOGREL BISULFATE 75 MG TABLET PO SCH (08:18)
[2017-10-02] MEDS: POTASSIUM CHLORIDE 20 MEQ TABLET.ER. PO SCH (08:18)
[2017-10-02] MEDS: APIXABAN 5 MG TABLET. PO SCH ×2 (08:18→17:03)
[2017-10-02] MEDS: QUEtiapine 25 MG TABLET. PO SCH ×2 (08:18→19:27)
[2017-10-02] MEDS: ZINC SULFATE 220 MG CAPSULE. PO SCH (08:18)
[2017-10-02] MEDS: buPROPion XL 150 MG TAB.ER.24H PO SCH (08:18)
[2017-10-02] MEDS: MULTIVITAMIN I-VITE TABLET. PO SCH (08:18)
[2017-10-02] MEDS: POLYETHYLENE GLYCOL 3350 17 GM PACKET. PO SCH ×2 (08:18→09:00)
[2017-10-02] MEDS: ASCORBIC ACID 500 MG TABLET PO SCH (08:18)
[2017-10-02] MEDS: ALLOPURINOL 300 MG TABLET. PO SCH (08:19)
[2017-10-02] MEDS: FUROSEMIDE 40 MG TABLET PO SCH (08:19)
[2017-10-02] MEDS: CITALOPRAM 20 MG TABLET. PO SCH (08:19)
[2017-10-02] MEDS: LISINOPRIL 5 MG TABLET. PO SCH (08:19)
[2017-10-02] MEDS: CARVEDILOL 12.5 MG TABLET PO SCH ×2 (08:21→17:00)
[2017-10-02] MEDS: HYDROcodone/APAP 5/325MG 1 TAB TABLET PO PRN (11:46)
[2017-10-02 16:23] VITALS: BP 101/56
[2017-10-02] MEDS: AMITRIPTYLINE HCL 25 MG TABLET PO SCH (19:27)
[2017-10-02] MEDS: traZODone 100 MG TABLET. PO SCH (19:27)
[2017-10-02] MEDS: ATORVASTATIN CALCIUM 10 MG TABLET. PO SCH (19:27)
[2017-10-02] MEDS: traMADol 50 MG TABLET PO SCH (19:31)
--- NOTE | 2017-10-02 20:52 | PDOC ---
Exam Note: Bon Note: Please also refer to the separate dictated note~for this date of service dictated separately.~Patient seen individually. Discussed the patient with Nursing staff reviewed the chart.~Reviewed interim history and current functioning. Reviewed vital signs,~Labs/ Radiology~and current medications noted below. Continue current treatment with the changes noted in the dictated addendum note Assessment: Vital Signs: Vital Signs Date Time Temp Pulse Resp B/P (MAP) Pulse Ox O2 Delivery O2 Flow Rate FiO2 10/02/17 19:31 18 Room Air 10/02/17 17:00 74 101/56 10/02/17 16:23 97.3 95 I&O Intake and Output 10/02/17 07:00 Intake Total 1320 ml Balance 1320 ml Intake Oral 1320 ml # Voids 1 Labs: Laboratory Tests Test 10/02/17 07:11 Glucose (Fingerstick) 91 mg/dL (70-99) Current Medications: Meds: Current Medications Ciprofloxacin (Cipro) 500 mg 1X ONCE PO ; Start 09/17/17 at 22:15; Stop at 22:30; Status DC Ciprofloxacin (Cipro) 500 mg 1X ONCE PO Last administered on 09/18/17at 00:08; Start 09/17/17 at 23:00; Stop 09/17/17 at 23:01; Status DC Multi-Ingredient Ointment (Analgesic [place]) 1 bob PRN QID PRN TP MUSCLE PAIN; Start 09/17/17 at 22:45 Amitriptyline HCl (Elavil) 50 mg HS PO Last administered on 09/28/17 19:34; Start 09/18/17 at 21:00; Stop 09/28/17 at 22:19; Status DC Quetiapine Fumarate (SEROquel) 25 mg BID PO Last administered on 10/02/17 19:27 ; Start 09/18/17 at 09:00 Citalopram Hydrobromide (CeleXA) 20 mg DAILY PO Last administered on 10/02/17 08:19; Start 09/18/17 at 09:00 Melatonin 3 mg PRN QHS PRN PO INSOMNIA Last administered on 09/28/17at 19:35; Start 09/17/17 at 23:00 Tramadol HCl (Ultram) 100 mg QHS PO Last administered on 10/02/17 19:31; Start 09/17/17 at 23:00 Acetaminophen (Tylenol) 650 mg PRN Q6HRS PRN PO PAIN / TEMP Last administered on 09/30/17 08:12; Start 09/18/17 at 08:15 Allopurinol (Zyloprim) 300 mg DAILY PO Last administered on 10/02/17 08:19; Start 09/18/17 at 09:00 Apixaban (Eliquis) 5 mg BIDWMEALS PO Last administered on 10/02/17 17:03; Start 09/18/17 at 08:00 Ascorbic Acid (Vitamin C) 500 mg DAILY PO Last administered on 10/02/17 08:18; Start 09/18/17 at 09:00 Atorvastatin Calcium (Lipitor) 10 mg QHS PO Last administered on 10/02/17 19:27 ; Start 09/18/17 at 21:00 Baclofen (Lioresal) 10 mg PRN Q6HRS PRN PO Epileptic Spasms; Start 09/18/17 at 08:15 Bisacodyl (Dulcolax Supp) 10 mg PRN DAILY PRN RC CONSTIPATION Last administered on 09/25/17 10:15; Start 09/18/17 at 08:15 Clopidogrel Bisulfate (Plavix) 75 mg DAILY PO Last administered on 10/02/17 08: 18; Start 09/18/17 at 09:00 Furosemide (Lasix) 40 mg DAILY PO Last administered on 10/02/17 08:19; Start at 09:00 Acetaminophen/ Hydrocodone Bitart (Lortab 5/325) 1 tab PRN Q6HRS PRN PO PAIN Last administered on 09/24/17at 11:39; Start 09/18/17 at 08:15; Stop 09/24/17 at 15:38; Status DC Lisinopril (Prinivil) 5 mg DAILY PO Last administered on 10/02/17 08:19; Start 09/18/17 at 09:00 Sodium Biphosphate/ Sodium Phosphate (Fleet Adult) 133 ml PRN DAILY PRN RC CONSTIPATION; Start 09/18/17 at 08:15 Nitroglycerin (Nitrostat) 0.4 mg PRN Q5MIN PRN SL Unstable Angina; Start at 08:15 Nystatin (Nystop) 1 bob PRN BID PRN TP RASH; Start 09/18/17 at 08:15 Polyethylene Glycol (miraLAX) 17 gm DAILY PO Last administered on 10/01/17 08: 40; Start 09/18/17 at 09:00 Potassium Chloride (Klor-Con) 20 meq DAILY PO Last administered on 10/02/17 08: 18; Start 09/18/17 at 09:00 Senna/Docusate Sodium (Senna Plus) 2 tab PRN QHS PRN PO CONSTIPATION; Start at 08:15 Carvedilol (Coreg) 25 mg BIDWMEALS PO Last administered on 10/02/17 08:21; Start 09/18/17 at 09:00 Zinc Sulfate (Orazinc) 220 mg DAILY PO Last administered on 10/02/17 08:18; Start 09/18/17 at 09:00 Non-Formulary Medication ([prostat] ) 30 ml BIDWMEALS PO ; Start 09/18/17 at 17: 00; Status UNV Bupropion HCl (Wellbutrin Xl) 150 mg DAILY PO Last administered on 09/22/17 08 :22; Start 09/19/17 at 14:00; Stop 09/22/17 at 18:55; Status DC Magnesium Hydroxide (Milk Of Magnesia) 2,400 mg PRN DAILY PRN PO CONSTIPATION Last administered on 09/24/17 12:06; Start 09/22/17 at 13:00 Multivitamins/ Minerals ([place]) 1 tab DAILY PO Last administered on 10/02/17 08:18; Start 09/23/17 at 09:00 Bupropion HCl (Wellbutrin Xl) 300 mg DAILY PO Last administered on 09/27/17 07 :57; Start 09/23/17 at 09:00; Stop 09/28/17 at 09:00; Status DC Trazodone HCl (Desyrel) 100 mg QHS PO Last administered on 10/02/17 19:27; Start 09/22/17 at 21:00 Bupropion HCl (Wellbutrin Xl) 450 mg DAILY PO Last administered on 10/02/17 08: 18; Start 09/28/17 at 09:00 Acetaminophen/ Hydrocodone Bitart (Lortab 5/325) 1 tab PRN Q4HRS PRN PO PAIN Last administered on 10/02/17at 11:46; Start 09/24/17 at 15:45 Vitamin D (Vitamin D3) 50,000 unit WEEKLY PO Last administered on 09/26/17at 16: 35; Start 09/26/17 at 16:00 Lorazepam (Ativan) 0.25 mg PRN Q4HRS PRN PO ANXIETY / AGITATION; Start at 18:15 Amitriptyline HCl (Elavil) 25 mg HS PO Last administered on 10/02/17at 19:27; Start 09/29/17 at 21:00 Active Scripts Active Reported Trazodone Hcl 100 Mg Tablet 100 Mg PO QHS Bupropion Xl (Bupropion Hcl) 300 Mg Tab.er.24h 450 Mg PO DAILY Analgesic [place] (Methyl Salicylate/Menthol) 28 Gm Oint...g. 1 Bob TP PRN QID PRN Lorazepam 0.5 Mg Tablet 0.25 Mg PO PRN Q4HRS PRN D3-50 (Cholecalciferol (Vitamin D3)) 50,000 Unit Capsule 50,000 Unit PO WEEKLY Furosemide 40 Mg Tablet 40 Mg PO DAILY Clopidogrel (Clopidogrel Bisulfate) 75 Mg Tablet 75 Mg PO DAILY Zinc Sulfate 220 Mg Tablet 220 Mg PO DAILY C-500 (Ascorbic Acid) 500 Mg Tablet 500 Mg PO DAILY Tylenol (Acetaminophen) 325 Mg Tablet 650 Mg PO PRN Q6HRS PRN Tramadol Hcl (Tramadol HCl) 50 Mg Tablet 100 Mg PO QHS Seroquel (Quetiapine Fumarate) 25 Mg Tablet 25 Mg PO BID Senna-Docusate Sodium Tablet (Sennosides/Docusate Sodium) 1 Each Tablet 2 Tab PO PRN QHS PRN [prostat] 30 Ml PO BIDWMEALS Klor-Con M20 (Potassium Chloride) 20 Meq Tab.er.prt 20 Meq PO DAILY Nystop (Nystatin) 60 Gm Powder 1 Bob TP PRN BID PRN [place] 5-325 Tablet (Hydrocodone Bit/Acetaminophen) 1 Each Tablet 1 Tab PO PRN Q6HRS PRN Nitrostat (Nitroglycerin) 0.4 Mg Tab.subl 0.4 Mg SL PRN Q5MIN PRN Maalox Advanced Suspension (Mag Hydrox/Aluminum Hyd/Simeth) 355 Ml Oral.susp 30 Ml PO PRN QID PRN Multivitamins With Minerals (Multivitamin With Minerals) 1 Each Tablet 1 Tab PO DAILY Miralax (Polyethylene Glycol 3350) 17 Gm Powd.pack 17 Gm PO DAILY Milk Of Magnesia (Magnesium Hydroxide) 2,400 Mg/10 Ml Oral.susp 2,400 Mg PO PRN QID PRN Melatonin 3 Mg Tablet 3 Mg PO PRN QHS PRN Lisinopril 5 Mg Tablet 5 Mg PO DAILY Lexapro (Escitalopram Oxalate) 10 Mg Tablet 10 Mg PO DAILY Fleet Enema (Na Phos,M-B/Na Phos,Di-Ba) 133 Ml Enema 133 Ml RC PRN DAILY PRN Eliquis (Apixaban) 5 Mg Tablet 5 Mg PO BIDWMEALS Coreg (Carvedilol) 25 Mg Tablet 25 Mg PO BIDWMEALS Bisacodyl 10 Mg Supp.rect 10 Mg RC PRN DAILY PRN Baclofen 10 Mg Tablet 10 Mg PO PRN Q6HRS PRN Atorvastatin Calcium 10 Mg Tablet 10 Mg PO QHS Amitriptyline Hcl 50 Mg Tablet 50 Mg PO HS Allopurinol 300 Mg Tablet 300 Mg PO DAILY I have reviewed the current psychotropics carefully including drug interactions. Risk benefit ratio favors no change other than as noted in my dictated progress note. Diagnosis: Problems: (1) Anxiety disorder (2) Major depressive disorder, recurrent episode (3) Mild cognitive impairment MARILY LARSON MD Oct 02, 2017 20:52
[2017-10-03 06:18] VITALS: BP 110/58
[2017-10-03] MEDS: POLYETHYLENE GLYCOL 3350 17 GM PACKET. PO SCH ×2 (08:24→09:00)
[2017-10-03] MEDS: ALLOPURINOL 300 MG TABLET. PO SCH (08:25)
[2017-10-03] MEDS: FUROSEMIDE 40 MG TABLET PO SCH (08:25)
[2017-10-03] MEDS: CLOPIDOGREL BISULFATE 75 MG TABLET PO SCH (08:25)
[2017-10-03] MEDS: APIXABAN 5 MG TABLET. PO SCH (08:25)
[2017-10-03] MEDS: CITALOPRAM 20 MG TABLET. PO SCH (08:25)
[2017-10-03] MEDS: ASCORBIC ACID 500 MG TABLET PO SCH (08:25)
[2017-10-03] MEDS: QUEtiapine 25 MG TABLET. PO SCH (08:25)
[2017-10-03] MEDS: POTASSIUM CHLORIDE 20 MEQ TABLET.ER. PO SCH (08:25)
[2017-10-03 08:26] VITALS: BP 110/58
[2017-10-03] MEDS: LISINOPRIL 5 MG TABLET. PO SCH (08:26)
[2017-10-03] MEDS: ZINC SULFATE 220 MG CAPSULE. PO SCH (08:26)
[2017-10-03] MEDS: buPROPion XL 150 MG TAB.ER.24H PO SCH (08:26)
[2017-10-03] MEDS: CARVEDILOL 12.5 MG TABLET PO SCH (08:26)
[2017-10-03] MEDS: HYDROcodone/APAP 5/325MG 1 TAB TABLET PO PRN (08:29)
[2017-10-03] MEDS: CHOLECALCIFEROL (VITAMIN D3) 50,000 UNIT CAPSULE PO SCH (08:30)
[2017-10-03] MEDS: MULTIVITAMIN I-VITE TABLET. PO SCH (08:30)
--- NOTE | 2017-10-03 18:12 | PDOC ---
Exam Note: Bon Note: Please also refer to the separate dictated note~for this date of service dictated separately.~Patient seen individually. Discussed the patient with Nursing staff reviewed the chart.~Reviewed interim history and current functioning. Reviewed vital signs,~Labs/ Radiology~and current medications noted below. Continue current treatment with the changes noted in the dictated addendum note Assessment: Vital Signs: Vital Signs Date Time Temp Pulse Resp B/P (MAP) Pulse Ox O2 Delivery O2 Flow Rate FiO2 10/03/17 10:00 18 95 10/03/17 08:26 83 110/58 10/03/17 06:18 97.2 10/02/17 21:55 Room Air I&O Intake and Output 10/03/17 07:00 Intake Total 1560 ml Balance 1560 ml Intake Oral 1560 ml # Bowel Movements 2 Labs: Laboratory Tests Test 10/03/17 07:11 Glucose (Fingerstick) 77 mg/dL (70-99) Current Medications: Meds: Current Medications Ciprofloxacin (Cipro) 500 mg 1X ONCE PO ; Start 09/17/17 at 22:15; Stop at 22:30; Status DC Ciprofloxacin (Cipro) 500 mg 1X ONCE PO Last administered on 09/18/17at 00:08; Start 09/17/17 at 23:00; Stop 09/17/17 at 23:01; Status DC Multi-Ingredient Ointment (Analgesic [place]) 1 bob PRN QID PRN TP MUSCLE PAIN; Start 09/17/17 at 22:45; Stop 10/03/17 at 11:52; Status DC Amitriptyline HCl (Elavil) 50 mg HS PO Last administered on 09/28/17at 19:34; Start 09/18/17 at 21:00; Stop 09/28/17 at 22:19; Status DC Quetiapine Fumarate (SEROquel) 25 mg BID PO Last administered on 10/03/17at 08:25 ; Start 09/18/17 at 09:00; Stop 10/03/17 at 11:52; Status DC Citalopram Hydrobromide (CeleXA) 20 mg DAILY PO Last administered on 10/03/17at 08:25; Start 09/18/17 at 09:00; Stop 10/03/17 at 11:52; Status DC Melatonin 3 mg PRN QHS PRN PO INSOMNIA Last administered on 09/28/17 19:35; Start 09/17/17 at 23:00; Stop 10/03/17 at 11:52; Status DC Tramadol HCl (Ultram) 100 mg QHS PO Last administered on 10/02/17 19:31; Start 09/17/17 at 23:00; Stop 10/03/17 at 11:52; Status DC Acetaminophen (Tylenol) 650 mg PRN Q6HRS PRN PO PAIN / TEMP Last administered on 09/30/17 08:12; Start 09/18/17 at 08:15; Stop 10/03/17 at 11:52; Status DC Allopurinol (Zyloprim) 300 mg DAILY PO Last administered on 10/03/17 08:25; Start 09/18/17 at 09:00; Stop 10/03/17 at 11:52; Status DC Apixaban (Eliquis) 5 mg BIDWMEALS PO Last administered on 10/03/17 08:25; Start 09/18/17 at 08:00; Stop 10/03/17 at 11:52; Status DC Ascorbic Acid (Vitamin C) 500 mg DAILY PO Last administered on 10/03/17 08:25; Start 09/18/17 at 09:00; Stop 10/03/17 at 11:52; Status DC Atorvastatin Calcium (Lipitor) 10 mg QHS PO Last administered on 10/02/17 19:27 ; Start 09/18/17 at 21:00; Stop 10/03/17 at 11:52; Status DC Baclofen (Lioresal) 10 mg PRN Q6HRS PRN PO Epileptic Spasms; Start 09/18/17 at 08:15; Stop 10/03/17 at 11:52; Status DC Bisacodyl (Dulcolax Supp) 10 mg PRN DAILY PRN RC CONSTIPATION Last administered on 09/25/17 10:15; Start 09/18/17 at 08:15; Stop 10/03/17 at 11:52 ; Status DC Clopidogrel Bisulfate (Plavix) 75 mg DAILY PO Last administered on 10/03/17 08: 25; Start 09/18/17 at 09:00; Stop 10/03/17 at 11:52; Status DC Furosemide (Lasix) 40 mg DAILY PO Last administered on 10/03/17 08:25; Start at 09:00; Stop 10/03/17 at 11:52; Status DC Acetaminophen/ Hydrocodone Bitart (Lortab 5/325) 1 tab PRN Q6HRS PRN PO PAIN Last administered on 09/24/17at 11:39; Start 09/18/17 at 08:15; Stop 09/24/17 at 15:38; Status DC Lisinopril (Prinivil) 5 mg DAILY PO Last administered on 10/03/17at 08:26; Start 09/18/17 at 09:00; Stop 10/03/17 at 11:52; Status DC Sodium Biphosphate/ Sodium Phosphate (Fleet Adult) 133 ml PRN DAILY PRN RC CONSTIPATION; Start 09/18/17 at 08:15; Stop 10/03/17 at 11:52; Status DC Nitroglycerin (Nitrostat) 0.4 mg PRN Q5MIN PRN SL Unstable Angina; Start at 08:15; Stop 10/03/17 at 11:52; Status DC Nystatin (Nystop) 1 bob PRN BID PRN TP RASH; Start 09/18/17 at 08:15; Stop 10/03 at 11:52; Status DC Polyethylene Glycol (miraLAX) 17 gm DAILY PO Last administered on 10/01/17at 08: 40; Start 09/18/17 at 09:00; Stop 10/03/17 at 11:52; Status DC Potassium Chloride (Klor-Con) 20 meq DAILY PO Last administered on 10/03/17at 08: 25; Start 09/18/17 at 09:00; Stop 10/03/17 at 11:52; Status DC Senna/Docusate Sodium (Senna Plus) 2 tab PRN QHS PRN PO CONSTIPATION; Start at 08:15; Stop 10/03/17 at 11:52; Status DC Carvedilol (Coreg) 25 mg BIDWMEALS PO Last administered on 10/03/17 08:26; Start 09/18/17 at 09:00; Stop 10/03/17 at 11:52; Status DC Zinc Sulfate (Orazinc) 220 mg DAILY PO Last administered on 4/6/18at 08:26; Start 09/18/17 at 09:00; Stop 10/03/17 at 11:52; Status DC Non-Formulary Medication ([prostat] ) 30 ml BIDWMEALS PO ; Start 09/18/17 at 17: 00; Status UNV Bupropion HCl (Wellbutrin Xl) 150 mg DAILY PO Last administered on 09/22/17at 08 :22; Start 09/19/17 at 14:00; Stop 09/22/17 at 18:55; Status DC Magnesium Hydroxide (Milk Of Magnesia) 2,400 mg PRN DAILY PRN PO CONSTIPATION Last administered on 09/24/17 12:06; Start 09/22/17 at 13:00; Stop 10/03/17 at 11:52; Status DC Multivitamins/ Minerals ([place]) 1 tab DAILY PO Last administered on 10/03/17 08:30; Start 09/23/17 at 09:00; Stop 10/03/17 at 11:52; Status DC Bupropion HCl (Wellbutrin Xl) 300 mg DAILY PO Last administered on 09/27/17 07 :57; Start 09/23/17 at 09:00; Stop 09/28/17 at 09:00; Status DC Trazodone HCl (Desyrel) 100 mg QHS PO Last administered on 10/02/17 19:27; Start 09/22/17 at 21:00; Stop 10/03/17 at 11:52; Status DC Bupropion HCl (Wellbutrin Xl) 450 mg DAILY PO Last administered on 10/03/17 08: 26; Start 09/28/17 at 09:00; Stop 10/03/17 at 11:52; Status DC Acetaminophen/ Hydrocodone Bitart (Lortab 5/325) 1 tab PRN Q4HRS PRN PO PAIN Last administered on 10/03/17 08:29; Start 09/24/17 at 15:45; Stop 10/03/17 at 11 :52; Status DC Vitamin D (Vitamin D3) 50,000 unit WEEKLY PO Last administered on 10/03/17 08: 30; Start 09/26/17 at 16:00; Stop 10/03/17 at 11:52; Status DC Lorazepam (Ativan) 0.25 mg PRN Q4HRS PRN PO ANXIETY / AGITATION; Start at 18:15; Stop 10/03/17 at 11:52; Status DC Amitriptyline HCl (Elavil) 25 mg HS PO Last administered on 10/02/17at 19:27; Start 09/29/17 at 21:00; Stop 10/03/17 at 11:52; Status DC Active Scripts Active Reported Amitriptyline Hcl 25 Mg Tablet 25 Mg PO QHS Trazodone Hcl 100 Mg Tablet 100 Mg PO QHS Bupropion Xl (Bupropion Hcl) 300 Mg Tab.er.24h 450 Mg PO DAILY Analgesic [place] (Methyl Salicylate/Menthol) 28 Gm Oint...g. 1 Bob TP PRN QID PRN Lorazepam 0.5 Mg Tablet 0.25 Mg PO PRN Q4HRS PRN D3-50 (Cholecalciferol (Vitamin D3)) 50,000 Unit Capsule 50,000 Unit PO WEEKLY Furosemide 40 Mg Tablet 40 Mg PO DAILY Clopidogrel (Clopidogrel Bisulfate) 75 Mg Tablet 75 Mg PO DAILY Zinc Sulfate 220 Mg Tablet 220 Mg PO DAILY C-500 (Ascorbic Acid) 500 Mg Tablet 500 Mg PO DAILY Tylenol (Acetaminophen) 325 Mg Tablet 650 Mg PO PRN Q6HRS PRN MDD 4000mg Tramadol Hcl (Tramadol HCl) 50 Mg Tablet 100 Mg PO QHS Seroquel (Quetiapine Fumarate) 25 Mg Tablet 25 Mg PO BID Senna-Docusate Sodium Tablet (Sennosides/Docusate Sodium) 1 Each Tablet 2 Tab PO PRN QHS PRN Klor-Con M20 (Potassium Chloride) 20 Meq Tab.er.prt 20 Meq PO DAILY Nystop (Nystatin) 60 Gm Powder 1 Bob TP PRN BID PRN [place] 5-325 Tablet (Hydrocodone Bit/Acetaminophen) 1 Each Tablet 1 Tab PO PRN Q4HRS PRN Nitrostat (Nitroglycerin) 0.4 Mg Tab.subl 0.4 Mg SL PRN Q5MIN PRN Multivitamins With Minerals (Multivitamin With Minerals) 1 Each Tablet 1 Tab PO DAILY Miralax (Polyethylene Glycol 3350) 17 Gm Powd.pack 17 Gm PO DAILY Milk Of Magnesia (Magnesium Hydroxide) 2,400 Mg/10 Ml Oral.susp 2,400 Mg PO PRN DAILY PRN Melatonin 3 Mg Tablet 3 Mg PO PRN QHS PRN Lisinopril 5 Mg Tablet 5 Mg PO DAILY Lexapro (Escitalopram Oxalate) 10 Mg Tablet 10 Mg PO DAILY Fleet Enema (Na Phos,M-B/Na Phos,Di-Ba) 133 Ml Enema 133 Ml RC PRN DAILY PRN Eliquis (Apixaban) 5 Mg Tablet 5 Mg PO BIDWMEALS Coreg (Carvedilol) 25 Mg Tablet 25 Mg PO BIDWMEALS Bisacodyl 10 Mg Supp.rect 10 Mg RC PRN DAILY PRN Baclofen 10 Mg Tablet 10 Mg PO PRN Q6HRS PRN Atorvastatin Calcium 10 Mg Tablet 10 Mg PO QHS Allopurinol 300 Mg Tablet 300 Mg PO DAILY I have reviewed the current psychotropics carefully including drug interactions. Risk benefit ratio favors no change other than as noted in my dictated progress note. Diagnosis: Problems: (1) Mild cognitive impairment (2) Major depressive disorder, recurrent episode (3) Anxiety disorder MARILY LARSON MD Oct 03, 2017 18:12
--- NOTE | 2017-10-03 21:46 | PN ---
DATE: 10/01/2017 PSYCHIATRIC PROGRESS NOTE This late entry of 10/01/2017 covers elements not covered in my initial note of 10/01/2017. I met with the patient in the evening of 10/01/2017. SUBJECTIVE: The patient was quite sexually inappropriate the previous night, compliant with his medications, rude and sarcastic to nursing staff during the day of 10/01/2017 and I addressed this with him individually. REVIEW OF SYSTEMS: Ambulation impaired, in Broda chair. Complains of some discomfort in his coccygeal area. No CV, , pulmonary, eye, ENT system symptoms on review. MENTAL STATUS EXAM: Reasonably oriented. Speech is coherent, abstraction fair, computation impaired, language function intact. Mood and affect showing improvement, still dysphoric, anxious, somewhat obsessive. LABORATORY DATA: Reviewed. IMPRESSION: Major depressive disorder, recurrent, in partial remission; rest unchanged. PLAN: Continue psychotropics mentioned in my initial note, may need to increase Seroquel in due course, but will defer it since the patient is also on Wellbutrin-XL 450 mg a day. MAN Tatiana LARSON MD DR: ALEXSANDER/ana maria JOB#: [id number] / [id number]
--- NOTE | 2017-10-04 00:24 | PN ---
DATE: 10/02/2017 This late entry 10/02/2017 covers elements not covered in my initial note of 10/02/2017. SUBJECTIVE: The patient was staffed at treatment team meeting with the entire team morning of 10/02/2017 and seen individually evening of 10/02/2017. The patient slept 5-1/2 hours previous evening, at times makes inappropriate sexual comments, but otherwise doing better, less labile. No suicidal ideation. REVIEW OF SYSTEMS: Ambulation impaired, in Broda chair. Complains of some discomfort in his sacral area, nursing staff are addressing this. No CV, , pulmonary, eye, ENT system symptoms on review. MENTAL STATUS EXAM: Reasonably oriented. Speech is coherent, abstraction fair, computation impaired, language function intact. Mood and affect is improved. LABORATORY DATA: Reviewed. IMPRESSION: Major depressive disorder in partial remission. PLAN: Continue psychotropics mentioned in my initial note. MARILY LARSON MD DR: ALEXSANDER/ana maria JOB#: [id number] / [id number]
--- NOTE | 2017-10-05 15:47 | DS ---
DATE OF DISCHARGE: 10/03/2017 DISCHARGE SUMMARY/PSYCHIATRIC PROGRESS NOTE This is a late entry, date of service 10/03/2017, covers elements not covered in my initial note of 10/03/2017. REASON FOR ADMISSION: Please refer to the admission history for details. Briefly, the patient is a 67-year-old male referred to us from [facility] by his primary care physician on account of worsening symptoms of depression, hopelessness, helplessness with suicidal ideation, but without a plan. He was refusing his medication cares. He was sexually inappropriate in his comments to female staff members, increasingly agitated. He had failed outpatient psychiatric interventions resulting in this referral. Some of the symptoms of depression were exacerbated by the recent of his son from the patient was unconvinced that this was a suicide, but felt it was an accident. He was quite conflicted on all of these worsening his symptoms of depression. SIGNIFICANT FINDINGS AND CLINICAL COURSE: Following admission, the patient was seen daily individually by myself, followed medically per Dr. Wellington/Dr. Bowman. He was initially quite depressed, withdrawn, hopeless, worthless, suicidal, but denied active plans intent. Adjustments were made in his psychotropics and he seemed to respond to a combination of amitriptyline 25 mg at bedtime, which helped his insomnia better than anything else together with melatonin 3 mg at bedtime p.r.n., Seroquel 25 mg b.i.d., Wellbutrin-XL 450 mg daily, trazodone 100 mg at bedtime, may repeat x 1, Celexa 20 mg a day, Ativan p.r.n. REVIEW OF SYSTEMS: Prior to discharge on 10/03/2017. Ambulation impaired, in Broda chair. No CV, , pulmonary, eye, ENT system symptoms on review. Complained of some discomfort in his coccygeal area. MENTAL STATUS EXAM: Oriented to himself and situation. Speech coherent, abstraction fair, computation somewhat impaired, language function intact, attention span fair. Mood and affect is improved. No suicidal ideation at discharge. CONDITION AT DISCHARGE: Improved. FINAL DIAGNOSES: Major depressive disorder, recurrent, severe, in partial remission; cognitive disorder, unspecified; anxiety disorder, unspecified. Rest unchanged from admission. DISCHARGE MEDICATIONS: Please refer to the . DISCHARGE INSTRUCTIONS: Outpatient psychiatric and medical followup at the facility he was transitioned to. Time for discharge day management greater than 30 minutes. MARILY LARSON MD DR: ALEXSANDER/ana maria JOB#: [id number] / [id number]
== END 2017-10-03 10:00 | disposition home or self-care (01) | DRG 885 ==
LOC: ER 20:32 → GEROPSY 22:27
PROVIDERS: ADMIT Psychiatry & Neurology Psychiatry; ATTEND Psychiatry & Neurology Psychiatry
DX: F33.3 Major depressive disorder, recurrent, severe with psychotic symptoms (principal); E11.42 Type 2 diabetes mellitus with diabetic polyneuropathy; I48.91 Unspecified atrial fibrillation; L89.620 Pressure ulcer of left heel, unstageable; E11.51 Type 2 diabetes mellitus with diabetic peripheral angiopathy without gangrene; R45.851 Suicidal ideations; I69.354 Hemiplegia and hemiparesis following cerebral infarction affecting left non-dominant side; G40.909 Epilepsy, unspecified, not intractable, without status epilepticus; N39.0 Urinary tract infection, site not specified; G30.9 Alzheimer's disease, unspecified; F02.80 Dementia in other diseases classified elsewhere, unspecified severity, without behavioral disturbance, psychotic disturbance, mood disturbance, and anxiety; E78.5 Hyperlipidemia, unspecified; G47.00 Insomnia, unspecified; F01.50 Vascular dementia, unspecified severity, without behavioral disturbance, psychotic disturbance, mood disturbance, and anxiety; E78.00 Pure hypercholesterolemia, unspecified; F41.9 Anxiety disorder, unspecified; F63.9 Impulse disorder, unspecified; N40.0 Benign prostatic hyperplasia without lower urinary tract symptoms; M10.9 Gout, unspecified; I10 Essential (primary) hypertension; I25.5 Ischemic cardiomyopathy; Z66 Do not resuscitate; Z79.01 Long term (current) use of anticoagulants; Z79.899 Other long term (current) drug therapy; Z86.711 Personal history of pulmonary embolism; Z99.3 Dependence on wheelchair; Z88.1 Allergy status to other antibiotic agents
CPT/HCPCS: 36415; 73630; 80053; 80061; 81001; 82306; 82607; 82947; 83036; 83540; 83550; 83735; 84436; 84443; 84480; 84550; 85025; 85651; 86593; 87086; 93005; 93923; 99285-25